=== PATIENT | female | born 1945 | race Caucasian/White ===

== ENCOUNTER 2018-06-27 01:07 | Outpatient (CLI) | payer MEDICARE, OTHER, SELFPAY ==
--- NOTE | 2018-06-27 13:42 | DI.RAD_ITS ---
SYMPTOMS/DIAGNOSIS: LT LOW BACK PAIN, M54.5, OTHER CHRONIC PAIN, G89.29, PSORIASIS, LT HIP PAIN, M25.552 LUMBAR SPINE: The vertebral bodies are well maintained in height. There is minimal disc space narrowing at L 3 - 4. There are small endplate osteophytes. No spondylolysis, spondylolisthesis or scoliosis is seen. The aorta shows calcification and is normal in diameter. IMPRESSION: Mild degenerative changes, greatest at L 3 - 4. PELVIS AND LEFT HIP: The hip joint spaces are well maintained. There is minimal acetabular spurring. Mild spurring is seen at the SI joints. IMPRESSION: Mild degenerative changes.
== END 2018-06-27 01:27 ==
PROVIDERS: PCP Family Medicine; Visit Provider Family Medicine
DX: M54.5 Low back pain (principal); M47.816 Spondylosis without myelopathy or radiculopathy, lumbar region; G89.29 Other chronic pain; L40.9 Psoriasis, unspecified; M25.552 Pain in left hip; M16.12 Unilateral primary osteoarthritis, left hip
CPT/HCPCS: 72110; 73502

== ENCOUNTER 2019-01-16 01:08 | Outpatient (CLI) | payer MEDICARE, OTHER, SELFPAY | END 2019-01-16 01:28 | PROVIDERS: PCP Family Medicine; Visit Provider Family Medicine | DX: E03.9 Hypothyroidism, unspecified (principal); I10 Essential (primary) hypertension | CPT/HCPCS: 36415; 80053; 80061; 83721; 83036; 84443 ==

== ENCOUNTER 2019-01-17 08:20 | Outpatient (CLI) | payer MEDICARE, OTHER, SELFPAY ==
[2019-01-17 11:01] LABS: ALT 18 U/L (12-78); AST 15 U/L (15-37); Alkaline Phosphatase 89 U/L (46-116); Anion Gap 9.9 mmol/L (3-11); BUN 20 mg/dL (7-18); Bilirubin, Total 0.4 mg/dL (0.2-1.0); CO2 28.1 mmol/L (21.0-32.0); CREATININE 0.77 mg/dL (0.55-1.02); Calcium 9.3 mg/dL (8.5-10.1); Calculated LDL 217; Chloride 105 mmol/L (98-107); Cholesterol 286 mg/dL (50-200); Glucose 104 mg/dL (70-100); HDL Cholesterol 51 mg/dL (40-60); Potassium 4.5 mmol/L (3.5-5.1); Sodium 143 mmol/L (136-145); TSH (W/Ref FT4) 2.91 uIU/mL (0.358-3.74); Total Protein 7.2 g/dL (6.4-8.2); Triglyceride 94 mg/dL (30-150)
== END 2019-01-17 08:40 ==
PROVIDERS: PCP Family Medicine; Visit Provider Family Medicine
DX: I10 Essential (primary) hypertension (principal); E78.5 Hyperlipidemia, unspecified; E03.9 Hypothyroidism, unspecified; R73.09 Other abnormal glucose
CPT/HCPCS: 36415; 80053; 80061; 83721; 83036; 84443

== ENCOUNTER 2019-08-22 11:09 | Outpatient (CLI) | payer MEDICARE, OTHER, SELFPAY ==
--- NOTE | 2019-08-22 11:21 | DI.RAD_ITS ---
EXAM: XR WRIST RT COMPL NAVICULAR INDICATION: eval R wrist for OA. COMPARISON: No exams were available for comparison TECHNIQUE: 2D digital imaging was performed. FINDINGS: There is mild narrowing and subchondral sclerosis at the articulation of the scaphoid with quadrangul ar bones. Articular surfaces are otherwise well maintained. The bones are intact and normally mobile paramedical examiner alized. The soft tissues are unremarkable. IMPRESSION: Mild arthritic changes of the right wrist.
== END 2019-08-22 11:29 ==
PROVIDERS: PCP Family Medicine; Referring Provider Family Medicine; Visit Provider Student in an Organized Health Care Education/Training Program
DX: M25.531 Pain in right wrist (principal); M19.031 Primary osteoarthritis, right wrist; M67.431 Ganglion, right wrist; I10 Essential (primary) hypertension
CPT/HCPCS: 99203; 99214; 73110

== ENCOUNTER 2019-10-08 06:18 | Day surgery (SDC) | payer MEDICARE, OTHER, SELFPAY ==
[2019-10-08 06:15] VITALS: BP 154/80; PULSE 80; RESP 18; TEMP 36.5; O2SAT 96
[2019-10-08] MEDS: Lactated Ringers 1,000 ML 80 ML IV (06:50)
--- NOTE | 2019-10-08 07:11 | W.PREOPHP ---
Date of service: 10/08/19 Time of Service: 07:12 Assessment and Plan Assessment and plan (1) Ganglion cyst of volar aspect of right wrist: Status: Acute Assessment and plan: Nyla is a 74-year-old with a volar wrist ganglion. Has been present for some time and bothers her. I am concerned that some of her pain is coming from the underlying arthritis. Nevertheless, it is prominent in the interferes with her ability to garden and to use the hand fully. Therefore, I offered excision of the cyst. I reviewed risk to include bleeding, infection, pain, stiffness, recurrence, damage to nerves and vessels, damage to the artery peer despite these risks, she elects to proceed. History of Present Illness History of Present Illness Chief Complaint: Right wrist mass and pain Narrative: Nyla is a 74-year-old who has had a prominent right volar wrist cyst. This is fluctuated over time but continues to cause some discomfort. She also has some underlying arthritis. The cyst prominence has been bothersome to her and she desires it to be removed. She denies numbness or tingling. She denies any skin changes or discolorations. Review of Systems All systems reviewed & are unremarkable except as noted in HPI and below PFSH Medical History Abdominal pain (Chronic 06/02/14) Arthritis (Chronic) PSORIAFORM Chronic left shoulder pain (Chronic 01/02/17) Deviated nasal septum (Chronic) turbinate surgery Disorder of lung (Chronic 07/30/03) 08/03 CXR: RML CALCIFICATION; S/P bx Dyshidrosis [pompholyx] (Chronic) Dysphagia (Chronic 06/02/14) s/p barium swallow Essential hypertension (Chronic 05/24/13) Gastroesophageal reflux disease with esophagitis (Chronic) 97 GIRISH TEST POS; 07 EGD: GERD, NEG H. PYLORI GERD (gastroesophageal reflux disease) Hyperlipidemia (Chronic) LIPITOR RX Hypothyroidism Hypothyroidism (Chronic) CHRONIC THYROIDITIS, S/P BX '97 Impaired fasting glucose (Chronic 07/04/11) Irritable colon (Chronic) RECURRENT ABD PAIN; NEG GB Joint pain (Chronic 04/29/12) HAND Knee pain (Chronic) PES ANSERINE BURSITIS; S/P TKR Medial epicondylitis of right elbow (Chronic 04/18/17) Medial epicondylitis of right elbow (Resolved 04/18/17) Neck pain (Chronic) DECREASED L BICEPS JERK; C5-6 NARROWING Neck pain (Inactive) Obstructive sleep apnea syndrome (Chronic) Sleep study showed moderate obstructive sleep apnea w/ some desaturation; no CPAP due to claustrophobia ASHLEIGH (obstructive sleep apnea) Osteopenia (Chronic) DEXA 03: -1.3/-0.3/-0.1; DEXA 05: -1.8/-0.9/-1.1 Psoriasis (Chronic 01/18/18) Pulmonary embolism (Chronic 12/07/12) Thought to be secondary to recent total knee replacement done [place] [facility] [place]. RUQ abdominal pain (Chronic 06/19/17) Seborrheic keratosis (Chronic 04/18/17) Stress due to illness of family member (Chronic 05/24/16) pulmonary hypertension Tubular adenoma (Chronic 11/28/17) Vitamin D deficiency (Chronic 07/08/11) Surgical History Colonoscopy - MAC (11/28/17) History of appendectomy (Resolved) History of hand surgery (Resolved) Hysterectomy, Laproscopic TOTAL; AGE 33. KNEE REPAIR (~2011) TORN MINISCUS Replacement of total knee joint RIGHT Family History Mother , 83 COPD (chronic obstructive pulmonary disease) Father , 65 Lung cancer Brain cancer Brother Psoriasis Maternal Grandfather No problems noted. Paternal Grandfather MS (multiple sclerosis) Maternal Grandmother Diabetes Paternal Grandmother Diabetes Son Essential hypertension Anxiety Hyperlipidemia Daughter Thyroid cancer Brother No problems noted. Social History Smoking/Tobacco Use Status: Never Alcohol Intake: current Alcohol Intake frequency: holidays/special occasions only Alcohol type: wine Drug use: Never Substance use type: does not use Caregiver/Support person: No Household members: spouse Housing: house Communication Needs: None Do you need help understanding health information?: Never Pets and animals: Yes Pets and animals: cat(s) Sexually active: No Do you think of yourself as: straight/heterosexual Current gender identity: female What is your relationship status?: How often do you talk on the phone with friends or family?: three or more times per week How often do you get together with friends or relatives?: three or more times per week How often do you attend nondenominational or zoroastrian services?: decline to answer Do you belong to any clubs or organized social groups?: yes Panel score (0-1 are the most socially isolated patients): 3 What type of physical activity do you participate in: walking and other Details: floor exercises Duration: < 15 minutes/day Frequency: 3-4 times per week Claudia/Sabianism: Methodist Special claudia needs: No Seatbelt use: always Drive intox or ride w/intox driver manager: No Do you feel safe at home: Yes Meds Home Medications and Allergies Home Medications Medication Instructions Recorded Confirmed Type cholecalciferol (vitamin D3) 1,000 unit PO DAILY 11/15/12 10/08/19 History betamethasone dipropionate 2 - 5 gm TOPICAL BID PRN #45 gm 10/30/17 09/02/19 History fluticasone propionate 2 spry NS BID PRN #1 bottle 01/05/18 09/02/19 History mometasone 0.1 % topical cream 1 applic TP DAILY #50 gm 10/15/18 10/08/19 Rx levothyroxine 50 mcg tablet 50 mcg PO DAILY #90 tab-cap 01/07/19 10/08/19 Rx losartan 100 mg tablet 100 mg PO DAILY #90 tab-cap 01/07/19 10/08/19 Rx pantoprazole 40 mg tablet,delayed 40 mg PO DAILY PRN #90 tab-cap 01/07/19 10/08/19 Rx release bupropion HCl 100 mg tablet,12 hr 100 mg PO BID #180 tab-cap 03/01/19 10/08/19 Rx sustained-release lorazepam 1 mg tablet 1 mg PO BID PRN #20 tab MDD 4 09/26/19 10/08/19 Rx Allergies Allergy/AdvReac Type Severity Reaction Status Date / Time neomycin Allergy Unknown Unverified 10/08/19 06:34 piperazine Allergy Unknown Unverified 10/08/19 06:34 Opioids - Morphine Analogues AdvReac Severe Psychosis Unverified 10/08/19 06:34 Nuepeto-Exd-Afm Reductase AdvReac Mild MUSCLE PAIN Unverified 10/08/19 06:34 Inhibitor Exam Const General: cooperative Nutritional Appearance: average body habitus Orientation: alert, awake and oriented x3 Resp Effort & Inspection: normal respiratory effort Auscultation: clear to auscultation bilaterally Cardio Rate: regular rate Rhythm: regular rhythm Extrem Other: Evaluation of the right wrist shows a 2 and half centimeter long volar wrist cyst. It is just ulnar to the radial artery. He does not change position with thumb flexion or wrist flexion. There is mild pain to palpation. Sensation intact light touch over the median, radial, ulnar nerve. Joseph test shows no dominance and hand blood flow. Palpable radial pulse. Results Last Vital Signs Temp 36.5 C 10/08/19 06:15 Pulse 80 10/08/19 06:15 Resp 18 10/08/19 06:15 BP 154/80 H 10/08/19 06:15 Pulse Ox 96 10/08/19 06:15
[2019-10-08] MEDS: Sodium Bicarbonate 50 MEQ/50 ML VIAL (07:38)
--- NOTE | 2019-10-08 08:16 | PDOC.DSDIS_ITS ---
Discharge Plan Disposition Patient Disposition: HOME Condition: Good Discharge Details Reason For Visit: Right volar wrist ganglion Attending Provider: Nicholas Vázquez Primary Care Provider: Suzanne Bunn Home Meds and New Rx's Prescriptions: New acetaminophen 500 mg tablet 1,000 mg PO Q8H PRN (Reason: pain) Qty: 60 RF: 3 ibuprofen 600 mg tablet 600 mg PO TID PRNQty: 30 RF: 3 Continued lorazepam 1 mg tablet 1 mg PO BID MDD 4 PRN (Reason: agitation) Qty: 20 RF: 0 cholecalciferol (vitamin D3) 1,000 UNIT capsule 1,000 unit PO DAILY RF: 0 betamethasone dipropionate 15 GM ointment 2 - 5 gm Topical BID PRNQty: 45 RF: 12 fluticasone propionate 16 GM spray,suspension 2 spry NS BID PRNQty: 1 RF: 12 mometasone 0.1 % cream 1 applic TP DAILY Qty: 50 RF: 4 levothyroxine 50 mcg tablet 50 mcg PO DAILY Qty: 90 RF: 12 losartan 100 mg tablet 100 mg PO DAILY Qty: 90 RF: 12 pantoprazole 40 mg tablet,delayed release (DR/EC) 40 mg PO DAILY PRN (Reason: GERD) Qty: 90 RF: 4 bupropion HCl [Wellbutrin SR] 100 mg tablet sustained-release 12 hr 100 mg PO BID Qty: 180 RF: 4 Discharge Instructions Additional Instructions: Activity: You may use your fingers for light activity. You should limit any excessive motion or forceful gripping for the first few weeks. You should wear the brace for support with any repetitive or heavy activities. Dressings: You should keep the initial surgical dressing in place for at least 2-3 days. You may remove your dressings and get the wound wet after 3 days. You should keep the dressings and the wound clean at all times. All of your sutures are buried in the skin. He can keep the wound covered with a light piece of gauze or Band-Aid until your follow-up. Medications: - You should take Tylenol (up to 1000 mg every 8 hours as needed ) and Ibuprofen (600 mg every 8 hours as needed) around the clock as prescribed or per blanket cutting machine operator's recommendations. Follow-up: 7-10 days for wound check and suture removal. Referrals: Nicholas Vázquez MD [ [facility] STAFF PHYSICIAN] - Equipment/Supplies: Brace Activity:: Elevate Remove Dressings/Wound Care:: 48 hours Shower/Bathe:: 48 hours Diet:: As Tolerated Discharge Orders Discharge Orders: Discharge Order (Routine); Ordered 10/08/19 Ordered By: Nicholas Vázquez DS: Diagnosis Discharge Diagnosis (1) Ganglion cyst of volar aspect of right wrist: Status: Acute
[2019-10-08 08:45] VITALS: BP 146/74; PULSE 67; RESP 18; TEMP 36.4; O2SAT 97
--- NOTE | 2019-10-08 22:42 | W.PM.OP ---
Date of service: 10/08/19 Time of Service: 08:42 Operative Note Operative Note DATE OF PROCEDURE: 10/08/19 PRE-OP DIAGNOSIS: Right volar Wrist Ganglion Cyst POST-OP DIAGNOSIS: other (Left Volar Wrist Ruptured Cyst) PROCEDURE: Excision of volar wrist mass - Right wrist SURGEON: Nicholas Vázquez ANESTHESIA: MAC ESTIMATED BLOOD LOSS: 0 PATHOLOGY: none sent TOURNIQUET TIME: 16 COMPLICATIONS: None Patient was transported to: PACU Patient's condition: stable Indications: Nyla is a 74yo female who I have seen for a volar wrist ganglion cyst. It has continued to be bothersome despite some conservative options. Its size and interference with activities continues to cause problems. Therefore, I offered excision of the volar wrist cyst. I discussed the risks to include bleeding, infection, pain, stiffness, damage to nerve and vessels, recurrence. Despite these risks, she elects to proceed. Findings: There is no notable cyst. There was a significant amount of fibrofatty and inflammatory tissue which could represent previous cyst rupture in the area of the mass felt by the patient. This tissue was resected and traced down all the way to the radioscaphoid joint. Procedure Description: Nyla was greeted in the preoperative holding area. Identity was confirmed and the correct site was identified and marked. Consent was reviewed the patient and signed. History and physical was updated. The patient to take not to the operating room placed in supine position. All bony prominences were well-padded. A nonsterile tourniquet was placed high up onto the right arm. The arms and prepped with ChloraPrep and draped in a standard fashion. The surgical site was marked on the skin and injected with 1% lidocaine with epinephrine buffered with sodium bicarbonate. The limb was exsanguinated and the tourniquet was inflated to 250 mmHg where it stayed for 16 minutes. The skin was incised sharply. Deeper dissection was carried out with tenotomy scissors and careful attention to vascular branches in this area. There is no noticeable cyst. In the level of the cyst and where the patient felt the mass there was a significant of fibrofatty tissue which had some inflammatory changes to it. This was dissected away from the radial artery and the deeper structures and this tissue was resected. Once again, I did not find any cystic structure. This was followed down all the way to the carpus. The wound was then thoroughly irrigated. The tourniquet was deflated. There is no major arterial bleeding in any other persistent ooze was cauterized with the bipolar electrocautery. The wound was dry. The deep layer was reapproximated with a 3-0 Vicryl. The skin was closed with a running 4-0 Monocryl followed by skin glue, gauze, and Panfilo wrap. The wrist was placed into a removable wrist brace. At the end the case all counts were correct. The patient was awakened from anesthesia and taken to the PACU in stable condition. There were no noted complications.
== END 2019-10-08 09:01 | disposition home or self-care (01) ==
PROVIDERS: PCP Family Medicine; Visit Provider Student in an Organized Health Care Education/Training Program
PROC: (CPT 25075; principal; 2019-10-08 07:30)
DX: R22.32 Localized swelling, mass and lump, left upper limb (principal)
CPT/HCPCS: 25075; NC; J1885; J2001; J2405; L3908

== ENCOUNTER 2020-01-28 11:37 | Outpatient (REF) | payer MEDICARE, OTHER, SELFPAY ==
[2020-01-28 14:46] LABS: ALT 20 U/L (14-59); AST 18 U/L (15-37); Albumin 4.2 g/dL (3.4-5.0); Alkaline Phosphatase 79 U/L (46-116); Anion Gap 9.8 mmol/L (3-11); BUN 22 mg/dL (7-18); Bilirubin, Total 0.5 mg/dL (0.2-1.0); CO2 27.2 mmol/L (21.0-32.0); Calcium 9.2 mg/dL (8.5-10.1); Chloride 104 mmol/L (98-107); Glucose 100 mg/dL (74-106); Potassium 4.2 mmol/L (3.5-5.1); Sodium 141 mmol/L (136-145); TSH (W/Ref FT4) 1.18 uIU/mL (0.36-3.74); Total Protein 7.2 g/dL (6.4-8.2)
[2020-01-28 14:50] LABS: Hemoglobin A1C 5.8 % (3.8-5.6)
[2020-01-30 04:29] LABS: Vitamin D 25 Total 52.4 ng/ml (30-100)
== END 2020-01-28 11:57 ==
LOC: LBN 11:37
PROVIDERS: PCP Family Medicine; Visit Provider Family Medicine
DX: E03.9 Hypothyroidism, unspecified (principal); I10 Essential (primary) hypertension; E11.9 Type 2 diabetes mellitus without complications; M85.80 Other specified disorders of bone density and structure, unspecified site
CPT/HCPCS: 80053; 82306; 83036; 84443

== ENCOUNTER 2020-01-29 02:19 | Outpatient (CLI) | payer MEDICARE, OTHER, SELFPAY ==
--- NOTE | 2020-01-29 07:00 | DI.MAMMO_ITS ---
EXAM: MG MAMMO SCREENING CLINICAL HISTORY: screening, Z12.39 TECHNIQUE: Bilateral full field digital CC and MLO mammographic images were obtained with 3D tomosyn thesis and utilizing computer aided detection (CAD). COMPARISON: Available for comparison. FINDINGS: Masses/Architectural Distortion: None seen. Microcalcifications: No suspicious pleomorphic-type are seen. Skin Thickening/Nipple Retraction: None. IMPRESSION: 1. No significant interval change with no specific features of malignancy noted. 2. Unless there is more urgent need, screening mammography is recommended, as per [employer] guidelines. BI-RADS Category 1 - Negative Breast Density - Category B - Scattered areas of fibroglandular density A negative radiographic report should not delay biopsy if a dominant or clinically suspicious mass is present. Up to ten percent of cancers are not identified on mammography. A negative report may reinforce clinical impression. Adenosis and dense breasts may obscure an underlying neoplasm. False positive reports average 6 to 10%. Patient will receive a letter notifying them of these results.
== END 2020-01-29 02:39 ==
PROVIDERS: PCP Family Medicine; Visit Provider Family Medicine
DX: Z12.31 Encounter for screening mammogram for malignant neoplasm of breast (principal)
CPT/HCPCS: 77063; 77067

== ENCOUNTER 2020-03-18 03:01 | Outpatient (CLI) | payer MEDICARE, OTHER, SELFPAY ==
[2020-03-18 08:52] LABS: Absolute Basophil Count 0.03 10^3/uL (0.0-0.2); Absolute Eosinophil Count 0.07 10^3/uL (0.0-0.7); Absolute Lymphocyte Count 1.41 10^3/uL (1.2-3.4); Absolute Monocyte Count 0.38 10^3/uL (0.1-0.8); Absolute Neutrophil Count 2.48 10^3/uL (1.2-6.7); Basophils % 0.7; Eosinophils % 1.6; HCT 39.2 % (36.0-46.0); HGB 13.2 g/dL (11.2-15.7); Lymphocytes % 32.3; MCH 29.7 pg (27.0-33.0); MCHC 33.7 % (32.0-36.0); MCV 88.1 fL (80-95); MPV 13.5 fL (8.0-11.0); Monocytes % 8.7; Neutrophils % 56.7; Nucleated RBC 0 %; Platelet Count 158 10^3/uL (130-400); RBC 4.45 10^6/uL (3.93-5.22); RDW 12.9 % (11.7-14.6); RDW-SD 41.7 fL; WBC 4.37 10^3/uL (4.4-10.8)
[2020-03-18 09:37] LABS: C-Reactive Protein < 0.05 mg/dL (0.0-0.3)
[2020-03-18 10:47] LABS: ESR 12 mm/hr (0-30)
[2020-03-19 09:55] LABS: Lyme Ab w Rflx to Lyme Confirm Negative (Negative)
[2020-03-20 00:14] LABS: Anaplasma phagocytophilum Negative (Negative); B. miyamotoi PCR Negative (Negative); Babesia divergens/MO-1 Negative (Negative); Babesia duncani Negative (Negative); Babesia microti Negative (Negative); Ehrlichia chaffeensis Negative (Negative); Ehrlichia ewingii/canis Negative (Negative); Ehrlichia muris eauclairensis Negative (Negative)
== END 2020-03-18 03:21 ==
PROVIDERS: PCP Family Medicine; Visit Provider Family Medicine
DX: M25.50 Pain in unspecified joint (principal)
CPT/HCPCS: 36415; 85652; 87798; 84443; 85025; 86140; 86618

== ENCOUNTER 2021-05-21 02:08 | Outpatient (CLI) | payer MEDICARE, OTHER, SELFPAY ==
[2021-05-21 09:36] LABS: ALT 22 U/L (14-59); AST 15 U/L (15-37); Albumin 3.9 g/dL (3.4-5.0); Alkaline Phosphatase 91 U/L (46-116); Anion Gap 7.4 mmol/L (3-11); BUN 21 mg/dL (7-18); Bilirubin, Total 0.4 mg/dL (0.2-1.0); CO2 32.6 mmol/L (21.0-32.0); CREATININE 0.8 mg/dL (0.55-1.02); Calcium 9.3 mg/dL (8.5-10.1); Calculated LDL 210 mg/dL (<100); Chloride 102 mmol/L (98-107); Cholesterol 284 mg/dL (<200); Glucose 98 mg/dL (74-106); HDL Cholesterol 46 mg/dL (40-60); Potassium 4.4 mmol/L (3.5-5.1); Sodium 142 mmol/L (136-145); TSH (W/Ref FT4) 4.55 uIU/mL (0.36-3.74); Total Protein 7.4 g/dL (6.4-8.2); Triglyceride 144 mg/dL (<150); Vitamin B12 308 pg/mL (193-986)
[2021-05-21 09:54] LABS: FREE T4 0.94 ng/dL (0.76-1.46)
== END 2021-05-21 02:09 | disposition home or self-care (01) ==
LOC: LBO 02:08
PROVIDERS: PCP Family Medicine; Visit Provider Family Medicine
DX: I10 Essential (primary) hypertension (principal); E78.5 Hyperlipidemia, unspecified; E03.9 Hypothyroidism, unspecified; R73.01 Impaired fasting glucose; E55.9 Vitamin D deficiency, unspecified; F32.9 Major depressive disorder, single episode, unspecified; M85.80 Other specified disorders of bone density and structure, unspecified site
CPT/HCPCS: 36415; 80053; 80061; 82607; 84439; 84443

== ENCOUNTER 2022-01-05 04:00 | Outpatient (CLI) | payer MEDICARE, OTHER, SELFPAY ==
[2022-01-05 14:25] LABS: TSH (W/Ref FT4) 1.28 uIU/mL (0.36-3.74)
[2022-01-06 10:02] LABS: Lyme Ab w Rflx to Lyme Confirm Negative (Negative)
[2022-01-07 12:47] LABS: Anaplasma phagocytophilum Negative (Negative); B. miyamotoi PCR Negative (Negative); Babesia divergens/MO-1 Negative (Negative); Babesia duncani Negative (Negative); Babesia microti Negative (Negative); Ehrlichia chaffeensis Negative (Negative); Ehrlichia ewingii/canis Negative (Negative); Ehrlichia muris eauclairensis Negative (Negative)
== END 2022-01-05 04:01 | disposition home or self-care (01) ==
LOC: LOS 04:00
PROVIDERS: PCP Family Medicine; Visit Provider Family Medicine
DX: S40.862A Insect bite (nonvenomous) of left upper arm, initial encounter (principal); W57.XXXA Bitten or stung by nonvenomous insect and other nonvenomous arthropods, initial encounter; I10 Essential (primary) hypertension
CPT/HCPCS: 36415; 87798; 84443; 86618

== ENCOUNTER 2022-08-17 03:08 | Outpatient (CLI) | payer MEDICARE, OTHER, SELFPAY ==
[2022-08-17 09:28] LABS: ALT 19 U/L (14-59); AST 21 U/L (15-37); Albumin 4.2 g/dL (3.4-5.0); Alkaline Phosphatase 83 U/L (46-116); Anion Gap -1.1 mmol/L (3-11); BUN 23 mg/dL (7-18); Bilirubin, Total 0.6 mg/dL (0.2-1.0); CO2 32.1 mmol/L (21.0-32.0); Calcium 9.6 mg/dL (8.5-10.1); Chloride 103 mmol/L (98-107); Estimated GFR 58.02 (mL/min/1.73m2); Glucose 104 mg/dL (74-106); Potassium 3.7 mmol/L (3.5-5.1); Sodium 134 mmol/L (136-145); TSH (W/Ref FT4) 2.27 uIU/mL (0.36-3.74); Total Protein 7.8 g/dL (6.4-8.2)
[2022-08-18 14:29] LABS: Hemoglobin A1C 5.8 % (<5.7)
== END 2022-08-17 03:09 | disposition home or self-care (01) ==
LOC: LBO 03:08
PROVIDERS: PCP Family Medicine; Visit Provider Family Medicine
DX: E03.9 Hypothyroidism, unspecified (principal); I10 Essential (primary) hypertension; R73.01 Impaired fasting glucose; R13.10 Dysphagia, unspecified
CPT/HCPCS: 36415; 80053; 83036; 84443

== ENCOUNTER 2023-02-01 01:52 | Outpatient (CLI) | payer MEDICARE, SELFPAY ==
--- NOTE | 2023-02-01 07:00 | DI.RAD_ITS ---
Exam(s) XR KNEE LT 3V AP,LAT,NANCY EXAM: XR KNEE LT 3V AP,LAT,NANCY CLINICAL HISTORY: l knee pain, M25.562. TECHNIQUE: 2D digital imaging was performed. Three views. COMPARISON: CR LEFT KNEE 3 VIEW COMPLETE from 04/17/2012 FINDINGS: BONES: No acute fracture is present. No bony destructive lesion is seen. JOINTS: There is severe narrowing of the medial femoral tibial joint space, periarticular spurring an d sclerosis. There is varus angulation. There is mild spurring at the tibial spines and femoral int ercondylar notch as well as patellofemoral joint. A small joint effusion is seen. SOFT TISSUE: Normal. IMPRESSION: Severe degenerative change of the medial femoral tibial joint. DATA REPOSITORY: RADIATION DOSE DELIVERED:
== END 2023-02-01 02:12 ==
LOC: DI 01:52
PROVIDERS: PCP Family Medicine; Visit Provider Family Medicine
DX: M17.9 Osteoarthritis of knee, unspecified (principal)
CPT/HCPCS: 73562

== ENCOUNTER 2023-02-07 03:34 | Outpatient (CLI) | payer MEDICARE, SELFPAY ==
[2023-02-07 12:41] LABS: ALT 17 U/L (14-59); AST 14 U/L (15-37); Albumin 3.8 g/dL (3.4-5.0); Alkaline Phosphatase 88 U/L (46-116); Anion Gap 7.3 mmol/L (3-11); BUN 21 mg/dL (7-18); Bilirubin, Total 0.4 mg/dL (0.2-1.0); CO2 29.7 mmol/L (21.0-32.0); CREATININE 0.9 mg/dL (0.55-1.02); Calcium 9.2 mg/dL (8.5-10.1); Chloride 105 mmol/L (98-107); Estimated GFR 65.84 (mL/min/1.73m2); Glucose 106 mg/dL (74-106); Potassium 3.8 mmol/L (3.5-5.1); Sodium 142 mmol/L (136-145); TSH (W/Ref FT4) 1.94 uIU/mL (0.36-3.74); Total Protein 7.2 g/dL (6.4-8.2)
== END 2023-02-07 03:35 | disposition home or self-care (01) ==
LOC: LOS 03:34
PROVIDERS: PCP Family Medicine; Visit Provider Family Medicine
DX: I10 Essential (primary) hypertension (principal); R13.10 Dysphagia, unspecified
CPT/HCPCS: 36415; 80053; 84443

== ENCOUNTER 2023-02-13 03:47 | Outpatient (CLI) | payer MEDICARE, SELFPAY ==
--- NOTE | 2023-02-13 06:45 | DI.NM_ITS ---
Exam(s) NM BONE SCAN 3 PHASE EXAM: NM BONE SCAN 3 PHASE CLINICAL HISTORY: H/O RT KNEE REPLACEMENT,? LOOSENING, RT KNEE PAIN, M25.561. TECHNIQUE: Injected Dose: 25 mCi Tc-99m MDP COMPARISON: CR XR KNEE LT 3V AP,LAT,NANCY from 02/01/2023 CR XR KNEE RT 3V AP,LAT,NANCY from 02/13/2023 FINDINGS: Perfusion: Symmetric. Blood Pool: Symmetric. Delayed: Increased activity noted in the medial femoral tibial joint space of the left knee consisten t with a severe degenerative changes seen on recent plain. Right knee shows increased activity at th e patella. Whole body images are unremarkable. IMPRESSION: Increased activity at the right patella. No definite abnormality is visible on plain films. Increased activity in the medial femoral tibial joint consistent with severe degenerative changes. DATA REPOSITORY:
--- NOTE | 2023-02-13 06:45 | DI.RAD_ITS ---
Exam(s) XR KNEE RT 3V AP,LAT,NANCY EXAM: XR KNEE RT 3V AP,LAT,NANCY CLINICAL HISTORY: slipping of r knee replacement,RT KNEE PAIN,H/O REPLACEMENT OF TOTAL KNEE. TECHNIQUE: 2D digital imaging was performed. Three views. COMPARISON: CR RIGHT KNEE COMPLETE from 03/29/2017 FINDINGS: There has been no change in the alignment of the total knee prosthesis. There are no surrounding abn ormal lucencies. No visible joint effusion. IMPRESSION: No acute abnormality. DATA REPOSITORY: RADIATION DOSE DELIVERED:
== END 2023-02-13 04:07 ==
LOC: DI 03:47
PROVIDERS: PCP Family Medicine; Visit Provider Family Medicine
DX: Z47.1 Aftercare following joint replacement surgery; Z96.652 Presence of left artificial knee joint; M17.11 Unilateral primary osteoarthritis, right knee
CPT/HCPCS: 73562; 78315

== ENCOUNTER 2023-02-23 03:20 | Outpatient (CLI) | payer MEDICARE, SELFPAY ==
--- NOTE | 2023-02-23 08:00 | DI.RAD_ITS ---
Exam(s) XR LUMBAR SPINE COMPLETE EXAM: XR LUMBAR SPINE COMPLETE CLINICAL HISTORY: LOW BACK PAIN and leg pain,LUMBAR RADICULOPATHY,M54.16. TECHNIQUE: 2D digital imaging was performed. COMPARISON: CR LUMBAR SPINE COMPLETE from 04/17/2012 FINDINGS: Five views. No evidence of fracture or listhesis nor intra-articular these facts. There is mild disc space narro wing at L3-4 level. Mild facet arthropathy also evident at this level. Other disc spaces exhibit no rmal height. No scoliosis. Bone density normal. SI joints age-appropriate. Calcifications are noted in both sides of the upper abdomen which are probably calcified granulomas i n the liver and spleen. IMPRESSION: As above. DATA REPOSITORY: RADIATION DOSE DELIVERED:
== END 2023-02-23 03:40 ==
LOC: DI 03:20
PROVIDERS: PCP Family Medicine; Visit Provider Family Medicine
DX: M47.26 Other spondylosis with radiculopathy, lumbar region; M54.50 Low back pain, unspecified
CPT/HCPCS: 72110

== ENCOUNTER → 2023-03-27 07:56 | Outpatient (BNVA) | payer MEDICARE, SELFPAY | PROVIDERS: PCP Family Medicine; Referring Provider Family Medicine; Visit Provider Student in an Organized Health Care Education/Training Program | DX: M17.12 Unilateral primary osteoarthritis, left knee (principal); M70.52 Other bursitis of knee, left knee; M76.891 Other specified enthesopathies of right lower limb, excluding foot | CPT/HCPCS: 20610; 99203; J1040 ==

== ENCOUNTER 2023-06-06 12:39 | Outpatient (REF) | payer MEDICARE, SELFPAY | END 2023-06-06 12:40 | disposition home or self-care (01) | LOC: LBN 12:39 | PROVIDERS: PCP Family Medicine; Visit Provider Family Medicine | DX: N76.0 Acute vaginitis (principal) | CPT/HCPCS: 87480; 87510; 87660 ==

== ENCOUNTER → 2023-07-03 14:17 | Outpatient (BNVA) | payer MEDICARE, SELFPAY | PROVIDERS: PCP Family Medicine; Referring Provider Family Medicine; Visit Provider Student in an Organized Health Care Education/Training Program | DX: M17.12 Unilateral primary osteoarthritis, left knee (principal); M70.52 Other bursitis of knee, left knee; M76.891 Other specified enthesopathies of right lower limb, excluding foot; Z96.651 Presence of right artificial knee joint | CPT/HCPCS: 20610; J1040 ==

== ENCOUNTER 2023-09-18 04:49 | Outpatient (CLI) | payer MEDICARE, SELFPAY ==
[2023-09-18 15:02] LABS: HCT 40.4 % (36.0-46.0); HGB 13.7 g/dL (11.2-15.7); MCHC 33.9 % (32.0-36.0); MCV 88 fL (80-95); MPV 11.4 fL (8.0-11.0); Platelet Count 214 10^3/uL (130-400); RBC 4.57 10^6/uL (3.93-5.22); RDW 12.7 % (11.7-14.6); RDW-SD 41.2 fL; WBC 5.72 10^3/uL (4.4-10.8)
[2023-09-18 15:37] LABS: Anion Gap 7.4 mmol/L (3-11); BUN 21 mg/dL (7-18); CO2 32.6 mmol/L (21.0-32.0); CREATININE 0.9 mg/dL (0.55-1.02); Calcium 9.4 mg/dL (8.5-10.1); Chloride 102 mmol/L (98-107); Estimated GFR 65.44 (mL/min/1.73m2); Glucose 89 mg/dL (74-106); Potassium 3.7 mmol/L (3.5-5.1); Sodium 142 mmol/L (136-145)
== END 2023-09-18 04:50 | disposition home or self-care (01) ==
LOC: LBO 04:49
PROVIDERS: PCP Family Medicine; Visit Provider Student in an Organized Health Care Education/Training Program
DX: Z01.818 Encounter for other preprocedural examination (principal); M17.12 Unilateral primary osteoarthritis, left knee
CPT/HCPCS: 36415; 80048; 85027

== ENCOUNTER 2023-09-18 15:55 | Outpatient (CLI) | payer MEDICARE, SELFPAY ==
--- NOTE | 2023-09-18 13:23 | DI.RAD_ITS ---
Exam(s) XR STANDING ALIGNMENT EXAM: XR STANDING ALIGNMENT CLINICAL HISTORY: PRE OP TKR. TECHNIQUE: 2D digital imaging was performed. Four images were obtained. COMPARISON: CR XR KNEE LT 3V AP,LAT,NANCY from 02/01/2023 CR XR KNEE RT 3V AP,LAT,NANCY from 02/13/2023 FINDINGS: BONES: The hips are well maintained. The patient has a stable right total knee replacement. Marked degenerative changes are seen in the left knee with joint space narrowing and osteophytes. The findi ngs are most marked in the medial femoral tibial joint space. The ankles are well maintained.There i s no significant leg length discrepancy. SOFT TISSUE: Normal. IMPRESSION: Osteoarthritis of the left knee as described. DATA REPOSITORY: RADIATION DOSE DELIVERED:
== END 2023-09-18 15:56 | disposition home or self-care (01) ==
LOC: DIORS 15:55
PROVIDERS: PCP Family Medicine; Visit Provider Physician Assistant
DX: M17.12 Unilateral primary osteoarthritis, left knee (principal); Z01.818 Encounter for other preprocedural examination
CPT/HCPCS: 36415; 80048; 85027; 77073

== ENCOUNTER 2023-09-30 18:04 | Emergency (ER) | payer MEDICARE, SELFPAY ==
[2023-09-30 18:13] VITALS: BP 149/81; PULSE 80; RESP 16; TEMP 36.8; O2SAT 96
[2023-09-30 18:34] LABS: Bilirubin Negative (Negative); Blood Moderate (Negative); Clarity Clear (Clear); Glucose Negative (Negative); Ketones Negative (Negative); Leukocyte Esterase Negative (Negative); Nitrite Negative (Negative); Specific Gravity <= 1.005 (1.005-1.025); Urobilinogen 0.2 mg/dL (Up to 0.2); pH 5.5 (5-8)
[2023-09-30 18:40] LABS: Bacteria Negative HPF (Negative); C & S Indicated? No; Casts Negative LPF (Negative); Crystals Negative HPF (Negative); Epithelial Cells Few HPF (Negative); Mucus Negative (Negative); WBC 0-2 HPF (0-5)
--- NOTE | 2023-09-30 18:48 | W.ED.GENAD ---
Discharge Plan Discharge Details Chief Complaint: FlankPain Primary Care Provider: Suzanne Bunn ED Provider: Priyanka Marie Home Meds and New Rx's Prescriptions: No Action mometasone 0.1 % solution 1 applic topical DAILY PRN (Reason: skin irritation) Qty: 60 5RF lorazepam 0.5 mg tablet 0.5 mg PO DAILY PRN (Reason: anxiety) Qty: 5 0RF cholecalciferol (vitamin D3) 50 mcg (2,000 unit) capsule 50 mcg PO DAILY estradiol 0.01 % (0.1 mg/gram) cream 1 g vaginal .twice weekly Qty: 42.5 5RF betamethasone dipropionate 15 GM ointment 2 - 5 gm Topical BID PRNQty: 45 Rx Instructions: DISPENSE CREAM NOT OINTMENT. dispense 45gm tube. Apply to arms and legs mometasone 0.1 % cream 1 applic TP DAILY Qty: 50 4RF bupropion HCl 150 mg tablet sustained-release 12 hr 150 mg PO QAM Qty: 90 5RF diazepam 5 mg tablet 5 mg PO BID PRN (Reason: vertigo) Qty: 20 0RF levothyroxine 50 mcg tablet 50 mcg PO DAILY Qty: 90 3RF pantoprazole 40 mg tablet,delayed release (DR/EC) 40 mg PO DAILY PRN (Reason: GERD) Qty: 90 4RF hydrochlorothiazide 12.5 mg tablet 12.5 mg PO QAM Qty: 90 3RF losartan 100 mg tablet 100 mg PO DAILY Qty: 90 12RF HPI General Date/Time Provider Initiated Documentation: 09/30/23 18:25. HPI Narrative: This 78-year-old female patient presents with a chief complaint of left lower back pain that began about 2 weeks ago. There was no inciting injury and it just began on its own. She points to her flank area and just above her iliac crest on the left-hand side. Her primary care doc about 10 days ago and they agreed on ibuprofen and heat. She states she takes 400 mg of ibuprofen in the morning, later Tylenol, another 400 mg of ibuprofen, and later another Tylenol. The latter is all on a daily basis. She reports that the pain is sharp and burning. It worsens when she moves or changes position. She has no abdominal pain. There is no numbness or weakness in her perineal area or bilateral lower extremities. She has no bowel or bladder dysfunction. She has no fever or chills. There is no pain radiating down her legs in a radicular pattern. Patient has no history of back surgery or diabetes Related Data Home Medications Medication Instructions Recorded Confirmed betamethasone dipropionate 0.05 % 2 - 5 gm topical BID PRN #45 grams 10/30/17 09/30/23 topical ointment mometasone 0.1 % topical cream 1 applic topical DAILY #50 grams 10/15/18 09/30/23 cholecalciferol (vitamin D3) 50 50 mcg PO DAILY 11/29/21 09/30/23 mcg (2,000 unit) capsule bupropion HCl 150 mg tablet,12 hr 150 mg PO QAM #90 tabs 10/03/22 09/30/23 sustained-release diazepam 5 mg tablet 5 mg PO BID PRN vertigo #20 tabs 10/25/22 09/30/23 mometasone 0.1 % topical solution 1 applic topical DAILY PRN skin 12/29/22 09/30/23 irritation #60 mL levothyroxine 50 mcg tablet 50 mcg PO DAILY #90 tab-caps 04/17/23 09/30/23 hydrochlorothiazide 12.5 mg tablet 12.5 mg PO QAM #90 tabs 05/10/23 09/30/23 pantoprazole 40 mg tablet,delayed 40 mg PO DAILY PRN GERD #90 05/10/23 09/30/23 release tab-caps estradiol 0.01% (0.1 mg/gram) 1 g vaginal .twice weekly #42.5 06/06/23 09/30/23 vaginal cream grams losartan 100 mg tablet 100 mg PO DAILY #90 tab-caps 06/28/23 09/30/23 lorazepam 0.5 mg tablet 0.5 mg PO DAILY PRN anxiety #5 tabs 09/14/23 09/30/23 Previous Rx's Medication Instructions Recorded mometasone 0.1 % topical cream 1 applic topical DAILY #50 grams 10/15/18 bupropion HCl 150 mg tablet,12 hr 150 mg PO QAM #90 tabs 10/03/22 sustained-release diazepam 5 mg tablet 5 mg PO BID PRN vertigo #20 tabs 10/25/22 mometasone 0.1 % topical solution 1 applic topical DAILY PRN skin 12/29/22 irritation #60 mL levothyroxine 50 mcg tablet 50 mcg PO DAILY #90 tab-caps 04/17/23 hydrochlorothiazide 12.5 mg tablet 12.5 mg PO QAM #90 tabs 05/10/23 pantoprazole 40 mg tablet,delayed 40 mg PO DAILY PRN GERD #90 05/10/23 release tab-caps estradiol 0.01% (0.1 mg/gram) 1 g vaginal .twice weekly #42.5 06/06/23 vaginal cream grams losartan 100 mg tablet 100 mg PO DAILY #90 tab-caps 06/28/23 lorazepam 0.5 mg tablet 0.5 mg PO DAILY PRN anxiety #5 tabs 09/14/23 Allergies Allergy/AdvReac Type Severity Reaction Status Date / Time neomycin Allergy Unknown Other (See Unverified 09/30/23 18:20 Comment) piperazine Allergy Unknown Hives Unverified 09/30/23 18:20 Opioids - Morphine Analogues AdvReac Severe Psychosis Unverified 09/30/23 18:20 [id number] Reductase AdvReac Mild MUSCLE PAIN Unverified 09/30/23 18:20 Inhibitor [[id number]-[id number]-Xfw Reductase Inhibitor] General Stated Complaint: FlankPain BERTHA: 3 Review of Systems Narrative: See HPI Exam Const General: no acute distress, well developed, well groomed and not in acute distress Nutritional Appearance: well nourished Orientation: alert and oriented x3 HENMT Head: normocephalic and atraumatic Ears: external ears normal Mouth: moist mucous membranes Eyes Conjunctivae: conjunctivae normal Neck Neck: full ROM and supple Chest Chest: normal inspection of the chest Resp Effort & Inspection: normal respiratory effort Auscultation: clear to auscultation bilaterally Cardio Rate: regular rate Rhythm: regular rhythm Heart Sounds: no murmurs and no rubs GI Inspection: normal to inspection and other ( Aorta not palpable) Palpation: soft, nontender and other (non distended) Auscultation: normal bowel sounds Back/Spine/Pelvis Back: no CVA tenderness Thoracic/Lumbar Spine: thoracic and lumbar spine normal to inspection, No thoracic spinal tenderness and No lumbar spinal tenderness Pelvis: no pain with anterior-posterior compression, no buttock tenderness, no unilateral elevation of iliac crest and other ( no pain on palpation of the iliac crest or SI joints) Coccyx: other ( no pain on palpation of the iliac crest or SI joints) Skin General skin exam: no rashes or lesions noted and other (pink, warm, dry) Neuro General: patient alert, patient awake and patient oriented x3 Speech: speech normal Motor: strength 5/5 throughout (BLE) and other (DENSON) Sensory Exam: no sensory deficits noted and other ( no perineal or lower extremity sensory defects) DTR's: Rt Patellar: 2+, Lt Patellar: 2+, Rt Ankle: 2+ and Lt Ankle: 2+ Extrem General: normal to inspection, full ROM, pedal edema present and other (no calf TTP) Psych Mental Status: mental status grossly normal Speech and Movement: speech and movement normal Affect: normal affect Course Vital Signs Vital signs: Vital Signs Temperature 36.8 C 09/30/23 18:13 Pulse 80 09/30/23 18:13 Respiratory Rate 16 09/30/23 18:13 Blood Pressure 149/81 H 09/30/23 18:13 Pulse Oximetry 96 09/30/23 18:13 Temperature 36.8 C 09/30/23 18:13 Pulse 80 09/30/23 18:13 Respiratory Rate 16 09/30/23 18:13 Respiratory Effort Normal, Non-Labored 09/30/23 18:34 Blood Pressure 149/81 H 09/30/23 18:13 Blood Pressure Position Supine 09/30/23 18:13 Pulse Oximetry 96 09/30/23 18:13 Oxygen Delivery Method Room Air 09/30/23 18:13 Oxygen Flow Rate 0 09/30/23 18:13 Pain Level 8 09/30/23 18:34 Lab/Test Results Lab/Test Results: Laboratory Tests Range/Units 09/30/23 18:20 Urine Color (Yellow) Yellow Urine Clarity (Clear) Clear Urine pH (5-8) 5.5 Ur Specific [place] (1.005-1.025) <= 1.005 Urine Protein (Neg-Trace) mg/dL Negative Urine Ketones (Negative) mg/dL Negative Urine Blood (Negative) Moderate H Urine Nitrite (Negative) Negative Urine Bilirubin (Negative) Negative Urine Urobilinogen (Up to 0.2) mg/dL 0.2 Ur Leukocyte Esterase (Negative) Negative Urine RBC (0-2) HPF 5-10 H Urine WBC (0-5) HPF 0-2 Ur Epithelial Cells (Negative) HPF Few Urine Crystals (Negative) HPF Negative Urine Bacteria (Negative) HPF Negative Urine Casts (Negative) LPF Negative Urine Mucus (Negative) Negative Ur Culture Indicated? No Urine Glucose (Negative) mg/dL Negative Medical Decision Making Patient had moderate blood in her urine which translated to 5-10 red blood cells. She had few epis and no white blood cells. Her story is certainly not consistent with renal calculi. Her CBC is normal except for a platelet count of 120. BUN and creatinine are 23 and 1.1 with a GFR of 51. Woman is getting IV fluids. We are Scanning her abdomen and pelvis as well as doing spinal recons. Her glucose was 119 and the remainder of her labs are unremarkable. 2100. Patient's lumbosacral spine results were discussed with her. She is drowsy from the Valium but overall feels improved. Her abdomen and pelvic CT formal read. 2105. AP CT are unremarkable. I will send the pt. home with a prescription for Valium and Celebrex. I Have asked her to call her primary care doctor on Monday for recheck. She may need to put off her knee surgery on Monday due to this back issue. Imaging Data Radiologic Study: Imaging: CT Scan ( CT LS spine: At L3-4 she has a small broad-based posterior disc bulge abutting and mildly deforming the thecal sac. There is no significant central canal narrowing. There is mild bilateral foraminal narrowing. Patient has moderate-sized broad-based posterior disc bulge resulting in moderate kody) Radiologic Study #2: My impression: CT AP unremarkable Quality:SDOH Health Related Social Needs: No Data to Display PFSH All Active Problems (Updated 06/06/23 @ 08:14 by Suzanne Bunn MD, DC) Vaginitis (Acute) Sacroiliac dysfunction (Acute) Tendinitis of right quadriceps tendon (Acute) Pes anserinus bursitis of left knee (Acute) Primary osteoarthritis of left knee (Acute) Lumbar radiculopathy (Acute) Shoulder pain (Acute) Vertigo (Acute) Hypertension (Chronic) Tick bite of axillary region (Acute) Cough (Acute) Wrist pain (Acute) Chronic thumb pain (Acute) Sensorineural hearing loss of both ears (Acute) Decreased hearing (Acute) Arthralgia (Acute) Right leg pain (Acute) Left hip pain (Acute) Grief (Acute) Vitamin D deficiency (Chronic 07/08/11) Tubular adenoma (Chronic 11/28/17) Seborrheic keratosis (Chronic 04/18/17) RUQ abdominal pain (Chronic 06/19/17) Psoriasis (Chronic 01/18/18) Osteopenia (Chronic) DEXA 03: -1.3/-0.3/-0.1; DEXA 05: -1.8/-0.9/-1.1 Obstructive sleep apnea syndrome (Chronic) Sleep study showed moderate obstructive sleep apnea w/ some desaturation; no CPAP due to claustrophobia Neck pain (Chronic) DECREASED L BICEPS JERK; C5-6 NARROWING Medial epicondylitis of right elbow (Chronic 04/18/17) Knee pain (Chronic) PES ANSERINE BURSITIS; S/P TKR Joint pain (Chronic 04/29/12) HAND Irritable colon (Chronic) RECURRENT ABD PAIN; NEG GB Impaired fasting glucose (Chronic 07/04/11) Hypothyroidism (Chronic) CHRONIC THYROIDITIS, S/P BX '97 Hyperlipidemia (Chronic) LIPITOR RX Gastroesophageal reflux disease with esophagitis (Chronic) 97 GIRISH TEST POS; 07 EGD: GERD, NEG H. PYLORI Essential hypertension (Chronic 05/24/13) Dysphagia (Chronic 06/02/14) s/p barium swallow Dyshidrosis [pompholyx] (Chronic) Disorder of lung (Chronic 07/30/03) 08/03 CXR: RML CALCIFICATION; S/P bx Deviated nasal septum (Chronic) turbinate surgery Chronic left shoulder pain (Chronic 01/02/17) Arthritis (Chronic) PSORIAFORM Abdominal pain (Chronic 06/02/14) Pulmonary embolism (Chronic 12/07/12) Thought to be secondary to recent total knee replacement done at [facility] on 11/27/2012. Medical History (Updated 06/06/23 @ 08:14 by Suzanne Bunn MD, [place]) Skin change URI (upper respiratory infection) Ganglion cyst of volar aspect of right wrist Medial epicondylitis of right elbow (04/18/17) Neck pain Stress due to illness of family member (05/24/16) pulmonary hypertension Depressive disorder GERD (gastroesophageal reflux disease) Hypothyroidism ASHLEIGH (obstructive sleep apnea) Surgical History History of appendectomy History of hand surgery Replacement of total knee joint RIGHT KNEE REPAIR (~2011) TORN MINISCUS Hysterectomy, Laproscopic TOTAL; AGE 33. Colonoscopy - MAC (11/28/17) Family History Mother , 83 COPD (chronic obstructive pulmonary disease) Father , 65 Lung cancer Brain cancer Brother Psoriasis Maternal Grandfather No problems noted. Paternal Grandfather MS (multiple sclerosis) Maternal Grandmother Diabetes Paternal Grandmother Diabetes Son Essential hypertension Anxiety Hyperlipidemia Daughter Thyroid cancer Brother No problems noted. Social History (Updated 06/02/22 @ 07:46 by Lori Fuller) Smoking/Tobacco Use Status: Never Second Hand Exposure: Yes Smoking risk assessment performed?: Yes Alcohol Intake: current Alcohol Intake frequency: holidays/special occasions only Alcohol type: wine Drug use: Never Substance use type: does not use Counseling given: No Counseling provided: none Caregiver/Support person: No Household members: none Housing: house Communication Needs: None Do you need help understanding health information?: Never Pets and animals: Yes Pets and animals: cat(s) Sexually active: No Do you think of yourself as: straight/heterosexual Current gender identity: female What is your relationship status?: How often do you talk on the phone with friends or family?: three or more times per week How often do you get together with friends or relatives?: three or more times per week How often do you attend restorationism or oriental orthodox services?: decline to answer Do you belong to any clubs or organized social groups?: yes Panel score (0-1 are the most socially isolated patients): 2 What type of physical activity do you participate in: aerobic Duration: < 15 minutes/day Frequency: 3-4 times per week Claudia/Pentecostalism: Yarsani Special claudia needs: No Seatbelt use: always Helmet use: No Drive intox or ride w/intox cdl company driver: No Do you feel safe at home: Yes
--- NOTE | 2023-09-30 18:51 | DI.CT_ITS ---
Exam(s) CT LUMBAR SPINE RECONS CT ABDOMEN PELVIS W EXAM: CT ABDOMEN PELVIS W CLINICAL HISTORY: lower back and L flank pain, HTN, eval aorta. TECHNIQUE: Imaging Protocol: Axial computed tomography images with coronal and sagittal reformatted images were created and reviewed CONTRAST MATERIAL: Intravenous: Omnipaque 350 Contrast volume:100 ml Oral: no COMPARISON: US ABDOMEN ULTRASOUND (P) from 10/17/[address] LUMBAR SPINE RECONS from 09/30/2023 FINDINGS: ABDOMEN and PELVIS: Lung Bases: No acute findings. Mild atelectasis. Liver: Normal density. Liver cysts again noted. No suspicious mass. Gallbladder and biliary tract: No radiodense calculus or dilation. Pancreas: Normal density. No abnormal calcifications or inflammatory process. No evidence of mass. Spleen: Normal. Kidneys: Normal size, contour and axis. No radiodense stones. No obstructive uropathy. No suspicious masses seen. Adrenal glands: No masses seen. Vasculature: Abdominal aorta non-dilated. Moderate atherosclerotic changes. No evidence of dissecti on. Soft tissues: Unremarkable. Bladder: Nearly empty. No gross wall thickening. No calculi.No focal mass. Bowel: Severe diverticulosis, greatest at the sigmoid.. No evidence of diverticulitis. No obstructi on. No bowel wall thickening. Appendix not seen.. Peritoneal cavity: No ascites. No focal collection or mesenteric inflammatory response. Bones: Unremarkable for age. No evidence of fracture. Disc spaces are maintained. No evidence of s peter stenosis. Mild degenerative changes. Reproductive organs: Question partial hysterectomy. Ovaries not seen. Lymph nodes: Unremarkable. IMPRESSION:: No acute abnormality in the abdomen or pelvis. Atherosclerotic changes of the abdomina l aorta without evidence of aneurysm or dissection. Mild degenerative changes in the lumbar spine. No evidence of disc herniation or fracture. RADIATION DOSE DELIVERED: Total DLP DATA REPOSITORY: All CT scans at this facility are submitted to the National Radiology Data Registry (NRDR) Dose Index Registry (DIR) with the [employer] (ACR). RADIATION OPTIMIZATION: All CT scans at this facility use at least one of these dose optimization te chniques: automated exposure control; mA and/or kV adjustment per patient size (includes targeted exa ms where dose is matched to clinical indication); or iterative reconstruction.
[2023-09-30] MEDS: Normal Saline 1,000 ML 1000 ML IV (18:59)
[2023-09-30] MEDS: diazePAM 10 MG/2 ML SYR 2.5 MG IVP (19:00)
[2023-09-30] MEDS: Ketorolac 15 MG/ML VIAL IVP (19:02)
[2023-09-30 19:10] LABS: HCT 35.7 % (36.0-46.0); HGB 12.1 g/dL (11.2-15.7); MCH 29.3 pg (27.0-33.0); MCHC 33.9 % (32.0-36.0); MCV 86 fL (80-95); MPV 12.9 fL (8.0-11.0); Platelet Count 120 10^3/uL (130-400); RBC 4.13 10^6/uL (3.93-5.22); RDW 12.7 % (11.7-14.6); RDW-SD 40.3 fL; WBC 5.04 10^3/uL (4.4-10.8)
[2023-09-30 19:24] LABS: ALT 18 U/L (14-59); AST 14 U/L (15-37); Albumin 3.6 g/dL (3.4-5.0); Alkaline Phosphatase 99 U/L (46-116); Anion Gap 9.1 mmol/L (3-11); BUN 23 mg/dL (7-18); Bilirubin, Total 0.3 mg/dL (0.2-1.0); CO2 28.9 mmol/L (21.0-32.0); CREATININE 1.1 mg/dL (0.55-1.02); Calcium 8.9 mg/dL (8.5-10.1); Chloride 103 mmol/L (98-107); Estimated GFR 51.43 (mL/min/1.73m2); Glucose 119 mg/dL (74-106); Potassium 3.5 mmol/L (3.5-5.1); Sodium 141 mmol/L (136-145)
[2023-09-30] MEDS: Omnipaque 350 MG/ML 100 ML BTL IJ (19:37)
[2023-09-30] MEDS: Normal Saline - Diluent 50 ML VIAL IJ (19:38)
[2023-09-30 19:58] VITALS: BP 146/61; PULSE 71; RESP 18; O2SAT 96
--- NOTE | 2023-09-30 20:30 | DI.VRAD_ITS ---
PROCEDURE INFORMATION: Exam: CT Lumbar Spine Without Contrast Exam date and time: 09/30/2023 7:40 PM Age: 78 years old Clinical indication: Lumbago with sciatica; Left; Patient HX: L pain iliac crest and flank, worse with moving TECHNIQUE: Imaging protocol: Computed tomography of the lumbar spine without contrast. COMPARISON: CR XR LUMBAR SPINE COMPLETE 02/23/2023 12:40 PM FINDINGS: Bones/joints: No acute lumbar fracture or malalignment is seen. Endplate irregularity. Disc height relatively preserved. Small anterior osteophytes. No focal disc herniation. No significant central canal narrowing or neural foraminal narrowing. T11-T12: Disc height relatively preserved. Endplate irregularity. No focal disc herniation. No significant central canal narrowing or neural foraminal narrowing. T12-L1: Disc height relatively preserved. Endplate irregularity. No focal disc herniation. No significant central canal narrowing or neural foraminal narrowing. L1-L2: Disc height preserved. No focal disc herniation. No significant central canal narrowing or neural foraminal narrowing. L2-L3: Mild loss of disc height. Mild anterior osteophytic ridging. No focal disc herniation. No significant central canal narrowing or neural foraminal narrowing. L3-L4: Mild loss of disc height. Mild anterior osteophytic ridging. Small broad-based posterior disc bulge abutting and mildly deforming the thecal sac. Mild thickening of the ligamentum flavum. Mild right-sided facet arthrosis. No significant central canal narrowing. Mild bilateral foraminal narrowing. L4-L5: Disc height preserved. Moderate-sized broad-based posterior disc bulge with ligamentum flavum thickening resulting in moderate central canal narrowing. Mild bilateral facet arthrosis. Mild bilateral foraminal narrowing. L5-S1: Disc height preserved. No focal disc herniation. No significant central canal narrowing or neural foraminal narrowing. Soft tissues: No gross superficial soft tissue fluid collection or mass is seen through the visualized lumbar region. IMPRESSION: No acute lumbar fracture or malalignment. Mild lumbar degenerative changes, as detailed level by level above. Dictated and Authenticated by: Jessee Fraga MD. Ordering:MERT Mathew MD
--- NOTE | 2023-09-30 20:37 | DI.VRAD_ITS ---
PROCEDURE INFORMATION: Exam: CT Abdomen And Pelvis With Contrast Exam date and time: 09/30/2023 7:40 PM Age: 78 years old Clinical indication: Abdominal pain; Left; Patient HX: Lower back and L flank pain, HTN, eval aorta TECHNIQUE: Imaging protocol: Computed tomography of the abdomen and pelvis with contrast. Contrast material: OMNIPAQUE 350; Contrast volume: 100 ml; Contrast route: INTRAVENOUS (IV); COMPARISON: CR XR hip LT complete AP pelvis 06/27/2018 1:23 PM FINDINGS: Lungs: Minimal dependent atelectasis. Liver: Small indeterminate hypoattenuating hepatic lesions, incompletely characterized but most likely small cysts and/or hemangiomas. Gallbladder and bile ducts: Gallbladder partially collapsed. No calcified gallstones seen. No biliary dilatation. Pancreas: Normal appearing pancreas. Spleen: Calcified splenic granulomas. Adrenal glands: Normal appearing adrenal glands. Kidneys and ureters: Normal appearing kidneys. No hydronephrosis. Stomach and bowel: No oral contrast. Stomach partially decompressed. No small bowel dilatation to suggest obstruction. Extensive colonic diverticulosis, most concentrated through the sigmoid region. No evidence of diverticulitis or colitis. Appendix: Appendix not identified, obscured if present. Correlation with surgical history recommended. If there is clinical concern for acute appendicitis and the patient still has an appendix, additional evaluation would be recommended. Intraperitoneal space: No gross ascites or free air. Vasculature: Normal caliber abdominal aorta. No aneurysmal dilatation or dissection. Mild atherosclerotic calcification. Apparent severe narrowing of the right renal artery origin, not optimally evaluated by today's exam. Lymph nodes: Scattered small mesenteric lymph nodes, nonspecific. Urinary bladder: Urinary bladder partially decompressed but circumferentially thick-walled with hazy indistinctness of the bladder margins. Reproductive: Prior hysterectomy. Ovaries not identified, obscured if present. Correlation with surgical history recommended. Bones/joints: No acute fracture seen among the bones of the abdomen or pelvis. Soft tissues: Mild prominence of the perirectal veins suggesting possible hemorrhoids. No significant ventral or inguinal hernia. IMPRESSION: 1. No abdominal aortic aneurysm or dissection. 2. Normal-appearing kidneys no hydronephrosis or evidence of obstructive uropathy. 3. Urinary bladder partially decompressed but circumferentially thick-walled with hazy indistinctness of the bladder margins. Acute cystitis could have this appearance although an artifactual appearance created by underdistention can also produce apparent bladder wall thickening. Clinical correlation is recommended. Dictated and Authenticated by: Jessee Fraga MD. Ordering:MERT Mathew MD
[2023-09-30 21:02] VITALS: BP 169/69; PULSE 77; RESP 18; O2SAT 98
== END 2023-09-30 21:29 | disposition home or self-care (01) ==
PROVIDERS: Emergency Provider Emergency Medicine; PCP Family Medicine
DX: M54.50 Low back pain, unspecified (principal); I10 Essential (primary) hypertension; E78.5 Hyperlipidemia, unspecified
CPT/HCPCS: 80053; 85027; 96361; 96374; 96375; 99284; 74177; 81003; 81015; J1885; J3360; J3490

== ENCOUNTER 2023-10-04 07:13 | Observation (INO) | payer MEDICARE, SELFPAY ==
[2023-10-04] VITALS (25 sets, daily range): BP systolic 121–193; BP diastolic 46–90; PULSE 60–80; RESP 11–18; TEMP 35.8–36.6; O2SAT 86–99; BMI 24.8
[2023-10-04] MEDS: Gabapentin 300 MG CAP PO (07:28)
[2023-10-04] MEDS: Celecoxib 200 MG CAP 400 MG PO (07:28)
[2023-10-04] MEDS: Acetaminophen 500 MG TAB 1000 MG PO (07:28)
[2023-10-04] MEDS: Lactated Ringers 1,000 ML 80 ML IV ×2 (07:39→14:17)
--- NOTE | 2023-10-04 08:05 | ANES.PREOP_ITS ---
General Info Date of Service Date Performed: 10/04/23 Height: 5 ft 2 in Weight: 61.6 kg Body Mass Index (BMI): 24.8 Surgical Procedure: Operation Date: 10/04/23 09:55 Proposed Procedure Side Surgeon p Knee Total Arthroplasty, Cementless CR Left Nicholas Vázquez MD Meds Allergies and Home Medications Allergies Allergy/AdvReac Type Severity Reaction Status Date / Time neomycin Allergy Unknown Other (See Verified 10/04/23 07:20 Comment) piperazine Allergy Unknown Hives Verified 10/04/23 07:20 Opioids - Morphine Analogues AdvReac Severe Psychosis Verified 10/04/23 07:20 Oyepcdg-[id number]-EpI Reductase AdvReac Mild MUSCLE PAIN Verified 10/04/23 07:20 Inhibitor [Nudzyli-Qxr-Dcy Reductase Inhibitor] Home Medication Medication Instructions Recorded betamethasone dipropionate 0.05 % 2 - 5 gm topical BID PRN #45 grams 10/30/17 topical ointment mometasone 0.1 % topical cream 1 applic topical DAILY #50 grams 10/15/18 cholecalciferol (vitamin D3) 50 50 mcg PO DAILY 11/29/21 mcg (2,000 unit) capsule bupropion HCl 150 mg tablet,12 hr 150 mg PO QAM #90 tabs 10/03/22 sustained-release mometasone 0.1 % topical solution 1 applic topical DAILY PRN skin 12/29/22 irritation #60 mL levothyroxine 50 mcg tablet 50 mcg PO DAILY #90 tab-caps 04/17/23 hydrochlorothiazide 12.5 mg tablet 12.5 mg PO QAM #90 tabs 05/10/23 pantoprazole 40 mg tablet,delayed 40 mg PO DAILY PRN GERD #90 05/10/23 release tab-caps estradiol 0.01% (0.1 mg/gram) 1 g vaginal .twice weekly #42.5 06/06/23 vaginal cream grams losartan 100 mg tablet 100 mg PO DAILY #90 tab-caps 06/28/23 lorazepam 0.5 mg tablet 0.5 mg PO DAILY PRN anxiety #5 tabs 09/14/23 acetaminophen 500 mg tablet 1,000 mg (2 x 500 mg) PO TID #90 10/04/23 tabs aspirin 81 mg tablet,delayed 81 mg PO BID #60 tabs 10/04/23 release celecoxib 200 mg capsule 200 mg PO BID #60 caps 10/04/23 dexamethasone 4 mg tablet 4 mg PO DAILY #2 tabs 10/04/23 gabapentin 300 mg capsule 300 mg PO QHS #14 caps 10/04/23 tramadol 50 mg tablet 50 mg PO Q4H PRN #20 tabs 10/04/23 Current Visit Medications: Current Medications Generic Name Dose Route Start Last Admin Trade Name Freq PRN Reason Stop Dose Admin Acetaminophen 1,000 mg 10/04/23 06:00 10/04/23 07:28 Acetaminophen 500 Mg Tab PO 11/03/23 05:59 1,000 mg PREOP RAFIA Administration Acetaminophen 1,000 mg 10/04/23 07:13 Acetaminophen 500 Mg Tab PO 11/03/23 07:12 TID PRN PRN Analgesia Celecoxib 400 mg 10/04/23 06:00 10/04/23 07:28 Celecoxib 200 Mg Cap PO 11/03/23 05:59 400 mg PREOP RAFIA Administration Docusate Sodium 100 mg 10/04/23 07:13 Docusate Sodium 100 Mg Cap PO 11/03/23 07:12 BID PRN PRN Constipation Gabapentin 300 mg 10/04/23 06:00 10/04/23 07:28 Gabapentin 300 Mg Cap PO 11/03/23 05:59 300 mg PREOP RAFIA Administration Tranexamic Acid 1,000 mg/ 60 mls @ 360 mls/hr 10/04/23 06:00 Sodium Chloride IVPB 11/03/23 05:59 PREOP RAFIA Ringer's Solution 1,000 mls @ 80 mls/hr 10/04/23 06:00 10/04/23 07:39 IV 11/02/23 23:59 80 mls/hr INFUSION RAFIA Administration Cefazolin Sodium/Dextrose 2 gm in 50 mls @ 100 mls/hr 10/04/23 06:00 Ancef Duplex IVPB 10/04/23 16:00 PREOP RAFIA IV Miscellaneous Supplies 1 each 10/04/23 06:00 Iv Access IV 11/02/23 23:59 DIRECTED RAFIA Ondansetron HCl 4 mg 10/04/23 07:13 Ondansetron 4 Mg/2 Ml Vial IVP 11/03/23 07:12 Q6H PRN PRN Nausea Polyethylene Glycol 17 gm 10/04/23 07:13 Polyethylene Glycol 3350 17 Gm Packet PO 11/03/23 07:12 BID PRN PRN Constipation Sodium Chloride 0 ml 10/04/23 06:00 Normal Saline Flush 10 Ml Syr IV 11/02/23 23:59 PRN PRN Sodium Chloride 0 ml 10/04/23 06:00 Normal Saline 10 Ml Vial IJ 11/02/23 23:59 DIRECTED PRN Sterile Water 0 ml 10/04/23 06:00 Water,Injection,Sterile 10 Ml Vial IJ 11/02/23 23:59 DIRECTED PRN Tramadol HCl 50 mg 10/04/23 07:13 Tramadol 50 Mg Tab PO 11/03/23 07:12 Q4H PRN PRN Pain PFSH Active Problems Active Problems: Problem Status Onset Code Lower back pain M54.50 Vaginitis N76.0 Sacroiliac dysfunction M53.3 Tendinitis of right quadriceps tendon M76.891 Pes anserinus bursitis of left knee M70.52 Primary osteoarthritis of left knee M17.12 Lumbar radiculopathy M54.16 Shoulder pain M25.519 Vertigo R42 Hypertension I10 Tick bite of axillary region S40.869A, W57.XXXA Cough R05.9 Wrist pain M25.539 Chronic thumb pain M79.646, G89.29 Sensorineural hearing loss of both ears H90.3 Decreased hearing H91.90 Arthralgia M25.50 Right leg pain M79.604 Fatigue 09/11/12 R53.83 Left hip pain Grief F43.21 Vitamin D deficiency 07/08/11 E55.9 Tubular adenoma 11/28/17 D36.9 Seborrheic keratosis 04/18/17 L82.1 RUQ abdominal pain 06/19/17 R10.11 Psoriasis 01/18/18 L40.9 Osteopenia M85.80 Obstructive sleep apnea syndrome G47.33 Neck pain M54.2 Medial epicondylitis of right elbow 04/18/17 M77.01 Knee pain M25.569 Joint pain 04/29/12 M25.50 Irritable colon K58.9 Impaired fasting glucose 07/04/11 R73.01 Hypothyroidism E03.9 Hyperlipidemia E78.5 Gastroesophageal reflux disease with esophagitis K21.0 Essential hypertension 05/24/13 I10 Dysphagia 06/02/14 R13.10 Dyshidrosis [pompholyx] L30.1 Disorder of lung 07/30/03 J98.4 Deviated nasal septum J34.2 Chronic left shoulder pain 01/02/17 M25.512, G89.29 Arthritis M19.90 Abdominal pain 06/02/14 R10.9 Pulmonary embolism 12/07/12 I26.99 Medical History Medical History Skin change URI (upper respiratory infection) Ganglion cyst of volar aspect of right wrist Medial epicondylitis of right elbow (04/18/17) Neck pain Stress due to illness of family member (05/24/16) pulmonary hypertension Depressive disorder GERD (gastroesophageal reflux disease) Hypothyroidism ASHLEIGH (obstructive sleep apnea) Surgical History Surgical History History of appendectomy History of hand surgery Replacement of total knee joint RIGHT KNEE REPAIR (~2011) TORN MINISCUS Hysterectomy, Laproscopic TOTAL; AGE 33. Colonoscopy - MAC (11/28/17) Tobacco Smoking/Tobacco Use Status: Never Passive smoking exposure: Yes Second hand exposure: Yes Alcohol Alcohol Intake: current Alcohol intake frequency: holidays/special occasions only Alcohol type: wine Substance Use Substance use: Never Substance use type: does not use Counseling provided: none Vital Signs and Lab Results Vital Signs Most Recent Vital Signs in EMR: Most Recent Vital Signs Temp Pulse Resp BP Pulse Ox 36.6 C 80 16 186/60 H 95 10/04/23 07:13 10/04/23 07:13 10/04/23 07:13 10/04/23 07:40 10/04/23 07:13 Lab Results Blood Type / Crossmatch: No Data to Display Complete Blood Count: White Blood Count 5.04 10^3/uL (4.4-10.8) 09/30/23 19:03 Red Blood Count 4.13 10^6/uL (3.93-5.22) 09/30/23 19:03 Hemoglobin 12.1 g/dL (11.2-15.7) 09/30/23 19:03 Hematocrit 35.7 % (36.0-46.0) L 09/30/23 19:03 Platelet Count 120 10^3/uL (130-400) L 09/30/23 19:03 Complete Metabolic Panel: 2 Sodium 141 mmol/L (136-145) 09/30/23 19:03 Potassium 3.5 mmol/L (3.5-5.1) 09/30/23 19:03 Chloride 103 mmol/L (98-107) 09/30/23 19:03 Carbon Dioxide 28.9 mmol/L (21.0-32.0) 09/30/23 19:03 BUN 23 mg/dL (7-18) H 09/30/23 19:03 Creatinine 1.1 mg/dL (0.55-1.02) H 09/30/23 19:03 Est GFR (CKD-EPI 2020) 51.43 (mL/min/1.73m2) 09/30/23 19:03 Calcium 8.9 mg/dL (8.5-10.1) 09/30/23 19:03 Albumin 3.6 g/dL (3.4-5.0) 09/30/23 19:03 Glucose 119 mg/dL (74-106) H 09/30/23 19:03 Liver Function Panel: Alanine Aminotransferase (ALT/SGPT) 18 U/L (14-59) 09/30/23 19: 03 Aspartate Amino Transf (AST/SGOT) 14 U/L (15-37) L 09/30/23 19: 03 Coagulation Panel: No Data to Display Cardiac Panel: No Data to Display Arterial Blood Gas: No Data to Display Venous Blood Gas: No Data to Display Pancreas Panel: No Data to Display Thyroid Panel: No Data to Display Infectious Disease: No Data to Display Blood Cultures: No Data to Display Toxicology Panel: No Data to Display Imaging and Studies Imaging and Studies Study information below may be from another EMR and interpreted by another provider. Please see original notes in EMR for more complete details. Other Study Summary:: lumbar spine and c spine imaging reviewed and results in chart Anesthesia Assessment and Plan Anesthesia History Personal History: Delayed Emergence Family History: No Family History of Anesthesia Complications Exercise Tolerance Exercise Tolerance: Metabolic Equivalents>4 Pertinent Negatives Pertinent Negatives: No Symptoms of GERD, No Major Cardiovascular Symptoms or Complaints, No Major Pulmonary Symptoms or Complaints and No History of CVA/TIA Cardiac & Pulmonary Exam Cardiac Exam: Normal S1/S2 Heart Sounds Pulmonary Exam: Clear Bilateral Breath Sounds Implantable Cardiac Device Does patient have a Pacemaker or an ICD?: No Airway Exam Known Difficult Airway: No Mallampati Class: 4 Mouth Opening: Narrow (< 3cm) Thyromental Distance: Less than 3 cm Neck Range of Motion: Full ROM Neck Circumference: Normal Teeth Condition: Normal Dentition ASA Classification ASA Score: ASA 2 Emergency Case?: No NPO Status NPO Status: NPO Clears >2 hours, Solids >8 hours Anesthesia Plan Resuscitation Status: Full Code Anesthesia Technique: Spinal Anesthesia Airway Planned: Natural Airway Pain Management: Surgeon and patient request nerve block Monitors Used: Standard Monitors
--- NOTE | 2023-10-04 08:07 | W.ANESNERVE ---
Nerve Block Single Injection Procedure Date and Time Date Performed: 10/04/23 Procedure Start: 07:43 Location Where Procedure Performed Procedure Location: Day Surgery Unit Reason Performed: Postoperative Analgesia Requesting Provider: Nicholas Vázquez Timeout Performed Timeout Performed: Yes Monitoring Used ECG, Blood Pressure, SpO2 and ETCO2 Sterility Sterility: Hand Hygiene, Surgical Cap, Surgical Mask, Sterile Gloves and Chlorhexidine Sedation Given During Procedure Sedation Given (Indicate Dose Given): No Sedation given Patient Mental Status Patient Mental Status: Awake Nerve Block 1st Nerve Block: Laterality: Left Block Type: Adductor Canal Ultrasound Image Saved?: Yes Needle / Catheter Used: 100mm SonoPlex II Local Anesthetic Bolus (Indicate Dose Given): Lidocaine used for local infiltration of skin, Injected in 3-5ml increments after negative blood aspiration and Bupivacaine 0.25% Dose:: 15mL Additives (Indicate Dose Given): None Ultrasound: Sterile probe cover and gel used Nerve Stimulator: Not Used Paresthesia: None Procedure Tolerated: No Complications and Patient tolerated well Procedure Outcome: Successful Performed By: Chantal Ramirez Supervised By: Miladis Segovia
[2023-10-04] MEDS: ceFAZolin 2 GM/50 ML BAG IVPB (08:26)
--- NOTE | 2023-10-04 09:46 | ROE_ITS ---
Date of service: 10/04/23 Time of Service: 08:45 Operative Note Operative Note DATE OF PROCEDURE: 10/04/23 PRE-OP DIAGNOSIS: Left Knee Osteoarthritis POST-OP DIAGNOSIS: same PROCEDURE: Left Total Knee Replacement SURGEON: Nicholas Vázquez RESTAURANT HOST/HOSTESS: Anthony Johnson ANESTHESIA TYPE: Spinal Refer to Anesthesia Record ESTIMATED BLOOD LOSS: 100 PATHOLOGY: none sent TOURNIQUET TIME: 0 COMPLICATIONS: None Patient was transported to: PACU Patient's condition: stable Implants: 1. Depuy Attune Cementless Cruciate Retaining Femoral Component, Size 4 2. Depuy Attune Cementless Fixed Bearing Tibial Component, Size 3 3. Depuy Attune 4x7 CR/FB Poly 4. Depuy Attune Patellar Component, Size 32 Indications: I have seen Nyla in clinic for symptoms of knee arthritis, confirmed with radiographic findings. She has exhausted nonoperative methods and was having significant limitations in daily function and desired better function and less pain. I discussed the technical details of a knee replacement. I explained the risks of the procedure to include, but not limited to, bleeding, infection, pain, stiffness, fracture, damage to nerves and vessels, damage to muscles and tendons, loosening, need for repeat procedure, blood clot and cardiopulmonary demise. Despite these risks, Nyla elected to proceed. Findings: There was significant signs of arthritis throughout the knee, focused most on the medial side of the knee. Procedure Description: Nyla was greeted in the preoperative holding area where the correct side was identified and marked. The consent was reviewed with the patient and signed. The history and physical was updated. All questions were answered. Preoperative medications were administered: Acetaminophen 1000mg, Celebrex 400mg, and Gabapentin 300mg. An adductor canal block was then administered by the anesthesia team in the PACU. Nyla was taken back to the operating room. A spinal anesthestic was then administered. The patient was placed into the supine position on the operating room table. A nonsterile tourniquet was placed high onto the leg but only used for cementing. Posts were placed for positioning during the procedure. All bony prominences were well padded. Prophylactic antibiotics in the form of Cefazolin were administered. 1g of Tranxemic Acid was given intravenously within 30 minutes of incision. The left leg was then prepped with Chloraprep and draped in a standard fashion with impervious stockinette. A second prep with Chloraprep was performed prior to application of Iodine impregnated skin protection. A timeout to confirm correct identity, side and site, procedure, allergies, anesthesia, and medical concerns was performed. With the knee in some flexion, a midline incision was made overlying the knee. Full thickness skin flaps were raised once the extensor mechanism was encountered. These were raised medially and laterally. Any bleeding was controlled with electrocautery. Once the extensor mechanism was fully exposed, a medial parapatellar arthrotomy was performed in a flexed position. All bleeding from the arthrotomy and the geniculate arteries was coagulated. A medial subperiosteal peel was performed with electrocautery to the midcoronal plane. Due to the significant varus deformity the entire medial tibial plateau was exposed. The fat pad was removed while keeping the patellar tendon protected. The anterior distal femur synovium was removed for later visualization. The ACL and PCL were resected and the anterior horn of the lateral meniscus was transected. The knee was then flexed with the patella everted. Large osteophytes from the tibia were removed. Large osteophytes from the femur were removed. Using a step drill, and based on preoperative templating, the femoral canal was entered. This was done with a step drill without any difficulty. The intramedullary distal femoral cut guide was inserted, set to a 5 degree valgus cut and 9mm cut thickness. The distal femoral cut guide was then held in position and pinned. With the soft tissues protected, the distal cut was performed. This was passed over a few times to ensure a planar cut. I then turned attention to the tibia. The extramedullary guide was placed onto the leg. The distal aspect was slid medial to adjust for position of center of ankle and stay in line with shaft of the tibia. Approximately 3-5 degrees of posterior slope was kept in the proximal cutting guide. The center of the guide was aligned with the PCL. The stylus was used to assess cut thickness. The medial side, most involved side, was set for a 4mm cut. This was then held in position and pinned into place with 2 additional pins and a cross pin for stability. The medial and lateral collateral ligaments were protected and the cut was performed. With this completed, it was assessed and noted to be of appropriate dimensions. The guide was removed. A spacer block was inserted and the knee was brought into extension. The 6mm spacer block provided full extension, without hyperextension and with stability of both the medial and lateral collateral ligaments was assessed. The pins from the femur and the tibia were then removed. The distal femur was then sized. The anterior stylus was placed onto the lateral ridge of the anterior femur. This indicated a size 4 femur. The external rotation of the guide was adjusted to 3 degrees to match the epicondylar axis, perpendicular to Inman?s line. The 4-in-1 cutting guide was the placed. The posterior medial femur cut was evaluated and appeared of good thickness. The spacer block was inserted underneath the cutting guide and stability was confirmed in 90 degrees of flexion. An annemarie wing was used to confirm appropriate position of the anterior cut to avoid notching. This cutting guide was ensured to be flush on the cut surface and then pinned into place with headed pins. While protecting the soft tissues, quad tendon, and collateral ligaments, the anterior and posterior cuts were performed with a saw. The central two pins were removed and the posterior and anterior chamfers were cut next. The notch-cutting guide was placed. This was pinned to lateralize the femoral component as much as possible while keeping it flush on the cut surface. This was then pinned into position. A reciprocating saw was used to make the notch cut. A rasp smoothed the cut surfaces. The medial and lateral menisci were removed. A trial femoral component was then inserted, impacted down to the cut surfaces, and the lug holes were drilled. A provisional trial tibial component was placed and the knee was brought through range of motion. The polyethylene was trialed until there was good flexion and extension with excellent stability to the medial and lateral collaterals. The patella was tracking without thumbs. A size 7mm polyethylene component provided the best range of motion and stability with less than 2mm gapping with medial and lateral stress and full extension without significant hyperextension. The tibial cut surface was fully exposed. The tibia was then sized as a 3. The tibia had been previously marked during trialing to correspond to the center of the tibial component to help with rotation. The trial was aligned to this anthony, approximately rotated to the medial 1/3rd of the tibial tubercle. The trial was pinned into place. The tibia was prepared with a reamer and a keel punch and lug holes. The knee was then brought into extension and the patella was measured as 24mm. Using the patellar clamp and cut guide, this was resected to a flat surface with at least 13mm of thickness remaining. The size 32 patella fit the best. This was oriented and then clamped into position. The lugs were drilled. The trial components were removed. The final components were opened on the back table. The periosteal and capsular tissues, especially posteriorly, around the knee were then systematically injected with a periarticular cocktail consisting of 246mg of Ropivacaine, 0.5mg of Epinephrine, 0.08mg of Clonidine, and 30mg of Ketorolac, diluted to 100cc. On the back table, with the implants opened, the cement was mixed. One batch of high viscosity cement was prepared with vacuum assistance. After the cement was ready a small amount was placed on the cut surface of the patella and the patellar button was clamped into position and held. While the cement was hardening, the cementless knee components were placed. Starting with the tibial component, the tibia was subluxed anteriorly and the lug holes of the component were lined up. The tibia was then impacted with an impactor and mallet until the tibial component was in contact with the tibia. The final polyethylene component was inserted. Then, the femoral component was inserted. The lug holes were aligned and the component was impacted into position. The knee was irrigated with Surgiphor Betadine solution. This was allowed to sit in the knee for 3 minutes and then it was irrigated out with saline. After the cement had finally cured, approximately 15min, the clamp was removed from the patella and the knee was taken through range of motion. The patella was tracking with a no-thumbs technique. The capsule was then reapproximated with a No. 1 Vicryl at multiple locations. The capsule was finally closed with a No. 2 Stratafix, barbed suture. The second dosing of 1g TXA was started. Deep tissues were then reapproximated with 0 Vicryl and 2-0 Vicryl. The skin was closed with a running 3-0 Monocryl in a subcuticular fashion. This was reinforced with skin glue. A Mepilex silver dressing was applied along with a [id number]-udisy CARLITO wrap. A CryoCuff was applied. Nyla was transferred to the hospital bed without difficulty an suffering no apparent complication. Nyla has a good prognosis. Physical therapy will start today and without restrictions, weight-bearing as tolerated. Aspirin 81mg BID will be used for DVT prophylaxis.
[2023-10-04] MEDS: fentaNYL 100 MCG/2 ML VIAL IVP (10:23)
[2023-10-04] MEDS: Droperidol 5 MG/2 ML VIAL 0.625 MG IVP ×2 (11:56→12:26)
[2023-10-04] MEDS: Normal Saline Flush 10 ML SYR IV ×2 (11:57→12:27)
--- NOTE | 2023-10-04 13:20 | W.ANESPOSTOP ---
Postoperative Evaluation Date, Time and Location Date Performed: 10/04/23 Time Performed: 13:20 Patient Location: Day Surgery Unit Vital Signs Most Recent Imported Vital Signs: Most Recent Vital Signs Temp Pulse Resp BP Pulse Ox 36 C L 66 16 160/55 H 99 10/04/23 12:20 10/04/23 12:20 10/04/23 12:20 10/04/23 12:20 10/04/23 12:20 Pain Score Most Recent Pain Score: Most Recent Pain Score Pain Level 4 10/04/23 12:20 Assessment Mental Status: Awake (Alert & Oriented to Patient Baseline) Airway and Respiratory Function: Patent airway with normal (patient baseline) respiratory exam Cardiovascular Function: Hemodynamically Stable Hydration Status: Adequately Hydrated Nausea & Vomiting: No Nausea or Vomiting Pain: Pt. Denies Any Pain Peripheral Nerve Block: Regional nerve block not resolved at time of post operative discharge
--- NOTE | 2023-10-04 13:23 | PT.INIE ---
PT Notes Visit Reasons: L TKR Physical Therapy Day Surgery Initial Evaluation Date: 10/04/2023 Referring Doctor: REY Gross PT Orders: PT CONSULT: S/P Ortho Surgery Precautions: WBAT on the L LE with AD. Patient Profile/Admitting Diagnosis: Nyla is a 78-year-old female with primary osteoarthritis of the left knee and status post left total knee arthroplasty on postoperative day 0. PMHX: Medical History (Updated 06/06/23 @ 08:14 by Suzanne Bunn MD, [place]) Skin change URI (upper respiratory infection) Ganglion cyst of volar aspect of right wrist Medial epicondylitis of right elbow (04/18/17) Neck pain Stress due to illness of family member (05/24/16) pulmonary hypertension Depressive disorder GERD (gastroesophageal reflux disease) Hypothyroidism ASHLEIGH (obstructive sleep apnea) Surgical History History of appendectomy History of hand surgery Replacement of total knee joint RIGHTKNEE REPAIR (~2011) TORN MINISCUS Hysterectomy, Laproscopic TOTAL; AGE 33.Colonoscopy - MAC (11/28/17) Social History/Home Situation: Will have daughter Tommy and son available to help patient as she recovers home. Independent with all aspects of ADLs prior to surgery although has had worsening difficulty with mobility ADL performance due to progressive arthritis.. Still drives. Equipment Owned/DME: [facility] Subjective: Reported worsening dizziness and wooziness with sitting upright, standing up and walking. Complained of having a hard time focusing with her eyes. Denied chst pain. decided along with Nurse Earl to defer further ambulation activity until after patient has rested some more. Objective: General Observation: Somewhat drowsy, could not focus and stay safe during the start of walking. CARLITO wraps to L LE. Cryocuff to L knee. Daughter Tommy present in room throughput. Mental Status: A and O x Pain: 3-4/10 on the L knee with exercise and walking ROM: Right Lower Extremity: Hip flexion WFL. Hip abduction WFL. Knee flexion WFL. Ankle dorsiflexion WFL. Ankle plantarflexion WFL. Left Lower Extremity: Hip flexion WFL. Hip abduction WFL. Knee [id number] degrees to 100 degrees actively. Knee extension -10 degrees. Ankle dorsiflexion WFL. Ankle plantarflexion WFL. Strength: Right Lower Extremity: Hip flexors 5/5. Hip abductors 5/5. Knee flexors 5/5. Knee extensors 5/5. Ankle dorsiflexors 5/5. Ankle plantarflexors 5/5. Left Lower Extremity:Hip flexors 5/5. Hip abductors 5/5. Knee flexors 5/5. Knee extensors 5/5. Ankle dorsiflexors 5/5. Ankle plantarflexors 5/5. Sensation: Intact as to pain and light pressure in B LE Bed Mobility/Transfers: Minimal cueing provided for use of B hands as needed for support, movement sequence, AD management, and posture to reduce fall risk and minimize pain report Sit to stand contact-guard assist with FWW Stand to sit contact-guard assist with FWW Gait: Facilitated safe and correct performance of short distance ambulation covering about 30 feet using front wheeled walker with contact-guard assist and wheelchair follow of nurse Nicolle before patient complained of worsening wooziness and inability to focus. Decided with nurse Valverde to defer further ambulation activity due to worsening symptoms. Stairs: Balance: Static Sitting: Normal Dynamic Sitting: Good Static Standing: Fair Dynamic Standing: Fair Special Tests: Mobility Limitations Standardized Measure [facility] AM-PAC 6 clicks Basic Mobility Inpatient Short Form: Raw Score: 18 CMS Score: 47% deficit Informed Consent/Education: Patient instructed in purpose of PT consult. Packet containing TKA exercise protocol has been given to patient. Education and training on initial set of exercises that can be done at home have been completed with patient. Trained patient with correct performance of exercises below to maximize motor control, joint flexibility, soft tissue extensibility of the L knee musculature: Access Code: [email or web address] URL: [email or web address] Date: 10/04/2023 Prepared by: Vernell Mina Exercises - Supine Quad Set - 1 x daily - 7 x weekly - 1 sets - 10 reps - 5 hold - Supine Heel Slide - 1 x daily - 7 x weekly - 1 sets - 10 reps - 5 hold - Supine Ankle Pumps - 1 x daily - 7 x weekly - 1 sets - 10 reps - 5 hold - Small Range Straight Leg Raise - 1 x daily - 7 x weekly - 1 sets - 10 reps - 5 hold - Seated September - 1 x daily - 7 x weekly - 1 sets - 10 reps - 5 hold Assessment: Deferred further mobility assessment after worsening symptoms of of lightheadedness and nausea with BP at 187/96 mmHg. Patient came back to [facility] from PACU post surgery with BP at 153/55 mmHg. Patient will be seen a second time once she re-stabilizes and her symptoms kana. Patient presents with clinical signs and symptoms consistent with current/admitting diagnoses that have resulted to mobility limitations, gait instability, generalized weakness, and impairment of motor control as demonstrated by the following impairment level findings: 1. Decreased strength to left knee major muscle groups 2. Impaired standing balance 3. Limitation of joint range of motion in left knee Impairments are contributing to the following functional limitations: 1. Inability to safely ambulate without assistive device 2. Increase completion time for mobility ADL performance 3. Increased fall risk Patient is assessed as a 66706 moderate complexity based on the following: History: 78-year-old female with impairment level findings, functional limitations, and past medical history as indicated above Examination: Demonstrable impairment in strength, balance, and mobility level with underlying impairments and functional limitations as documented above Presentation: Evolving Decision Makin moderate complexity Goals: N/A. PT evaluation and 1-2 treatment sessions only for functional mobility training using recommended AD and for HEP instruction. Plan of Care/Treatment Plan: N/A. PT evaluation and 1-2 treatment session only for functional mobility training using recommended AD and for HEP instruction. DISCHARGE RECOMMENDATIONS: Home when medically cleared by orthopedic surgeon. Recommend outpatient PT services in order to optimize functional mobility outcomes and facilitate return to independent community ambulation without an assistive device. TREATMENT CODE/TIME: 36261 x 18 minutes for 1 unit Thank you for the opportunity to participate in the care of this patient. Please sign an return this page within 30 days if you agree with the above POC. Thank you! Physician Signature Date [facility] Thank you for the opportunity to participate in the care of this patient. Vernell Mina PT, DPT, CLT [facility], [place]
[2023-10-04] MEDS: ceFAZolin 1 GM/50 ML BAG IVPB (16:58)
[2023-10-04] MEDS: Enoxaparin 40 MG/0.4 ML SYR SC (20:00)
[2023-10-04] MEDS: Celecoxib 200 MG CAP PO (20:00)
[2023-10-05] MEDS: ceFAZolin 1 GM/50 ML BAG IVPB ×2 (01:18→08:22)
[2023-10-05] MEDS: traMADol 50 MG TAB PO ×2 (02:18→09:47)
[2023-10-05] MEDS: Acetaminophen 500 MG TAB 1000 MG PO (02:18)
[2023-10-05 04:23] VITALS: BP 144/77; PULSE 70; RESP 16; TEMP 36.2; O2SAT 99
[2023-10-05] MEDS: Levothyroxine 50 MCG TAB PO (06:16)
--- NOTE | 2023-10-05 07:52 | PDOC.DSDIS_ITS ---
Date of service: 10/05/23 Time of Service: 07:50 Discharge Plan Disposition Patient Disposition: Home Condition: Good Discharge Details Reason For Visit: L TKR Admit Date/Time: 10/04/23 15:38 Admit Provider: Nicholas Vázquez Attending Provider: Nicholas Vázquez Primary Care Provider: Suzanne Bunn [facility] Course Hospital Course: Nyla was initially transferred to the day surgery unit following her knee replacement surgery. The surgery staff was completed without difficulty. However, she had persistent nausea, sedation, and some resting hypoxemia. Therefore, she was admitted to the medical/surgical floor for further observation. She was watched overnight and showed signs of improvement throughout the night and was able to mobilize within the room to use a bathroom. She was voiding spontaneously. Vitals were stable. Physical therapy worked with the patient and was cleared for discharge home. No acute medical issues. Pain was controlled on oral regimen. Home Meds and New Rx's Prescriptions: New acetaminophen 500 mg tablet 1,000 mg PO TID Qty: 90 3RF aspirin 81 mg tablet,delayed release (DR/EC) 81 mg PO BID Qty: 60 0RF celecoxib 200 mg capsule 200 mg PO BID Qty: 60 0RF dexamethasone 4 mg tablet 4 mg PO DAILY Qty: 2 0RF gabapentin 300 mg capsule 300 mg PO QHS Qty: 14 0RF tramadol 50 mg tablet 50 mg PO Q4H PRNQty: 20 0RF Continued mometasone 0.1 % solution 1 applic topical DAILY PRN (Reason: skin irritation) Qty: 60 5RF lorazepam 0.5 mg tablet 0.5 mg PO DAILY PRN (Reason: anxiety) Qty: 5 0RF cholecalciferol (vitamin D3) 50 mcg (2,000 unit) capsule 50 mcg PO DAILY estradiol 0.01 % (0.1 mg/gram) cream 1 g vaginal .twice weekly Qty: 42.5 5RF betamethasone dipropionate 15 GM ointment 2 - 5 gm Topical BID PRNQty: 45 Rx Instructions: DISPENSE CREAM NOT OINTMENT. dispense 45gm tube. Apply to arms and legs mometasone 0.1 % cream 1 applic TP DAILY Qty: 50 4RF bupropion HCl 150 mg tablet sustained-release 12 hr 150 mg PO QAM Qty: 90 5RF levothyroxine 50 mcg tablet 50 mcg PO DAILY Qty: 90 3RF pantoprazole 40 mg tablet,delayed release (DR/EC) 40 mg PO DAILY PRN (Reason: GERD) Qty: 90 4RF hydrochlorothiazide 12.5 mg tablet 12.5 mg PO QAM Qty: 90 3RF losartan 100 mg tablet 100 mg PO DAILY Qty: 90 12RF Discharge Instructions Additional Instructions: Total Knee Discharge Instructions Activity: The most important activity is to walk and to work on gentle motion (both flexion and extension). You should try to take short walks a few times a day. It is important that when resting you work on keeping the knee straight. Avoid putting a pillow behind the knee as this will encourage flexion. Work on range of motion exercises as provided by Physical Therapy. - Start outpatient physical therapy within 2 weeks. - You should wear the YOBANI hose on both legs for 2 weeks. You may remove these at night. You may also use any compression sock in place of the YOBANI hose. - Utilize [employer] to review exercises, see videos on exercises and obtain basic information pertaining to your surgery and your recovery. Dressing: Remove the Panfilo wrap by 2 days after your surgery and put on the YOBANI stocking given to you from the hospital. Keep the surgical dressing (underneath the PANFILO wrap) in place for at least one week. After the first week it may be removed and replaced with light gauze and tape or nothing. The wound and dressing may get wet after 3 days but avoid soaking the dressing or otherwise it will need to be changed. Many people prefer covering the dressing with cling wrap (saran wrap) to minimize it from getting soaked. If it gets wet, just pat dry. If it starts to peel off then it will need to be changed. Medications: - You should take Tylenol and anti-inflammatory Celebrex as your primary pain control medications. If the Celebrex is too expensive or not covered, please call the office for another alternative (Advil/Ibuprofen or Naproxen/Aleve) - You have been prescribed a stronger pain medication Tramadol for breakthrough pain, take as needed as prescribed. - You have also been prescribed a stomach acid reduction agent Pantoprozole to help reduce stomach acid and reflux. - You have been prescribed Gabapentin to take at night for restlessness and nerve pain. - You will be taking Aspirin 81mg twice a day for DVT prevention unless instructed otherwise. - You have also been prescribed Decadron to take to control post-operative nausea and pain. You will start this tomorrow. - If you have constipation you should take Colace or Miralax (both [id number]). It takes most people 3-4 days to have a bowel movement. Follow-up: 2 weeks If you have any acute concerns or questions, please do not hesitate to contact the office at [phone]. You may contact Dr. Vázquez with any questions after hours through the hospital at [phone] or on his cell phone at [phone]. Stand Alone Forms: Anesthesia Discharge Inst., Rebecca.Nerve Block Instructions, Kelechi Barajas ([facility]) Referrals: Marquita Edmonds MPT [[facility]] - 10/18/23 10:00 am Nicholas Vázquez MD [ [facility] STAFF PHYSICIAN] - 10/19/23 11:00 am Activity:: Activity as Tolerated Equipment/Supplies:: Walker Diet:: As Tolerated Discharge Orders Discharge Orders: Discharge Order (Routine); Ordered 10/05/23 Ordered By: Nicholas Vázquez DS: Diagnosis Discharge Diagnosis (1) Primary osteoarthritis of left knee: Status: Acute Exam Const Other: Resting comfortably in the chair. No acute distress. Alert and x 3. Appears much better today than she did yesterday evening. Evaluation of the left lower extremity shows a clean dry and intact dressing. She is able straight leg raise without a lag. She has intact ankle dorsif lexion, plantarflexion, great toe extension and flexion. Sensation intact to light touch over the deep and superficial peroneal nerve and tibial nerve.
[2023-10-05 08:15] VITALS: O2SAT 95
[2023-10-05] MEDS: Cholecalciferol (Vitamin D3) 1,000 UNIT TAB 2000 UNITS PO (08:21)
[2023-10-05] MEDS: hydroCHLOROthiazide 12.5 MG TAB PO (08:21)
[2023-10-05] MEDS: Losartan 50 MG TAB 100 MG PO (08:21)
[2023-10-05] MEDS: Tranexamic Acid 650 MG TAB 1300 MG PO (08:21)
[2023-10-05] MEDS: buPROPion-CR 150 MG TABCR PO (08:22)
[2023-10-05] MEDS: Celecoxib 200 MG CAP PO (08:22)
[2023-10-05] MEDS: Dexamethasone 4 MG TAB PO (08:22)
[2023-10-05] MEDS: Pantoprazole 40 MG TABCR PO (09:47)
--- NOTE | 2023-10-05 10:02 | PTTR_ITS ---
PT Notes Visit Reasons: L TKR Physical Therapy Day Surgery Initial Evaluation Date: 10/05/2023 Precautions: WBAT on the L LE with AD. Patient Profile/Admitting Diagnosis: Nyla is a 78-year-old female with primary osteoarthritis of the left knee and status post left total knee arthroplasty on postoperative day 1. Subjective: Symptoms of wooziness/lightheadedness resolved. Patient back to baseline alertness level. Reported 1-2/10 pain in the L knee with weight-bearing. Objective: General Observation: CARLITO wraps to L LE. Cryocuff to L knee. Resting in bed. Mental Status: A and O x 4 Pain: As above ROM: Right Lower Extremity: Hip flexion WFL. Hip abduction WFL. Knee flexion WFL. Ankle dorsiflexion WFL. Ankle plantarflexion WFL. Left Lower Extremity: Hip flexion WFL. Hip abduction WFL. Knee flexion 10 degrees to 100 degrees actively. Knee extension -10 degrees. Ankle dorsiflexion WFL. Ankle plantarflexion WFL. Strength: Right Lower Extremity: Hip flexors 5/5. Hip abductors 5/5. Knee flexors 5/5. Knee extensors 5/5. Ankle dorsiflexors 5/5. Ankle plantarflexors 5/5. Left Lower Extremity:Hip flexors 5/5. Hip abductors 5/5. Knee flexors 5/5. Knee extensors 5/5. Ankle dorsiflexors 5/5. Ankle plantarflexors 5/5. Sensation: Intact as to pain and light pressure in B LE Bed Mobility/Transfers: Minimal cueing provided for use of B hands as needed for support, movement sequence, AD management, and posture to reduce fall risk and minimize pain report Sit to stand stand by assist with FWW Stand to sit stand by assist with FWW Gait: Facilitated safe and correct performance of short distance ambulation covering about 150 feet using front-wheeled walker with stand by assist without any symptoms. Step through reciprocal heel-toe gait pattern. Stairs: Requested REDYE HAND Rickey to continue session on stairs and with level surface ambulation THERA EX: Trained patient with correct performance of exercises below to maximize motor control, joint flexibility, soft tissue extensibility of the L knee musculature: Access Code: [email or web address] URL: [email or web address] Date: 10/05/2023 Prepared by: Vernell Mina Exercises - Supine Quad Set - 1 x daily - 7 x weekly - 1 sets - 10 reps - 5 hold - Supine Heel Slide - 1 x daily - 7 x weekly - 1 sets - 10 reps - 5 hold - Supine Ankle Pumps - 1 x daily - 7 x weekly - 1 sets - 10 reps - 5 hold - Small Range Straight Leg Raise - 1 x daily - 7 x weekly - 1 sets - 10 reps - 5 hold - Seated March - 1 x daily - 7 x weekly - 1 sets - 10 reps - 5 hold Assessment: (See notes of SOHA Lang for conitnuation of session with patient). Patient requires use of front wheeled walker for mobility ADL performance to maximize independence and reduce fall risk. Patient presents with clinical signs and symptoms consistent with current/admitting diagnoses that have resulted to mobility limitations, gait instability, generalized weakness, and impairment of motor control as demonstrated by the following impairment level findings: 1. Decreased strength to left knee major muscle groups 2. Impaired standing balance 3. Limitation of joint range of motion in left knee Impairments are contributing to the following functional limitations: 1. Inability to safely ambulate without assistive device 2. Increase completion time for mobility ADL performance 3. Increased fall risk Patient is assessed as a 37424 moderate complexity based on the following: History: 78-year-old female with impairment level findings, functional limitations, and past medical history as indicated above Examination: Demonstrable impairment in strength, balance, and mobility level with underlying impairments and functional limitations as documented above Presentation: Evolving Decision Makin moderate complexity Goals: N/A. PT evaluation and 1-2 treatment sessions only for functional mobility training using recommended AD and for HEP instruction. Plan of Care/Treatment Plan: N/A. PT evaluation and 1-2 treatment session only for functional mobility training using recommended AD and for HEP instruction. DISCHARGE RECOMMENDATIONS: Home when medically cleared by orthopedic surgeon. Recommend outpatient PT services in order to optimize functional mobility outcomes and facilitate return to independent community ambulation without an assistive device. TREATMENT CODE/TIME: 82466 x 13 minutes for 1 unit (10:02-10:15).
--- NOTE | 2023-10-05 10:27 | PT.INTREAT ---
PT Notes Visit Reasons: L TKR Date: 10/05/2023 PRECAUTIONS: WBAT on the L LE with AD. SUBJECTIVE: Pt reports she is looking forward to going home today, This therapist took over supervising PT after doing exercises and Transfers training. OBJECTIVE: ? PAIN: very manageable, has been taking keds for pain on time. Therapeutic Activities 14877x: Direct one-on-one instruction in dynamic activities to improve functional performance. ?? Gait Training [id number] 20mins: Direct one-on-one instruction and skilled instruction in: Employing an assistive device Modified weight-bearing status Movement sequencing Turning and movement with proper form Provided verbal cues for equipment management and techniqu Provided instruction in gait pattern Patient education regarding pacing and breathing techniques to maximize activity tolerance? GAIT? Assistive Device: FWW? Weight bearing: WBAT Assist: ?SBA ? Distance:??150' ? Deviation: ? Antalgic gait? STAIRS:? 1 Handrail on the left step to gait pattern 2steps up/2 steps down with pt taking a seatedrset break after stair negotiation training? ASSESSMENT:?PT able to go back in bed, independent with return transfer, pt setup for cryocuff and intermittent pneumatic compression machine to help prevent DVT. PLAN: Home when medically cleared by orthopedic surgeon. Recommend outpatient PT services in order to optimize functional mobility outcomes and facilitate return to independent community ambulation without an assistive device. TREATMENT CODE/TIME: [id number] 20mins ( 10:15-10:35 am)
[2023-10-05 11:03] VITALS: BP 132/83; PULSE 73; RESP 16; TEMP 36.3; O2SAT 94
--- NOTE | 2023-10-05 11:48 | CHAPLAIN ---
Nyla was resting in bed when I visited. She had knee surgery yesterday and expects to be discharged today. She had surgery on her other knee 11 years ago, so she said she knows what to expect but some things have changed.
== END 2023-10-05 13:17 | disposition home or self-care (01) ==
LOC: SUR 07:15 → MS 10-05 07:31 → SUR 10-06 09:08 → MS 10-06 09:10 → SUR 10-06 09:12 → MS 10-06 09:12
PROVIDERS: Admitting Provider Student in an Organized Health Care Education/Training Program; PCP Family Medicine; Visit Provider Student in an Organized Health Care Education/Training Program
PROC: (CPT 27447; principal; 2023-10-04 08:15)
DX: M17.12 Unilateral primary osteoarthritis, left knee (principal); M53.3 Sacrococcygeal disorders, not elsewhere classified; M54.50 Low back pain, unspecified; I10 Essential (primary) hypertension; E55.9 Vitamin D deficiency, unspecified; L40.9 Psoriasis, unspecified; M85.80 Other specified disorders of bone density and structure, unspecified site; E78.5 Hyperlipidemia, unspecified; E03.9 Hypothyroidism, unspecified; K21.9 Gastro-esophageal reflux disease without esophagitis; Z86.711 Personal history of pulmonary embolism; Z79.82 Long term (current) use of aspirin
CPT/HCPCS: 27447; C1776; 76942; 97162; 97530; J1650; G0378; J0665; J0690; J1100; J1790; J2001; J2250; J2371; J2401; J2405; J2704; J3010; J8540

== ENCOUNTER → 2023-10-13 10:56 | Outpatient (CLI) | payer MEDICARE, SELFPAY ==
--- NOTE | 2023-10-13 10:45 | DI.US_ITS ---
Exam(s) US LOWER EXTREMITY VENOUS LT EXAM: US LOWER EXTREMITY VENOUS LT CLINICAL HISTORY: LEFT CALF PAIN S/P L TKA, M79.662. TECHNIQUE: Lower extremity venous ultrasound performed using grayscale, color-flow, and spectral Do ppler analysis. COMPARISON: US POCUS EXAM from 10/04/2023 FINDINGS: The common femoral, femoral and popliteal veins demonstrate normal compressibility, augmentation, and color Doppler.There is partial compressibility of the mid posterior tibial vein over 2-3 centimeter length. Findings could represent partially occlusive acute thrombus versus chronic finding. No saph enous vein thrombosis or other superficial venous thrombosis is seen. No hematoma or Martines's cyst is seen. IMPRESSION: Question partially occlusive thrombus in the mid posterior tibial vein DATA REPOSITORY:
== END ==
PROVIDERS: PCP Family Medicine; Visit Provider Physician Assistant
DX: Z47.1 Aftercare following joint replacement surgery (principal); Z96.653 Presence of artificial knee joint, bilateral; M79.662 Pain in left lower leg
CPT/HCPCS: 93971

== ENCOUNTER 2023-10-19 11:56 | Outpatient (CLI) | payer MEDICARE, SELFPAY ==
--- NOTE | 2023-10-19 10:45 | DI.RAD_ITS ---
Exam(s) XR KNEE LT 1V XR STANDING ALIGNMENT EXAM: XR STANDING ALIGNMENT CLINICAL HISTORY: 1ST POST OP S/P L TKA. TECHNIQUE: 2D digital imaging was performed. Standing AP views were performed from the pelvis throu gh the ankles. COMPARISON: CR XR STANDING ALIGNMENT from 09/18/2023 CR XR KNEE LT 1V from 10/19/2023 FINDINGS: BONES: No acute fracture is present. No bony destructive lesion is seen. Leg length discrepancy: Mild lower lobe all leg length discrepancy with the right femoral head projec ting superior to the left, similar to prior. JOINTS: Knees: Bilateral total knee prostheses are unremarkable. The ankle joints are unremarkable. The hip joints are unremarkable. SOFT TISSUE: Normal. IMPRESSION: Bilateral knee prostheses.. Mild leg length discrepancy. DATA REPOSITORY: RADIATION DOSE DELIVERED:
== END 2023-10-19 11:57 | disposition home or self-care (01) ==
LOC: DIORS 11:57
PROVIDERS: PCP Family Medicine; Visit Provider Student in an Organized Health Care Education/Training Program
DX: Z96.652 Presence of left artificial knee joint (principal); Z47.1 Aftercare following joint replacement surgery
CPT/HCPCS: 73560; 77073

== ENCOUNTER → 2023-11-16 10:58 | Outpatient (BNVA) | payer MEDICARE, SELFPAY | PROVIDERS: PCP Family Medicine; Visit Provider Student in an Organized Health Care Education/Training Program | DX: Z47.1 Aftercare following joint replacement surgery (principal); Z96.652 Presence of left artificial knee joint ==

== ENCOUNTER 2023-11-29 10:45 | Day surgery (SDC) | payer MEDICARE, SELFPAY ==
--- NOTE | 2023-11-29 07:16 | W.PREOPHP ---
Assessment and Plan Assessment and plan (1) Arthrofibrosis of total knee arthroplasty: Status: Acute Assessment and plan: Nyla is a 78-year-old active female who unfortunately continues have some stiffness about her left knee after knee replacement. Given the lack of progress over the past few weeks and restriction in range of motion, particular flexion, I offered manipulation under anesthesia. I discussed the risk of the procedure to include bleeding within the joint, continued stiffness, fracture, pain. Despite these risk, she elects to proceed. History of Present Illness Narrative: Nyla is a 78-year-old female who presents today for her left knee. She is status post left knee replacement approximate 2 months ago. She has struggled with her range of motion. She has been able to make some progress initially but really feels that she has plateaued. I saw her previously with maximum flexion of about 100 to 105 degrees. She feels none of that has changed and therefore would like to move forward with a manipulation under anesthesia. I did review this with her previously in the office. She denies any new changes to her symptom profile. No new chest pain or shortness of breath. Review of Systems All systems reviewed & are unremarkable except as noted in HPI and below PFSH All Active Problems Arthrofibrosis of total knee arthroplasty (Acute) History of total left knee replacement (Acute 10/04/23) Vaginitis (Acute) Sacroiliac dysfunction (Acute) Tendinitis of right quadriceps tendon (Acute) Pes anserinus bursitis of left knee (Acute) Lumbar radiculopathy (Acute) Shoulder pain (Acute) Vertigo (Acute) Hypertension (Chronic) Tick bite of axillary region (Acute) Cough (Acute) Wrist pain (Acute) Chronic thumb pain (Acute) Sensorineural hearing loss of both ears (Acute) Decreased hearing (Acute) Arthralgia (Acute) Right leg pain (Acute) Left hip pain (Acute) Grief (Acute) Vitamin D deficiency (Chronic 07/08/11) Tubular adenoma (Chronic 11/28/17) Seborrheic keratosis (Chronic 04/18/17) RUQ abdominal pain (Chronic 06/19/17) Psoriasis (Chronic 01/18/18) Osteopenia (Chronic) DEXA 03: -1.3/-0.3/-0.1; DEXA 05: -1.8/-0.9/-1.1 Obstructive sleep apnea syndrome (Chronic) Sleep study showed moderate obstructive sleep apnea w/ some desaturation; no CPAP due to claustrophobia Neck pain (Chronic) DECREASED L BICEPS JERK; C5-6 NARROWING Medial epicondylitis of right elbow (Chronic 04/18/17) Knee pain (Chronic) PES ANSERINE BURSITIS; S/P TKR Joint pain (Chronic 04/29/12) HAND Irritable colon (Chronic) RECURRENT ABD PAIN; NEG GB Impaired fasting glucose (Chronic 07/04/11) Hypothyroidism (Chronic) CHRONIC THYROIDITIS, S/P BX '97 Hyperlipidemia (Chronic) LIPITOR RX Gastroesophageal reflux disease with esophagitis (Chronic) 97 GIRISH TEST POS; 07 EGD: GERD, NEG H. 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 Medical History Skin change URI (upper respiratory infection) Ganglion cyst of volar aspect of right wrist Medial epicondylitis of right elbow (04/18/17) Neck pain Stress due to illness of family member (05/24/16) pulmonary hypertension Depressive disorder GERD (gastroesophageal reflux disease) Hypothyroidism ASHLEIGH (obstructive sleep apnea) Surgical History History of appendectomy History of hand surgery Replacement of total knee joint RIGHT KNEE REPAIR (~2011) TORN MINISCUS Hysterectomy, Laproscopic TOTAL; AGE 33. Colonoscopy - MAC (11/28/17) Family History Mother , 83 COPD (chronic obstructive pulmonary disease) Father , 65 Lung cancer Brain cancer Brother Psoriasis Maternal Grandfather No problems noted. Paternal Grandfather MS (multiple sclerosis) Maternal Grandmother Diabetes Paternal Grandmother Diabetes Son Essential hypertension Anxiety Hyperlipidemia Daughter Thyroid cancer Brother No problems noted. Social History Smoking/Tobacco Use Status: Never Second Hand Exposure: Yes Smoking risk assessment performed?: Yes Alcohol Intake: current Alcohol Intake frequency: holidays/special occasions only Alcohol type: wine Drug use: Never Substance use type: does not use Counseling given: No Counseling provided: none Caregiver/Support person: No Household members: none Housing: house Communication Needs: None Do you need help understanding health information?: Never Pets and animals: Yes Pets and animals: cat(s) Sexually active: No Do you think of yourself as: straight/heterosexual Current gender identity: female What is your relationship status?: How often do you talk on the phone with friends or family?: three or more times per week How often do you get together with friends or relatives?: three or more times per week How often do you attend hindu or nondenominational services?: decline to answer Do you belong to any clubs or organized social groups?: yes Panel score (0-1 are the most socially isolated patients): 2 What type of physical activity do you participate in: aerobic Duration: < 15 minutes/day Frequency: 3-4 times per week Claudia/Yazidism: Yarsani Special claudia needs: No Seatbelt use: always Helmet use: No Drive 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05 % 2 - 5 gm topical BID PRN #45 grams 10/30/17 11/29/23 History topical ointment mometasone 0.1 % topical cream 1 applic topical DAILY #50 grams 10/15/18 11/29/23 Rx cholecalciferol (vitamin D3) 50 50 mcg PO DAILY 11/29/21 11/29/23 History mcg (2,000 unit) capsule mometasone 0.1 % topical solution 1 applic topical DAILY PRN skin 12/29/22 11/28/23 Rx irritation #60 mL levothyroxine 50 mcg tablet 50 mcg PO DAILY #90 tab-caps 04/17/23 11/29/23 Rx hydrochlorothiazide 12.5 mg tablet 12.5 mg PO QAM #90 tabs 05/10/23 11/29/23 Rx pantoprazole 40 mg tablet,delayed 40 mg PO DAILY PRN GERD #90 05/10/23 11/29/23 Rx release tab-caps estradiol 0.01% (0.1 mg/gram) 1 g vaginal .twice weekly #42.5 06/06/23 11/28/23 Rx vaginal cream grams losartan 100 mg tablet 100 mg PO DAILY #90 tab-caps 06/28/23 11/29/23 Rx lorazepam 0.5 mg tablet 0.5 mg PO DAILY PRN anxiety #5 tabs 09/14/23 11/28/23 Rx acetaminophen 500 mg tablet 1,000 mg (2 x 500 mg) PO TID #90 10/04/23 11/29/23 Rx tabs aspirin 81 mg tablet,delayed 81 mg PO BID #60 tabs 10/04/23 11/29/23 Rx release celecoxib 200 mg capsule (Celebrex) 200 mg PO BID #60 caps 11/22/23 11/29/23 Rx bupropion HCl 150 mg tablet,12 hr 150 mg PO QAM #90 tabs 11/23/23 11/29/23 Rx sustained-release Exam Resp Effort & Inspection: normal respiratory effort Auscultation: clear to auscultation bilaterally Cardio Rate: regular rate Rhythm: regular rhythm
[2023-11-29 10:59] VITALS: BP 168/89; PULSE 89; RESP 16; TEMP 36.6; O2SAT 95
[2023-11-29 11:15] VITALS: BP 170/68
[2023-11-29] MEDS: Celecoxib 200 MG CAP 400 MG PO (11:23)
[2023-11-29] MEDS: Lactated Ringers 1,000 ML 80 ML IV (11:27)
--- NOTE | 2023-11-29 11:30 | W.ANESPRE ---
General Info Date of Service Date Performed: 11/29/23 Height: 5 ft 2 in Weight: 60.3 kg Body Mass Index (BMI): 24.3 Surgical Procedure: Operation Date: 11/29/23 13:25 Proposed Procedure Side Surgeon p Knee Manipulation of Knee Left Nicholas Vázquez MD Meds Allergies and Home Medications Allergies Allergy/AdvReac Type Severity Reaction Status Date / Time neomycin Allergy Unknown Other (See Verified 11/29/23 10:58 Comment) piperazine Allergy Unknown Hives Verified 11/29/23 10:58 Opioids - Morphine Analogues AdvReac Severe Psychosis Verified 11/29/23 10:58 Jnprlyr-IUY-GeE Reductase AdvReac Mild MUSCLE PAIN Verified 11/29/23 10:58 Inhibitor [Mjpoadg-Uad-Kgw Reductase Inhibitor] Home Medication Medication Instructions Recorded betamethasone dipropionate 0.05 % 2 - 5 gm topical BID PRN #45 grams 10/30/17 topical ointment mometasone 0.1 % topical cream 1 applic topical DAILY #50 grams 10/15/18 cholecalciferol (vitamin D3) 50 50 mcg PO DAILY 11/29/21 mcg (2,000 unit) capsule mometasone 0.1 % topical solution 1 applic topical DAILY PRN skin 12/29/22 irritation #60 mL levothyroxine 50 mcg tablet 50 mcg PO DAILY #90 tab-caps 04/17/23 hydrochlorothiazide 12.5 mg tablet 12.5 mg PO QAM #90 tabs 05/10/23 pantoprazole 40 mg tablet,delayed 40 mg PO DAILY PRN GERD #90 05/10/23 release tab-caps estradiol 0.01% (0.1 mg/gram) 1 g vaginal .twice weekly #42.5 06/06/23 vaginal cream grams losartan 100 mg tablet 100 mg PO DAILY #90 tab-caps 06/28/23 lorazepam 0.5 mg tablet 0.5 mg PO DAILY PRN anxiety #5 tabs 09/14/23 acetaminophen 500 mg tablet 1,000 mg (2 x 500 mg) PO TID #90 10/04/23 tabs aspirin 81 mg tablet,delayed 81 mg PO BID #60 tabs 10/04/23 release celecoxib 200 mg capsule (Celebrex) 200 mg PO BID #60 caps 11/22/23 bupropion HCl 150 mg tablet,12 hr 150 mg PO QAM #90 tabs 11/23/23 sustained-release Current Visit Medications: Current Medications Generic Name Dose Route Start Last Admin Trade Name Freq PRN Reason Stop Dose Admin Celecoxib 400 mg 11/29/23 06:00 11/29/23 11:23 Celecoxib 200 Mg Cap PO 11/29/23 23:59 400 mg PREOP RAFIA Administration Ringer's Solution 1,000 mls @ 80 mls/hr 11/29/23 06:00 11/29/23 11:27 IV 11/29/23 23:59 80 mls/hr INFUSION RAFIA Administration IV Miscellaneous Supplies 1 each 11/29/23 06:00 Iv Access IV 11/29/23 23:59 DIRECTED RAFIA Sodium Chloride 0 ml 11/29/23 06:00 Normal Saline Flush 10 Ml Syr IV 11/29/23 23:59 PRN PRN Sodium Chloride 0 ml 11/29/23 06:00 Normal Saline 10 Ml Vial IJ 11/29/23 23:59 DIRECTED PRN Sterile Water 0 ml 11/29/23 06:00 Water,Injection,Sterile 10 Ml Vial IJ 11/29/23 23:59 DIRECTED PRN PFSH Active Problems Active Problems: Problem Status Onset Code Arthrofibrosis of total knee arthroplasty T84.82XA History of total left knee replacement 10/04/23 Z96.652 Vaginitis N76.0 Sacroiliac dysfunction M53.3 Tendinitis of right quadriceps tendon M76.891 Pes anserinus bursitis of left knee M70.52 Lumbar radiculopathy M54.16 Shoulder pain M25.519 Vertigo R42 Hypertension I10 Tick bite of axillary region S40.869A, W57.XXXA Cough R05.9 Wrist pain M25.539 Chronic thumb pain M79.646, G89.29 Sensorineural hearing loss of both ears H90.3 Decreased hearing H91.90 Arthralgia M25.50 Right leg pain M79.604 Fatigue 09/11/12 R53.83 Left hip pain Grief F43.21 Vitamin D deficiency 07/08/11 E55.9 Tubular adenoma 11/28/17 D36.9 Seborrheic keratosis 04/18/17 L82.1 RUQ abdominal pain 06/19/17 R10.11 Psoriasis 01/18/18 L40.9 Osteopenia M85.80 Obstructive sleep apnea syndrome G47.33 Neck pain M54.2 Medial epicondylitis of right elbow 04/18/17 M77.01 Knee pain M25.569 Joint pain 04/29/12 M25.50 Irritable colon K58.9 Impaired fasting glucose 07/04/11 R73.01 Hypothyroidism E03.9 Hyperlipidemia E78.5 Gastroesophageal reflux disease with esophagitis K21.0 Essential hypertension 05/24/13 I10 Dysphagia 06/02/14 R13.10 Dyshidrosis [pompholyx] L30.1 Disorder of lung 07/30/03 J98.4 Deviated nasal septum J34.2 Chronic left shoulder pain 01/02/17 M25.512, G89.29 Arthritis M19.90 Abdominal pain 06/02/14 R10.9 Pulmonary embolism 12/07/12 I26.99 Medical History Medical History Skin change URI (upper respiratory infection) Ganglion cyst of volar aspect of right wrist Medial epicondylitis of right elbow (04/18/17) Neck pain Stress due to illness of family member (05/24/16) pulmonary hypertension Depressive disorder GERD (gastroesophageal reflux disease) Hypothyroidism ASHLEIGH (obstructive sleep apnea) Surgical History Surgical History History of appendectomy History of hand surgery Replacement of total knee joint RIGHT KNEE REPAIR (~2011) TORN MINISCUS Hysterectomy, Laproscopic TOTAL; AGE 33. Colonoscopy - MAC (11/28/17) Tobacco Smoking/Tobacco Use Status: Never Passive smoking exposure: Yes Second hand exposure: Yes Alcohol Alcohol Intake: current Alcohol intake frequency: holidays/special occasions only Alcohol type: wine Substance Use Substance use: Never Substance use type: does not use Counseling provided: none Vital Signs and Lab Results Vital Signs Most Recent Vital Signs in EMR: Most Recent Vital Signs Temp Pulse Resp BP Pulse Ox 36.6 C 89 16 168/89 H 95 11/29/23 10:59 11/29/23 10:59 11/29/23 10:59 11/29/23 10:59 11/29/23 10:59 Lab Results Blood Type / Crossmatch: No Data to Display Complete Blood Count: No Data to Display Complete Metabolic Panel: No Data to Display Liver Function Panel: No Data to Display Coagulation Panel: No Data to Display Cardiac Panel: No Data to Display Arterial Blood Gas: No Data to Display Venous Blood Gas: No Data to Display Pancreas Panel: No Data to Display Thyroid Panel: No Data to Display Infectious Disease: No Data to Display Blood Cultures: No Data to Display Toxicology Panel: No Data to Display Imaging and Studies Imaging and Studies Study information below may be from another EMR and interpreted by another provider. Please see original notes in EMR for more complete details. Other Study Summary:: lumbar spine and c spine imaging reviewed and results in chart Anesthesia Assessment and Plan Anesthesia History Personal History: PONV and Delayed Emergence Family History: No Family History of Anesthesia Complications Exercise Tolerance Exercise Tolerance: Metabolic Equivalents>4 Pertinent Negatives Pertinent Negatives: No Symptoms of GERD, No Major Cardiovascular Symptoms or Complaints and No History of CVA/TIA Cardiac & Pulmonary Exam Cardiac Exam: Normal S1/S2 Heart Sounds Pulmonary Exam: Clear Bilateral Breath Sounds Implantable Cardiac Device Does patient have a Pacemaker or an ICD?: No Airway Exam Known Difficult Airway: No Mallampati Class: 4 Mouth Opening: Narrow (< 3cm) Thyromental Distance: Less than 3 cm Neck Range of Motion: Full ROM Neck Circumference: Normal Teeth Condition: Normal Dentition ASA Classification ASA Score: ASA 3 Emergency Case?: No NPO Status NPO Status: NPO Clears >2 hours, Solids >8 hours Anesthesia Plan Resuscitation Status: Full Code Anesthesia Technique: General Anesthesia Airway Planned: Natural Airway Monitors Used: Standard Monitors
[2023-11-29 11:34] VITALS: BMI 24.3
[2023-11-29] MEDS: Bupivacaine 0.25% Pres-Free 30 ML VIAL (11:56)
--- NOTE | 2023-11-29 12:03 | PDOC.DSDIS_ITS ---
Date of service: 11/29/23 Time of Service: 12:04 Discharge Plan Disposition Patient Disposition: Home Condition: Good Discharge Details Reason For Visit: Left Knee Arthrofibrosis Attending Provider: Nicholas Vázquez Primary Care Provider: Suzanne Bunn Home Meds and New Rx's Prescriptions: New tramadol 50 mg tablet 50 mg PO TID PRN (Reason: Pain) Qty: 10 0RF Continued mometasone 0.1 % solution 1 applic topical DAILY PRN (Reason: skin irritation) Qty: 60 5RF lorazepam 0.5 mg tablet 0.5 mg PO DAILY PRN (Reason: anxiety) Qty: 5 0RF cholecalciferol (vitamin D3) 50 mcg (2,000 unit) capsule 50 mcg PO DAILY estradiol 0.01 % (0.1 mg/gram) cream 1 g vaginal .twice weekly Qty: 42.5 5RF betamethasone dipropionate 15 GM ointment 2 - 5 gm Topical BID PRNQty: 45 Rx Instructions: DISPENSE CREAM NOT OINTMENT. dispense 45gm tube. Apply to arms and legs mometasone 0.1 % cream 1 applic TP DAILY Qty: 50 4RF levothyroxine 50 mcg tablet 50 mcg PO DAILY Qty: 90 3RF pantoprazole 40 mg tablet,delayed release (DR/EC) 40 mg PO DAILY PRN (Reason: GERD) Qty: 90 4RF hydrochlorothiazide 12.5 mg tablet 12.5 mg PO QAM Qty: 90 3RF losartan 100 mg tablet 100 mg PO DAILY Qty: 90 12RF bupropion HCl 150 mg tablet sustained-release 12 hr 150 mg PO QAM Qty: 90 5RF celecoxib [Celebrex] 200 mg capsule 200 mg PO BID Qty: 60 1RF acetaminophen 500 mg tablet 1,000 mg PO TID Qty: 90 3RF aspirin 81 mg tablet,delayed release (DR/EC) 81 mg PO BID Qty: 60 0RF Discharge Instructions Additional Instructions: Knee Manipulation Discharge Instructions Activity: You should begin moving as soon as possible. You may work on flexion but also equally maintain extension. You may bear weight as tolerated, using crutches only for support/comfort. You should apply ice to help with swelling and elevate when possible (especially in the first few days). Dressings: Bandaid may be removed later today. Medications: - Rarely does this require any stronger pain medications, but Tramadol was called in. - Recommend to take up to 1000mg of Acetaminophen (Tylenol) every 8 hours as needed and 200mg of Celebrex twice daily. These larger strength tablets were called in but you also may use [id number]. Follow-up: PT starts tomorrow. F/U in clinic in 7-10 days Referrals: Nicholas Vázquez MD [ [facility] STAFF PHYSICIAN] - Remove Dressings/Wound Care:: 24 hours Shower/Bathe:: 24 hours Diet:: As Tolerated Discharge Orders Discharge Orders: Discharge Order (Routine); Ordered 11/29/23 Ordered By: Nicholas Vázquez DS: Diagnosis Discharge Diagnosis (1) Arthrofibrosis of total knee arthroplasty: Status: Acute
--- NOTE | 2023-11-29 12:07 | ROE_ITS ---
Date of service: 11/29/23 Time of Service: 11:55 Operative Note Operative Note DATE OF PROCEDURE: 11/29/23 PRE-OP DIAGNOSIS: Left Knee Arthrofibrosis s/p Replacement POST-OP DIAGNOSIS: same PROCEDURE: Left Knee Manipulation Under Anesthesia SURGEON: Nicholas Vázquez ANESTHESIA TYPE: General:No Airway Refer to Anesthesia Record ESTIMATED BLOOD LOSS: 0 PATHOLOGY: none sent TOURNIQUET TIME: 0 COMPLICATIONS: None Patient was transported to: PACU Patient's condition: stable Indications: Nyla is a 78 year old female who is s/p knee replacement. Despite diligent work with physical therapy there has been continued stiffness. To assist with mobility, I offered a manipulation under anesthesia. I discussed the risks of the procedure to include bleeding, pain, recurrent stiffness, fracture. Despite these risks, she elects to proceed. Findings: Preoperative flexion = 100 Postoperative flexion = 130 Preoperative extension = 2-3 Postoperative extension = 2-3 Procedure Description: The patient was greeted in the preoperative holding area. Identity was confirmed and the correct side was identified and marked. The consent was reviewed the patient and signed. History and physical was updated. Nyla was taken back to the operating room. The left side was identified as the correct side. A timeout was performed for safe surgery. A general anesthetic was administered. The knee was then prepped with ChloraPrep and an intra-articular injection of 10 cc of 0.5% bupivacaine was administered. Once a muscle relaxant was fully on board manipulation was performed. Pre- manipulation range of motion was noted. A gentle manipulation was performed first into flexion using a very small lever arm and adding gentle and progressive pressure to the tibia. There is audible and palpable crepitus with improvement in range of motion. This was cycled and repeated multiple times. The leg was then brought into extension and gentle anterior posterior pressure was applied with a supported hand behind the proximal tibia and knee. This was brought back into flexion was once again manipulated with gentle and progressive pressure. Final range of motion numbers were recorded. She had significant improvement with her flexion from around the 100 degrees to at least 130 degrees. Extension was close to full but still lacked a degree or 2, similar to her preoperative state. A Band-Aid was applied to the injection site. She was awakened from anesthesia and taken to the PACU in stable condition.
[2023-11-29 12:10] VITALS: BP 143/61; PULSE 83; RESP 22; TEMP 36.6; O2SAT 93
[2023-11-29 12:34] VITALS: BP 164/57; PULSE 76; RESP 16; TEMP 36.6; O2SAT 98
--- NOTE | 2023-11-29 12:41 | W.ANESPOSTOP ---
Postoperative Evaluation Date, Time and Location Date Performed: 11/29/23 Time Performed: 12:41 Patient Location: Day Surgery Unit Vital Signs Most Recent Imported Vital Signs: Most Recent Vital Signs Temp Pulse Resp BP Pulse Ox 36.6 C 76 16 164/57 H 98 11/29/23 12:34 11/29/23 12:34 11/29/23 12:34 11/29/23 12:34 11/29/23 12:34 Pain Score Most Recent Pain Score: Most Recent Pain Score Pain Level 0 11/29/23 12:34 Assessment Mental Status: Awake (Alert & Oriented to Patient Baseline) Airway and Respiratory Function: Patent airway with normal (patient baseline) respiratory exam Cardiovascular Function: Hemodynamically Stable Hydration Status: Adequately Hydrated Nausea & Vomiting: No Nausea or Vomiting Pain: Pt. Denies Any Pain Peripheral Nerve Block: Patient did not receive a nerve block
== END 2023-11-29 13:18 | disposition home or self-care (01) ==
PROVIDERS: PCP Family Medicine; Visit Provider Student in an Organized Health Care Education/Training Program
PROC: (CPT 27570; principal; 2023-11-29 13:15)
DX: T84.82XA Fibrosis due to internal orthopedic prosthetic devices, implants and grafts, initial encounter (principal); Z96.652 Presence of left artificial knee joint; I10 Essential (primary) hypertension; E55.9 Vitamin D deficiency, unspecified; R73.01 Impaired fasting glucose
CPT/HCPCS: 27570; J0330; J0665; J2001; J2405; J2704

== ENCOUNTER → 2023-12-14 14:09 | Outpatient (BNVA) | payer MEDICARE, SELFPAY | PROVIDERS: PCP Family Medicine; Referring Provider Family Medicine; Visit Provider Student in an Organized Health Care Education/Training Program | DX: Z47.1 Aftercare following joint replacement surgery (principal); Z96.652 Presence of left artificial knee joint; T84.82XD Fibrosis due to internal orthopedic prosthetic devices, implants and grafts, subsequent encounter ==

== ENCOUNTER → 2024-01-08 14:01 | Outpatient (BNVA) | payer MEDICARE, SELFPAY | PROVIDERS: PCP Family Medicine; Referring Provider Family Medicine; Visit Provider Student in an Organized Health Care Education/Training Program | DX: Z47.1 Aftercare following joint replacement surgery (principal); T84.82XA Fibrosis due to internal orthopedic prosthetic devices, implants and grafts, initial encounter; Z96.652 Presence of left artificial knee joint ==

== ENCOUNTER 2024-01-29 04:10 | Outpatient (CLI) | payer MEDICARE, SELFPAY ==
[2024-01-29 12:52] LABS: TSH (W/Ref FT4) 1.85 uIU/mL (0.36-3.74)
[2024-01-29 19:46] LABS: Hepatitis C Ab w Rflx HCV PCR Negative (Negative)
== END 2024-01-29 04:11 | disposition home or self-care (01) ==
LOC: LOS 04:10
PROVIDERS: PCP Family Medicine; Referring Provider Family Medicine; Visit Provider Family Medicine
DX: Z00.00 Encounter for general adult medical examination without abnormal findings (principal); E03.9 Hypothyroidism, unspecified
CPT/HCPCS: 36415; 86803; 84443

== ENCOUNTER → 2024-02-19 14:37 | Outpatient (BNVA) | payer MEDICARE, SELFPAY | PROVIDERS: PCP Family Medicine; Referring Provider Family Medicine; Visit Provider Student in an Organized Health Care Education/Training Program | DX: Z47.1 Aftercare following joint replacement surgery (principal); T84.82XA Fibrosis due to internal orthopedic prosthetic devices, implants and grafts, initial encounter; Z96.652 Presence of left artificial knee joint ==

== ENCOUNTER → 2024-04-04 13:02 | Outpatient (BNVA) | payer MEDICARE, SELFPAY | PROVIDERS: PCP Family Medicine; Visit Provider Student in an Organized Health Care Education/Training Program | DX: Z47.1 Aftercare following joint replacement surgery (principal); T84.82XA Fibrosis due to internal orthopedic prosthetic devices, implants and grafts, initial encounter; Z96.652 Presence of left artificial knee joint | CPT/HCPCS: 99213 ==

== ENCOUNTER 2024-05-30 11:40 | Outpatient (CLI) | payer MEDICARE, SELFPAY ==
--- NOTE | 2024-05-30 11:30 | DI.RAD_ITS ---
Exam(s) XR KNEE LT 3V AP,LAT,NANCY EXAM: XR KNEE LT 3V AP,LAT,NANCY CLINICAL HISTORY: fall s/p TKR. TECHNIQUE: 2D digital imaging was performed. Three views. COMPARISON: CR LEFT KNEE 3 VIEW COMPLETE from 04/17/2012 CR LEFT KNEE 3 VIEW COMPLETE from 01/19/2018 CR XR KNEE LT 3V AP,LAT,NANCY from 02/01/2023 CR XR STANDING ALIGNMENT from 09/18/2023 CR XR STANDING ALIGNMENT from 10/19/2023 CR XR KNEE LT 1V from 10/19/2023 FINDINGS: BONES: Small bony fragment seen at the lateral aspect of the patella. The findings could represent an acute fracture fragment versus chronic finding. No bony destructive lesion is seen. JOINTS: No change in the alignment the knee is normally aligned. No joint effusion is seen. SOFT TISSUE: Normal. IMPRESSION: Question small fracture fragment the lateral border of the patella versus chronic calcification. Cli nical correlation recommended. DATA REPOSITORY: RADIATION DOSE DELIVERED:
== END 2024-05-30 11:41 | disposition home or self-care (01) ==
LOC: DIORS 11:40
PROVIDERS: PCP Family Medicine; Referring Provider Family Medicine; Visit Provider Student in an Organized Health Care Education/Training Program
DX: Z96.652 Presence of left artificial knee joint (principal); Z47.1 Aftercare following joint replacement surgery; T84.82XD Fibrosis due to internal orthopedic prosthetic devices, implants and grafts, subsequent encounter
CPT/HCPCS: 73562; 99213

== ENCOUNTER → 2024-08-01 11:14 | Outpatient (BNVA) | payer MEDICARE, SELFPAY | PROVIDERS: PCP Family Medicine; Referring Provider Family Medicine; Visit Provider Student in an Organized Health Care Education/Training Program | DX: Z47.1 Aftercare following joint replacement surgery (principal); Z96.652 Presence of left artificial knee joint | CPT/HCPCS: 99213 ==

== ENCOUNTER 2024-08-30 11:07 | Day surgery (SDC) | payer MEDICARE, SELFPAY ==
--- NOTE | 2024-08-30 10:30 | W.PM.DSUDISC ---
Date of service: 08/30/24 Discharge Plan Disposition Patient Disposition: Home Condition: Good Discharge Details Reason For Visit: L knee arthroscopy Attending Provider: Nicholas Vázquez Primary Care Provider: Suzanne Bunn Home Meds and New Rx's Prescriptions: New tramadol 50 mg tablet 50 mg PO Q8H PRNQty: 10 0RF acetaminophen 500 mg tablet 1,000 mg PO TID Qty: 90 0RF ibuprofen 600 mg tablet 600 mg PO TID PRN (Reason: pain) Qty: 90 0RF Continued mometasone 0.1 % solution 1 applic topical DAILY PRN (Reason: skin irritation) Qty: 60 5RF cholecalciferol (vitamin D3) 50 mcg (2,000 unit) capsule 50 mcg PO DAILY estradiol 0.01 % (0.1 mg/gram) cream 1 g vaginal .twice weekly Qty: 42.5 5RF bupropion HCl 150 mg tablet sustained-release 12 hr 150 mg PO QAM Qty: 90 5RF levothyroxine 50 mcg tablet 50 mcg PO DAILY Qty: 90 3RF hydrochlorothiazide 12.5 mg tablet 12.5 mg PO QAM Qty: 90 3RF pantoprazole 40 mg tablet,delayed release (DR/EC) 40 mg PO DAILY PRN (Reason: GERD) Qty: 90 4RF losartan 100 mg tablet 100 mg PO DAILY Qty: 90 12RF Discharge Instructions Stand Alone Forms: Kathie Knee Arthroscopy Equipment/Supplies: Partial Weight Bearing Crutches Activity:: Activity as Tolerated Remove Dressings/Wound Care:: 72 hours Shower/Bathe:: 72 hours Diet:: As Tolerated Discharge Orders Discharge Orders: Discharge Order (Routine); Ordered 08/30/24 Ordered By: Trey Johnson DS: Diagnosis Discharge Diagnosis (1) Arthrofibrosis of total knee arthroplasty: Status: Acute
[2024-08-30 11:45] VITALS: BP 156/65; PULSE 76; RESP 14; TEMP 36.6; O2SAT 98
[2024-08-30] MEDS: Celecoxib 200 MG CAP 400 MG PO (12:24)
[2024-08-30] MEDS: Acetaminophen 500 MG TAB 1000 MG PO (12:24)
[2024-08-30] MEDS: Lactated Ringers 1,000 ML 80 ML IV (12:50)
--- NOTE | 2024-08-30 13:10 | W.ANESPRE ---
General Info Date of Service Date Performed: 08/30/24 Height: 5 ft 1.5 in Weight: 58.8 kg Body Mass Index (BMI): 24.0 Surgical Procedure: Operation Date: 08/30/24 13:40 Proposed Procedure Side Surgeon p Knee Arthroscopy, Synovectomy Left Nicholas Vázquez MD Actual Procedure Side Surgeon p Knee Arthroscopy, Synovectomy Left Nicholas Vázquez MD Meds Allergies and Home Medications Allergies Allergy/AdvReac Type Severity Reaction Status Date / Time neomycin Allergy Unknown Other (See Verified 08/28/24 15:10 Comment) piperazine Allergy Unknown Hives Verified 08/28/24 15:10 Opioids - Morphine Analogues AdvReac Severe Psychosis Verified 08/28/24 15:10 Tbnyyph-VXN-PuY Reductase AdvReac Mild MUSCLE PAIN Verified 08/28/24 15:10 Inhibitor (Vhelgeh-Bgw-Myo Reductase Inhibitor) Home Medication ?Medication ?Instructions ?Recorded cholecalciferol (vitamin D3) 50 50 mcg PO DAILY 11/29/21 mcg (2,000 unit) capsule mometasone 0.1 % topical solution 1 applic topical DAILY PRN skin 12/29/22 irritation #60 mL estradiol 0.01% (0.1 mg/gram) 1 g vaginal .twice weekly #42.5 06/06/23 vaginal cream grams bupropion HCl 150 mg tablet,12 hr 150 mg PO QAM #90 tabs 11/23/23 sustained-release levothyroxine 50 mcg tablet 50 mcg PO DAILY #90 tab-caps 05/03/24 hydrochlorothiazide 12.5 mg tablet 12.5 mg PO QAM #90 tabs 06/02/24 pantoprazole 40 mg tablet,delayed 40 mg PO DAILY PRN GERD #90 06/05/24 release tab-caps losartan 100 mg tablet 100 mg PO DAILY #90 tab-caps 08/22/24 acetaminophen 500 mg tablet 1,000 mg (2 x 500 mg) PO TID #90 08/30/24 tabs ibuprofen 600 mg tablet 600 mg PO TID PRN pain #90 tabs 08/30/24 tramadol 50 mg tablet 50 mg PO Q8H PRN #10 tabs 08/30/24 Current Visit Medications: Current Medications Generic Name Dose Route Start Last Admin Trade Name Freq PRN Reason Stop Dose Admin Acetaminophen 1,000 mg 08/30/24 06:00 08/30/24 12:24 Acetaminophen 500 Mg Tab PO 08/30/24 23:59 1,000 mg PREOP RAFIA Administration Acetaminophen 650 mg 08/30/24 10:28 Acetaminophen 325 Mg Tab PO 09/29/24 10:27 Q4H PRN PRN Celecoxib 400 mg 08/30/24 06:00 08/30/24 12:24 Celecoxib 200 Mg Cap PO 08/30/24 23:59 400 mg PREOP RAFIA Administration Cefazolin Sodium/Dextrose 2 gm in 50 mls @ 100 mls/hr 08/30/24 06:00 Ancef Duplex IVPB 08/30/24 23:59 PREOP RAFIA Tranexamic Acid/Sodium Chloride 1,000 mg in 100 mls @ 600 mls/hr 08/30/24 06:00 IVPB 08/30/24 23:59 PREOP RAFIA Ringer's Solution 1,000 mls @ 80 mls/hr 08/30/24 13:00 08/30/24 12:50 IV 09/29/24 12:59 80 mls/hr INFUSION RAFIA Administration IV Miscellaneous Supplies 1 each 08/30/24 06:00 Iv Access IV 08/30/24 23:59 DIRECTED RAFIA Sodium Chloride 0 ml 08/30/24 06:00 Normal Saline Flush 10 Ml Syr IV 08/30/24 23:59 PRN PRN Sodium Chloride 0 ml 08/30/24 06:00 Normal Saline 10 Ml Vial IJ 08/30/24 23:59 DIRECTED PRN Sterile Water 0 ml 08/30/24 06:00 Water,Injection,Sterile 10 Ml Vial IJ 08/30/24 23:59 DIRECTED PRN Tramadol HCl 50 mg 08/30/24 10:28 Tramadol 50 Mg Tab PO 09/29/24 10:27 Q6H PRN PRN PFSH Active Problems Active Problems: Problem Status Onset Code Sebaceous cyst Acute L72.3 Arthrofibrosis of total knee arthroplasty Acute T84.82XA History of total left knee replacement Acute 10/04/23 Z96.652 Vaginitis Acute N76.0 Sacroiliac dysfunction Acute M53.3 Tendinitis of right quadriceps tendon Acute M76.891 Pes anserinus bursitis of left knee Acute M70.52 Lumbar radiculopathy Acute M54.16 Shoulder pain Acute M25.519 Vertigo Acute R42 Hypertension Chronic I10 Tick bite of axillary region Acute S40.869A, W57.XXXA Cough Acute R05.9 Wrist pain Acute M25.539 Chronic thumb pain Acute M79.646, G89.29 Sensorineural hearing loss of both ears Acute H90.3 Decreased hearing Acute H91.90 Arthralgia Acute M25.50 Right leg pain Acute M79.604 Fatigue Resolved 09/11/12 R53.83 Left hip pain Acute Grief Acute F43.21 Vitamin D deficiency Chronic 07/08/11 E55.9 Tubular adenoma Chronic 11/28/17 D36.9 Seborrheic keratosis Chronic 04/18/17 L82.1 RUQ abdominal pain Chronic 06/19/17 R10.11 Psoriasis Chronic 01/18/18 L40.9 Osteopenia Chronic M85.80 Obstructive sleep apnea syndrome Chronic G47.33 Neck pain Chronic M54.2 Medial epicondylitis of right elbow Chronic 04/18/17 M77.01 Knee pain Chronic M25.569 Joint pain Chronic 04/29/12 M25.50 Irritable colon Chronic K58.9 Impaired fasting glucose Chronic 07/04/11 R73.01 Hypothyroidism Chronic E03.9 Hyperlipidemia Chronic E78.5 Gastroesophageal reflux disease with esophagitis Chronic K21.0 Essential hypertension Chronic 05/24/13 I10 Dysphagia Chronic 06/02/14 R13.10 Dyshidrosis [pompholyx] Chronic L30.1 Disorder of lung Chronic 07/30/03 J98.4 Deviated nasal septum Chronic J34.2 Chronic left shoulder pain Chronic 01/02/17 M25.512, G89.29 Arthritis Chronic M19.90 Abdominal pain Chronic 06/02/14 R10.9 Pulmonary embolism Chronic 12/07/12 I26.99 Medical History Medical History Skin change URI (upper respiratory infection) Ganglion cyst of volar aspect of right wrist Medial epicondylitis of right elbow (04/18/17) Neck pain Stress due to illness of family member (05/24/16) pulmonary hypertension Depressive disorder GERD (gastroesophageal reflux disease) Hypothyroidism ASHLEIGH (obstructive sleep apnea) Medical History Comments:: Prefers to not have anesthesia; only spinal and watch Surgical History Surgical History History of appendectomy History of hand surgery Replacement of total knee joint RIGHT KNEE REPAIR (~2011) TORN MINISCUS Hysterectomy, Laproscopic TOTAL; AGE 33. Colonoscopy - MAC (11/28/17) Tobacco Smoking/Tobacco Use Status: Never Passive smoking exposure: No Second hand exposure: Yes Alcohol Alcohol Intake: current Alcohol intake frequency: holidays/special occasions only Alcohol type: wine Substance Use Substance use: Never Substance use type: does not use Counseling provided: none Vital Signs and Lab Results Vital Signs Most Recent Vital Signs in EMR: Most Recent Vital Signs Temp Pulse Resp BP Pulse Ox 36.6 C 76 14 156/65 H 98 08/30/24 11:45 08/30/24 11:45 08/30/24 11:45 08/30/24 11:45 08/30/24 11:45 Lab Results Blood Type / Crossmatch: No Data to Display Complete Blood Count: No Data to Display Complete Metabolic Panel: No Data to Display Liver Function Panel: No Data to Display Coagulation Panel: No Data to Display Cardiac Panel: No Data to Display Arterial Blood Gas: No Data to Display Venous Blood Gas: No Data to Display Pancreas Panel: No Data to Display Thyroid Panel: No Data to Display Infectious Disease: No Data to Display Blood Cultures: No Data to Display Toxicology Panel: No Data to Display Imaging and Studies Imaging and Studies Study information below may be from another EMR and interpreted by another provider. Please see original notes in EMR for more complete details. Other Study Summary:: lumbar spine and c spine imaging reviewed and results in chart Anesthesia Assessment and Plan Anesthesia History Personal History: PONV and Delayed Emergence Family History: No Family History of Anesthesia Complications Exercise Tolerance Exercise Tolerance: Metabolic Equivalents>4 Pertinent Negatives Pertinent Negatives: No Symptoms of GERD Cardiac & Pulmonary Exam Cardiac Exam: Normal S1/S2 Heart Sounds Pulmonary Exam: Clear Bilateral Breath Sounds Implantable Cardiac Device Does patient have a Pacemaker or an ICD?: No Airway Exam Known Difficult Airway: No Mallampati Class: 4 Mouth Opening: Narrow (< 3cm) Thyromental Distance: Less than 3 cm Neck Range of Motion: Full ROM Neck Circumference: Normal Teeth Condition: Normal Dentition ASA Classification ASA Score: ASA 2 Emergency Case?: No NPO Status NPO Status: NPO Clears >2 hours, Solids >8 hours Anesthesia Plan Resuscitation Status: Full Code Anesthesia Technique: Spinal Anesthesia Airway Planned: Natural Airway Monitors Used: Standard Monitors Preoperative Comments:: Hx of delayed wake-up
[2024-08-30 13:11] VITALS: BMI 24.0
[2024-08-30] MEDS: ceFAZolin 2 GM/50 ML BAG IVPB (14:01)
[2024-08-30] MEDS: TRANEXAMIC ACID/SOD. CHL. 1,000 MG/100 ML BAG 600 MG IVPB (14:11)
[2024-08-30] MEDS: Bupivacaine 0.25% Pres-Free 30 ML VIAL (14:16)
[2024-08-30] MEDS: EPINEPHrine 10 MG/10 ML ML (14:16)
--- NOTE | 2024-08-30 14:43 | W.PM.OP ---
Operative Note Operative Note PRE-OP DIAGNOSIS: Arthrofibrosis and Crepitus of Knee Replacement - LEFT POST-OP DIAGNOSIS: same PROCEDURE: Arthroscopic Synovectomy of 3 Compartments - LEFT Knee SURGEON: Nicholas Vázquez ANESTHESIA TYPE: Spinal Refer to Anesthesia Record ESTIMATED BLOOD LOSS: 5 PATHOLOGY: none sent COMPLICATIONS: None Patient was transported to: PACU Patient's condition: stable Indications: I have seen Nyla in clinic for symptoms of arthrofibrosis and crepitus of the knee following knee replacement surgery. Nonoperative measures were exhausted but disability due to lack of motion persisted. I discussed knee arthroscopy with synovectomy with maniuplation with the patient. I reviewed the risks of the procedure to include, but not limited to, bleeding, infection, pain, continued stiffness, recurrence, blood clot. Despite these risks, the patient elected to proceed. Findings: There is some dense scar tissue adhesions in the suprapatellar space as well as some inflammatory frayed tissue seen both in the medial and lateral gutters. Procedure Description: Nyla was greeted in the preoperative holding area where the correct side was identified and marked. The consent was reviewed with the patient and signed. The history and physical was updated. All questions were answered. She was taken back to the operating room. The patient was placed into the supine position on the operating room table. All bony prominences were well padded. Prophylactic antibiotics in the form of Cefazolin were administered. The LEFT leg was then prepped with Chloraprep and draped in a standard fashion with stockinette and extremity drape. A timeout to confirm correct identity, side and site, procedure, allergies, anesthesia, and medical concerns was performed. The leg was placed into a pneumatic leg coreas, SPIDER2. A standard lateral portal was made at the lateral border of the patella tendon in line with the inferior pole of the patella, soft spot. The skin and deep tissue was incised sharply and the blunt trochar was inserted atraumatically. At this point had visualization of the femoral component. A superolateral portal was then established with spinal needle localization just superior and lateral to the patella. A knife was taken down through the skin and soft tissue to enter the knee joint. Starting in the superior compartment above the femoral component and anterior to the femur I released all scarring between the anterior femoral synovium and the overlying extensor mechanism. This was taken through all of any noticeable scar tissue until the superior patellar pouch was fully released and mobile. This resection was carried out mostly with electrocautery as well as shaver. Once this was released fully from lateral to medial superiorly I then continue working down the lateral gutter. All scar tissue in the lateral gutter was released so there is normal space and movement between the capsular tissues and the edge of the femoral component and femur. There was some frayed and inflamed tissue in this region. This was taken down through the lateral gutter such that I was able to identify the polyethylene to its posterior corner. Once again, all scar tissue in this area was resected so the polyethylene was easily visible and there is no interposed tissue in the back or the polyethylene was identified. I think continue to work anteriorly. To continue the synovectomy from the lateral compartment to the anterior compartment into the medial compartment, I placed a medial portal under spinal needle localization. Once this was in place it became another working portal and I continued the synovectomy through the anterior compartment to the medial compartment. Once again, I freed up the medial gutter so I was able to visualize the polyethylene from the anterior posterior margins. There is no interposed tissue after full synovectomy was performed. Adhesions between the capsule and the femur were released. This was continued up the medial gutter until it met up with the releases performed previously in the superior compartment. There was some frayed and inflamed tissue seen in the far posterior aspect of the medial gutter. Any remnant scar tissue from around the patella was then removed with a shaver and electrocautery. The arthroscope was brought back into the suprapatellar pouch and the leg was in full extension. The knee was thoroughly irrigated with the arthroscopic fluid on high flow and pressure. Inflow was stopped and excess fluid was removed. The wounds were closed with 4-0 Nylon. 0.25% bupivacaine was injected around the portal sites and into the knee. The wounds were dressed with Xeroform, 4x4 gauze, ABD pad, Kerlix and an CARLITO wrap. A cryo-cuff was applied. The patient tolerated the procedure well and was returned to the Same Day Surgery area in a stable condition suffering no known complication.. Date of Procedure: 08/30/24
[2024-08-30 14:45] VITALS: BP 144/55; PULSE 79; RESP 15; TEMP 36.1; O2SAT 100
--- NOTE | 2024-08-30 14:57 | W.ANESPOSTOP ---
Postoperative Evaluation Date, Time and Location Date Performed: 08/30/24 Time Performed: 14:57 Patient Location: Day Surgery Unit Vital Signs Most Recent Imported Vital Signs: Most Recent Vital Signs Temp Pulse Resp BP Pulse Ox 36.6 C 76 14 156/65 H 98 08/30/24 11:45 08/30/24 11:45 08/30/24 11:45 08/30/24 11:45 08/30/24 11:45 Pain Score Most Recent Pain Score: Most Recent Pain Score Pain Level 0 08/30/24 11:45 Assessment Mental Status: Awake (Alert & Oriented to Patient Baseline) Airway and Respiratory Function: Patent airway with normal (patient baseline) respiratory exam Cardiovascular Function: Hemodynamically Stable Hydration Status: Adequately Hydrated Nausea & Vomiting: No Nausea or Vomiting Pain: Pt. Denies Any Pain Peripheral Nerve Block: Patient did not receive a nerve block
[2024-08-30 15:26] VITALS: BP 163/65; PULSE 66; RESP 16; TEMP 36.2; O2SAT 96
== END 2024-08-30 15:50 | disposition home or self-care (01) ==
LOC: SUR 11:08
PROVIDERS: PCP Family Medicine; Visit Provider Student in an Organized Health Care Education/Training Program
PROC: (CPT 29870; principal; 2024-08-30 13:30)
DX: T84.82XA Fibrosis due to internal orthopedic prosthetic devices, implants and grafts, initial encounter (principal); M23.8X2 Other internal derangements of left knee; Z96.652 Presence of left artificial knee joint
CPT/HCPCS: 29876; J0665; J0690; J1100; J2003; J2401; J2405; J2704

== ENCOUNTER → 2024-09-12 09:52 | Outpatient (BNVA) | payer MEDICARE, SELFPAY | PROVIDERS: PCP Family Medicine; Referring Provider Family Medicine | DX: Z47.89 Encounter for other orthopedic aftercare (principal); T84.82XA Fibrosis due to internal orthopedic prosthetic devices, implants and grafts, initial encounter; Z96.652 Presence of left artificial knee joint | CPT/HCPCS: 99024 ==

== ENCOUNTER 2024-10-14 08:55 | Outpatient (CLI) | payer MEDICARE, SELFPAY ==
--- NOTE | 2024-10-14 09:00 | DI.RAD_ITS ---
Exam(s) XR KNEE LT 2V AP,LAT EXAM: XR KNEE LT 2V AP,LAT INDICATION: yearly follow up. COMPARISON: CR XR KNEE LT 3V AP,LAT,NANCY from 05/30/2024 TECHNIQUE: 2D digital imaging was performed. Two views. FINDINGS: The alignment of the total knee prosthesis is stable. There are no abnormal surrounding bony lucenci es. DATA REPOSITORY: RADIATION DOSE DELIVERED:
== END 2024-10-14 08:56 | disposition home or self-care (01) ==
LOC: DIORS 08:55
PROVIDERS: PCP Family Medicine; Referring Provider Family Medicine; Visit Provider Physician Assistant
DX: Z47.1 Aftercare following joint replacement surgery (principal); T84.82XA Fibrosis due to internal orthopedic prosthetic devices, implants and grafts, initial encounter; Z96.652 Presence of left artificial knee joint
CPT/HCPCS: 99024; 73560

== ENCOUNTER 2025-01-23 00:50 | Outpatient (CLI) | payer MEDICARE, SELFPAY ==
--- NOTE | 2025-01-23 08:37 | DI.RAD_ITS ---
Exam(s) XR CHEST 2V PA LATERAL EXAM: XR CHEST 2V PA LATERAL CLINICAL HISTORY: congestion, fever, chills,R50.9 TECHNIQUE: 2D digital imaging was performed. Two views. COMPARISON: CR CHEST 2 VIEWS PA,LAT from 12/31/2009 CR,RF BARIUM SWALLOW from 09/29/2016 FINDINGS: HEART: Normal size. Aorta: Not dilated. PULMONARY VASCULATURE: Normal. MEDIASTINUM: Unremarkable. LUNGS: Calcified nodule again noted in the right mid lung field. The lungs are otherwise clear. PLEURAL SPACE: No pleural effusion or pneumothorax. BONE:Unremarkable for age. SOFT TISSUES: Unremarkable. IMPRESSION: No acute abnormality. DATA REPOSITORY: RADIATION DOSE DELIVERED:
== END 2025-01-23 01:10 ==
LOC: DI 00:50
PROVIDERS: PCP Family Medicine; Visit Provider Family Medicine
DX: R50.9 Fever, unspecified (principal); R91.8 Other nonspecific abnormal finding of lung field
CPT/HCPCS: 71046

== ENCOUNTER 2025-01-23 08:46 | Outpatient (CLI) | payer MEDICARE, SELFPAY ==
[2025-01-23 09:25] LABS: HCT 38.8 % (36.0-46.0); HGB 13.2 g/dL (11.2-15.7); MCH 29.3 pg (27.0-33.0); MCV 86 fL (80-95); MPV 12.5 fL (8.0-11.0); Platelet Count 120 10^3/uL (130-400); RBC 4.51 10^6/uL (3.93-5.22); RDW 12.8 % (11.7-14.6); RDW-SD 40.4 fL
[2025-01-23 10:07] LABS: ALT 65 U/L (14-59); AST 76 U/L (15-37); Albumin 3.7 g/dL (3.4-5.0); Alkaline Phosphatase 131 U/L (46-116); Anion Gap 7.6 mmol/L (3-11); BUN 29 mg/dL (7-18); Bilirubin, Total 0.8 mg/dL (0.2-1.0); CO2 29.4 mmol/L (21.0-32.0); CREATININE 1.1 mg/dL (0.55-1.02); Calculated LDL 169 mg/dL (<100); Chloride 96 mmol/L (98-107); Cholesterol 252 mg/dL (<200); Estimated GFR 51.11 (mL/min/1.73m2); Glucose 147 mg/dL (74-106); HDL Cholesterol 58 mg/dL (>or=50); Potassium 3.5 mmol/L (3.5-5.1); Sodium 133 mmol/L (136-145); TSH (W/Ref FT4) 2.51 uIU/mL (0.36-3.74); Total Protein 7.7 g/dL (6.4-8.2); Triglyceride 125 mg/dL (<150)
== END 2025-01-23 08:47 | disposition home or self-care (01) ==
LOC: LBO 08:47
PROVIDERS: PCP Family Medicine; Visit Provider Family Medicine
DX: E11.9 Type 2 diabetes mellitus without complications (principal); I10 Essential (primary) hypertension; E03.9 Hypothyroidism, unspecified
CPT/HCPCS: 36415; 80053; 80061; 85027; 87040; 81003; 81015; 83036; 84443; 87086

== ENCOUNTER 2025-01-23 13:37 | Inpatient (IN) | payer MEDICARE, SELFPAY ==
[2025-01-23] VITALS (18 sets, daily range): BP systolic 116–160; BP diastolic 32–59; PULSE 85–102; RESP 16–18; TEMP 37.1–39.3; O2SAT 89–98
--- NOTE | 2025-01-23 14:14 | W.ED.GENAD ---
Discharge Plan Disposition Patient Disposition: Admit to [facility] Condition: Stable Discharge Details Clinical Impression: Sepsis, Lymphopenia, Dehydration Primary Care Provider: Suzanne Bunn ED Provider: Nino Perez Home Meds and New Rx's Prescriptions: No Action mometasone 0.1 % solution 1 applic topical DAILY PRN (Reason: skin irritation) Qty: 60 5RF cholecalciferol (vitamin D3) 50 mcg (2,000 unit) capsule 50 mcg PO DAILY estradiol 0.01 % (0.1 mg/gram) cream 1 g vaginal .twice weekly Qty: 42.5 5RF levothyroxine 50 mcg tablet 50 mcg PO DAILY Qty: 90 3RF hydrochlorothiazide 12.5 mg tablet 12.5 mg PO QAM Qty: 90 3RF pantoprazole 40 mg tablet,delayed release (DR/EC) 40 mg PO DAILY PRN (Reason: GERD) Qty: 90 4RF losartan 100 mg tablet 100 mg PO DAILY Qty: 90 12RF betamethasone dipropionate 0.05 % cream 1 applic topical BID PRN (Reason: skin irritation) Qty: 45 5RF bupropion HCl 150 mg tablet sustained-release 12 hr 150 mg PO QAM Qty: 90 5RF acetaminophen 500 mg tablet 1,000 mg PO TID Qty: 90 0RF ibuprofen 600 mg tablet 600 mg PO TID PRN (Reason: pain) Qty: 90 0RF HPI General Date/Time Provider Initiated Documentation: 01/23/25 13:53. HPI Narrative: 79-year-old female with past medical history of hypertension, hypothyroidism, GERD, who presents today for feeling ill. Patient states that for the last 3 to 4 days she has had a fever with a Tmax of 103, she has had a cough, has not been drinking much, has noted significant darkening of her urine. She admits to nausea but denies any excessive vomiting. She admits to a very very mild headache, but denies any neck pain or stiffness. She did see her primary care provider today, who did perform basic blood work, chest x-ray which was read as negative for any evidence of pneumonia. Despite this she still feels notably dehydrated, and feels unwell. She denies any tick bites this year. She denies any other sick contacts. No other modifying factors. Related Data Home Medications ?Medication ?Instructions ?Recorded ?Confirmed cholecalciferol (vitamin D3) 50 50 mcg PO DAILY 11/29/21 01/23/25 mcg (2,000 unit) capsule mometasone 0.1 % topical solution 1 applic topical DAILY PRN skin 12/29/22 01/23/25 irritation #60 mL estradiol 0.01% (0.1 mg/gram) 1 g vaginal .twice weekly #42.5 06/06/23 01/23/25 vaginal cream grams levothyroxine 50 mcg tablet 50 mcg PO DAILY #90 tab-caps 05/03/24 01/23/25 hydrochlorothiazide 12.5 mg tablet 12.5 mg PO QAM #90 tabs 06/02/24 01/23/25 pantoprazole 40 mg tablet,delayed 40 mg PO DAILY PRN GERD #90 06/05/24 01/23/25 release tab-caps losartan 100 mg tablet 100 mg PO DAILY #90 tab-caps 08/22/24 01/23/25 acetaminophen 500 mg tablet 1,000 mg (2 x 500 mg) PO TID #90 08/30/24 01/23/25 tabs ibuprofen 600 mg tablet 600 mg PO TID PRN pain #90 tabs 08/30/24 01/23/25 betamethasone dipropionate 0.05 % 1 applic topical BID PRN skin 11/21/24 01/23/25 topical cream irritation #45 grams bupropion HCl 150 mg tablet,12 hr 150 mg PO QAM #90 tabs 01/14/25 01/23/25 sustained-release Previous Rx's ?Medication ?Instructions ?Recorded mometasone 0.1 % topical solution 1 applic topical DAILY PRN skin 12/29/22 irritation #60 mL estradiol 0.01% (0.1 mg/gram) 1 g vaginal .twice weekly #42.5 06/06/23 vaginal cream grams levothyroxine 50 mcg tablet 50 mcg PO DAILY #90 tab-caps 05/03/24 hydrochlorothiazide 12.5 mg tablet 12.5 mg PO QAM #90 tabs 06/02/24 pantoprazole 40 mg tablet,delayed 40 mg PO DAILY PRN GERD #90 06/05/24 release tab-caps losartan 100 mg tablet 100 mg PO DAILY #90 tab-caps 08/22/24 acetaminophen 500 mg tablet 1,000 mg (2 x 500 mg) PO TID #90 08/30/24 tabs ibuprofen 600 mg tablet 600 mg PO TID PRN pain #90 tabs 08/30/24 betamethasone dipropionate 0.05 % 1 applic topical BID PRN skin 11/21/24 topical cream irritation #45 grams bupropion HCl 150 mg tablet,12 hr 150 mg PO QAM #90 tabs 01/14/25 sustained-release Allergies Allergy/AdvReac Type Severity Reaction Status Date / Time neomycin Allergy Unknown Other (See Verified 10/28/24 13:59 Comment) piperazine Allergy Unknown Hives Verified 10/28/24 13:59 Opioids - Morphine Analogues AdvReac Severe Psychosis Verified 10/28/24 13:59 [id number] Reductase AdvReac Mild MUSCLE PAIN Verified 10/28/24 13:59 Inhibitor (Wpzfndm-Tng-Qlz Reductase Inhibitor) General Stated Complaint: Fever BERTHA: 3 Exam Narrative Exam Narrative: 1.Const: Well-nourished, Well-developed, appearing stated age 2.Eyes: PERRL, no conjunctival injection, and symmetrical lids. 3.ENT: Atraumatic external nose and ears. Dry MM. Neck: Symmetric, trachea midline, No thyromegaly. Patient demonstrates good movement of cervical neck. There is no nuchal rigidity, no nuchal tenderness. Patient is able to flex the neck without any difficulty or significant pain. Negative Kernig's and Brudzinski sign. 4.CVS: +S1/S2, Peripheral pulses 2+ and equal in all extremities. Brisk capillary refill in all extremities. 5.RESP: Unlabored respiratory effort. Scattered occasional crackle. No wheezes. No rhonchi. 6.GI: Soft, Nontender/Nondistended, No hepatosplenomegaly. No guarding or rebound. 7.MSK: Normocephalic/Atraumatic, Extremities w/o deformity or ttp No cyanosis or clubbing, Normal movement of all extremities 8.Skin: Warm, Dry. No rashes or lesions. 9.Neuro: brazer repair and salvage II-XII grossly intact. Sensation grossly intact, no focal neurologic deficits. 10.Psych: (AAO) x3. Appropriate mood and affect Course Vital Signs Vital signs: Vital Signs Temperature 39.3 C H 01/23/25 13:56 Pulse 102 H 01/23/25 13:56 Respiratory Rate 18 01/23/25 13:56 Blood Pressure 140/50 L 01/23/25 13:56 Pulse Oximetry 96 01/23/25 13:56 Temperature 39.3 C H 01/23/25 13:56 Pulse 102 H 01/23/25 13:56 Respiratory Rate 18 01/23/25 13:56 Blood Pressure 140/50 L 01/23/25 13:56 Pulse Oximetry 96 01/23/25 13:56 Oxygen Delivery Method Room Air 01/23/25 13:56 Oxygen Flow Rate 0 01/23/25 13:56 Lab/Test Results Lab/Test Results: 01/23/25 13:54 Blood Blood Culture - Pending 01/23/25 13:54 Blood Blood Culture - Pending Medical Decision Making 79-year-old female with past medical history of hypertension, hypothyroidism, GERD, who presents today for feeling ill. Patient states that for the last 3 to 4 days she has had a fever with a Tmax of 103, she has had a cough, has not been drinking much, has noted significant darkening of her urine. She admits to nausea but denies any excessive vomiting. She admits to a very very mild headache, but denies any neck pain or stiffness. She did see her primary care provider today, who did perform basic blood work, chest x-ray which was read as negative for any evidence of pneumonia. Despite this she still feels notably dehydrated, and feels unwell. She denies any tick bites this year. She denies any other sick contacts. No other modifying factors. Exam demonstrates a fatigued appearing female, no nuchal rigidity or neck stiffness. No abdominal pain or tenderness. Scattered crackles on lung sounds. No pitting edema in the lower extremities. Chest x-ray was read as negative by radiology. Labs inconsistent with meningitis. Differential does include subtle pneumonia not seen on chest x-ray, less likely PE with infarct causing mild borderline hypoxemia with an O2 saturation between 90 to 94%, viral etiology, tickborne illness like Lyme,Babesiosis and ehrlichiosis, or anaplasmosis. We will gently rehydrate, get blood cultures, monitor closely and reassess. 4:22 PM Laboratory workup shows no elevated white count, but the patient does have lymphopenia, mild transaminitis, procalcitonin mildly elevated to 0.23, lactate normal, urinalysis was ordered outpatient, but it was mislabeled, so they are requesting new UA. We are still pending those results. COVID flu and RSV are negative. I am concerned for tickborne illness, particularly anaplasmosis. CT imaging was performed to rule out pneumonia after the negative chest x-ray, and no acute findings are noted. No evidence of PE. Due to the patient's age, her elevated heart rate and fever, concern for bacterial etiology, she does meet sepsis criteria. Additionally I do feel that antibiotic coverage is indicated. We will give Zosyn and doxycycline for MRSA coverage, tickborne illness coverage, and generalized gram-negative coverage. Discussed the case with hospitalist Dr. Guajardo, he agrees with the assessment and plan. I have extensively reviewed the treatment plan with the patient. I have addressed all patient concerns at this time. I have also discussed the plan with the admitting physician and they agree with the current assessment and plan and have agreed to assume responsibility for the patient. All parties demonstrate verbal understanding and agreement with our assessment and plan at this time. The documentation in this chart was dictated using [employer] dictation software. Please excuse any dictation errors. FINDINGS: Pulmonary Arteries: No evidence of filling defect to suggest pulmonary emboli. Mediastinum and Verenice: No dominant adenopathy or fluid collection. Pulmonary parenchyma: No consolidation or pulmonary edema. No ground-glass infiltrates. Smoothly marginated fatty density lesion is noted in the right upper lobe, consistent with a benign hamartoma. Small calcification within. Pleura: No effusion or pneumothorax. Heart: The heart is not dilated. No coronary artery calcifications are seen. Aorta: Thoracic aorta non-dilated. No dissection. Upper abdomen: No acute findings. Liver cysts again noted. Bones: Unremarkable for age. Tubes, Catheters, and Lines: None Soft tissues: Unremarkable. IMPRESSION: No evidence of pulmonary embolism or other acute abnormality. 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 Present on x-rays back to 2008. Quality:SDOH Health Related Social Needs: Health related social needs details none Critical Care Time Critical Care Time Critical Care Time: Yes Total Critical Care Time: 45 Attestation: Upon my evaluation, this patient had a high probability of imminent or life-threatening deterioration, which required my direct attention, intervention, and personal management. I have personally provided 45 minutes of critical care time exclusive of time spent on separately billable procedures. Time includes review of laboratory data, radiology results, discussion with consultants, and monitoring for potential decompensation. Interventions were performed as documented. PFSH All Active Problems (Updated 01/23/25 @ 16:24 by Nino Perez DO) Dehydration (Acute) Lymphopenia (Acute) Sepsis (Acute) Fever (Acute) Fever and chills (Acute) Sleep apnea (Acute) Decreased hearing of both ears (Acute) Quadriceps muscle strain (Acute) Sebaceous cyst (Acute) Vaginitis (Acute) Sacroiliac dysfunction (Acute) Tendinitis of right quadriceps tendon (Acute) Pes anserinus bursitis of left knee (Acute) Lumbar radiculopathy (Acute) Shoulder pain (Acute) Vertigo (Acute) Hypertension (Chronic) Tick bite of axillary region (Acute) Cough (Acute) Wrist pain (Acute) Chronic thumb pain (Acute) Sensorineural hearing loss of both ears (Acute) Decreased hearing (Acute) Arthralgia (Acute) Right leg pain (Acute) Left hip pain (Acute) Grief (Acute) Vitamin D deficiency (Chronic 07/08/11) Tubular adenoma (Chronic 11/28/17) Seborrheic keratosis (Chronic 04/18/17) RUQ abdominal pain (Chronic 06/19/17) Psoriasis (Chronic 01/18/18) Osteopenia (Chronic) DEXA 03: -1.3/-0.3/-0.1; DEXA 05: -1.8/-0.9/-1.1 Obstructive sleep apnea syndrome (Chronic) Sleep study showed moderate obstructive sleep apnea w/ some desaturation; no CPAP due to claustrophobia Neck pain (Chronic) DECREASED L BICEPS JERK; C5-6 NARROWING Medial epicondylitis of right elbow (Chronic 04/18/17) Knee pain (Chronic) PES ANSERINE BURSITIS; S/P TKR Joint pain (Chronic 04/29/12) HAND Irritable colon (Chronic) RECURRENT ABD PAIN; NEG GB Impaired fasting glucose (Chronic 07/04/11) Hypothyroidism (Chronic) CHRONIC THYROIDITIS, S/P BX '97 Hyperlipidemia (Chronic) LIPITOR RX Gastroesophageal reflux disease with esophagitis (Chronic) 97 GIRISH TEST POS; 07 EGD: GERD, NEG H. 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 Medical History (Updated 01/23/25 @ 16:24 by Nino Perez DO) Skin change URI (upper respiratory infection) Ganglion cyst of volar aspect of right wrist Medial epicondylitis of right elbow (04/18/17) Neck pain Stress due to illness of family member (05/24/16) pulmonary hypertension Depressive disorder GERD (gastroesophageal reflux disease) Hypothyroidism ASHLEIGH (obstructive sleep apnea) Surgical History (Updated 10/14/24 @ 09:00 by REY Gross) Arthrofibrosis of total knee arthroplasty s/p Left knee manipulation under anesthesia 11/29/23 S/P Left knee arthroscopic synovectomy: 08/30/2024 History of total left knee replacement (10/04/23) History of appendectomy History of hand surgery Replacement of total knee joint RIGHT KNEE REPAIR (~2011) TORN MINISCUS Hysterectomy, Laproscopic TOTAL; AGE 33. Colonoscopy - MAC (11/28/17) Family History Mother , 83 COPD (chronic obstructive pulmonary disease) Father , 65 Lung cancer Brain cancer Brother Psoriasis Maternal Grandfather No problems noted. Paternal Grandfather MS (multiple sclerosis) Maternal Grandmother Diabetes Paternal Grandmother Diabetes Son Essential hypertension Anxiety Hyperlipidemia Daughter Thyroid cancer Brother No problems noted. Social History Smoking/Tobacco Use Status: Never Second Hand Exposure: Yes Smoking risk assessment performed?: Yes Alcohol Intake: current Alcohol Intake frequency: holidays/special occasions only Alcohol type: wine Drug use: Never Substance use type: does not use Counseling given: No Counseling provided: none Caregiver/Support person: No Household members: none Housing: house Communication Needs: None Do you need help understanding health information?: Never Pets and animals: Yes Pets and animals: cat(s) Sexually active: No Do you think of yourself as: straight/heterosexual Current gender identity: female What is your relationship status?: How often do you talk on the phone with friends or family?: three or more times per week How often do you get together with friends or relatives?: three or more times per week How often do you attend rastafari or oriental orthodox services?: decline to answer Do you belong to any clubs or organized social groups?: yes Panel score (0-1 are the most socially isolated patients): 2 What type of physical activity do you participate in: aerobic Duration: < 15 minutes/day Frequency: 3-4 times per week Claudia/Christianity: Episcopalian Special claudia needs: No Seatbelt use: always Helmet use: No Drive 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
--- NOTE | 2025-01-23 14:15 | DI.CT_ITS ---
Exam(s) CT CHEST PE CTA EXAM: CT CHEST PE CTA CLINICAL HISTORY: hypoxic, cough, -cxr, eval for pneumonia/PE. TECHNIQUE: Imaging Protocol: Axial CT angiography was performed with multi- slice acquisition and multi-planar reconstructions as well as axial, coronal and sagittal MIP reconstructions. Computer aided detection (CAD) was utilized. CONTRAST MATERIAL: Intravenous: Omnipaque 350 Contrast volume:100 ml COMPARISON: CR CHEST 2 VIEWS PA,LAT from 10/01/2008 CT CHEST WITH CONTRAST from 10/16/[address] ABDOMEN PELVIS W from 09/30/[address] LUMBAR SPINE RECONS from 09/30/2023 CR XR CHEST 2V PA LATERAL from 01/23/2025 FINDINGS: Pulmonary Arteries: No evidence of filling defect to suggest pulmonary emboli. Mediastinum and Verenice: No dominant adenopathy or fluid collection. Pulmonary parenchyma: No consolidation or pulmonary edema. No ground-glass infiltrates. Smoothly marginated fatty density lesion is noted in the right upper lobe, consistent with a benign hamartoma. Small calcification within. Pleura: No effusion or pneumothorax. Heart: The heart is not dilated. No coronary artery calcifications are seen. Aorta: Thoracic aorta non-dilated. No dissection. Upper abdomen: No acute findings. Liver cysts again noted. Bones: Unremarkable for age. Tubes, Catheters, and Lines: None Soft tissues: Unremarkable. IMPRESSION: No evidence of pulmonary embolism or other acute abnormality. 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 Present on x-rays back to 2008. RADIATION DOSE DELIVERED: 55.22mGy.cm Total DLP DATA REPOSITORY: All CT scans at this facility are submitted to the National Radiology Data Registry (NRDR) Dose Index Registry (DIR) with the [employer] (ACR). RADIATION OPTIMIZATION: All CT scans at this facility use at least one of these dose optimization techniques: automated exposure control; mA and/or kV adjustment per patient size (includes targeted exams where dose is matched to clinical indication); or iterative reconstruction.
[2025-01-23] MEDS: Ketorolac 15 MG/ML VIAL IVP (14:17)
[2025-01-23] MEDS: Normal Saline 1,000 ML 1000 ML IV (14:18)
[2025-01-23 14:22] LABS: Lactate 1.1 mmol/L (<or=2.0)
[2025-01-23 14:25] LABS: Abs Immature Grans 0.02 10^3/uL (0.0-0.06); Absolute Basophil Count 0.02 10^3/uL (0.0-0.2); Absolute Eosinophil Count 0.01 10^3/uL (0.0-0.7); Absolute Lymphocyte Count 0.61 10^3/uL (1.2-3.4); Absolute Monocyte Count 0.31 10^3/uL (0.1-0.8); Absolute Neutrophil Count 5.11 10^3/uL (1.2-6.7); Basophils % 0.3 %; Eosinophils % 0.2 %; HCT 39.2 % (36.0-46.0); Immature Grans % 0.3 %; MCH 28.6 pg (27.0-33.0); MCHC 33.2 % (32.0-36.0); MCV 86 fL (80-95); Monocytes % 5.1 %; Neutrophils % 84.1 %; Platelet Count 144 10^3/uL (130-400); RBC 4.54 10^6/uL (3.93-5.22); RDW 12.8 % (11.7-14.6); RDW-SD 40.6 fL; WBC 6.08 10^3/uL (4.4-10.8)
[2025-01-23] MEDS: Omnipaque 350 MG/ML 100 ML BTL IJ (14:52)
[2025-01-23] MEDS: Normal Saline - Diluent 50 ML VIAL IJ (14:53)
[2025-01-23 15:00] LABS: COVID-19 PCR Negative (Negative); Influenza A PCR Negative (Negative); Influenza B PCR Negative (Negative); RSV PCR Negative (Negative)
[2025-01-23 15:01] LABS: Source Nasopharynx
[2025-01-23 15:13] LABS: Procalcitonin 0.23 ng/mL
[2025-01-23 16:26] LABS: Bilirubin Negative (Negative); Blood Large (Negative); Clarity Clear (Clear); Glucose Negative (Negative); Ketones 40 mg/dL (Negative); Leukocyte Esterase Negative (Negative); Nitrite Positive (Negative)
[2025-01-23] MEDS: PIPERACILLIN/TAZO 4.5 GM in Normal Saline 100 ML IVPB (16:30)
[2025-01-23 16:36] LABS: Bacteria Many HPF (Negative); Casts Negative LPF (Negative); Crystals Negative HPF (Negative); Epithelial Cells Few HPF (Negative); Mucus Trace (Negative)
[2025-01-23 16:37] LABS: C & S Indicated? C&S Done As Ordered
--- NOTE | 2025-01-23 16:37 | W.PM.HP.N ---
Date of service: 01/23/25 Time of Service: 18:09 Assessment and Plan Assessment and plan (1) Sepsis: Status: Acute Assessment and plan: Sepsis criteria met with tachycardia at 98 and fever at 39.3 source of infection most likely due to tick bite to the left axillary region versus urinary with urine showing positive nitrate Blood and urine cultures pending IV Zosyn and doxycycline Labs in the morning monitor laboratory markers (2) Dehydration: Status: Acute Assessment and plan: Slow IV hydration overnight. BMP in a.m. (3) Lymphopenia: Status: Acute Assessment and plan: Most likely due to tickborne illness as below; panel pending Also has mild transaminitis in the setting of 4 (4) Tick bite of axillary region: Status: Acute Assessment and plan: continue to monitor site (5) Fever: Status: Acute Assessment and plan: As needed acetaminophen Discussed with Dr. Enriquez (6) Hypertension: Status: Chronic Assessment and plan: Continue home medicine regimen (7) GERD (gastroesophageal reflux disease): Assessment and plan: Continue home medicine regimen (8) Hypothyroidism: Assessment and plan: Continue home medicine regimen (9) Hyperlipidemia: Status: Chronic Assessment and plan: Not currently on any statin therapy DVT prophylaxis with low molecular weight heparin Discussed with Dr. Enriquez History of Present Illness History of Present Illness Chief Complaint: fevers,malaise Narrative: This 79 years old female patient with medical history of hypertension hypothyroidism GERD presented to the ED at [facility] with complaints of malaise for the past 3 days, cough, fevers max 103. she was seen by her PCP who referred her to the emergency department. Patient reported headache with fevers, chills, night sweats, dizziness; also reporting working her garden consistently and having being bitten by a tick he the previous year, however worsening left axillary pain without obvious insect bite. On exam, annular erythema fading in the periphery was observed at the left axilla region. Patient denied chest pain, nausea, vomiting, diarrhea, or dysuria.Work-up in the ED was positive for lymphopenia, mild hyponatremia, Cr 1.1 w baseline at 0.9, mild transminitis, elevated lipids. Imaging was negative for acute findings.UA was positive for nitrite and blood, The patient was febrile and tachycardic but normotensive. The patient was admitted to the medical surgical floor by the hospitalist team for further management. Full code status confirmed. Review of Systems All systems reviewed & are unremarkable except as noted in HPI and below PFSH All Active Problems (Updated 01/23/25 @ 18:39 by Sarah Rodgers APRN) Systemic inflammatory response syndrome (SIRS) (Acute) Dehydration (Acute) Lymphopenia (Acute) Sepsis (Acute) Fever (Acute) Fever and chills (Acute) Sleep apnea (Acute) Decreased hearing of both ears (Acute) Quadriceps muscle strain (Acute) Sebaceous cyst (Acute) Vaginitis (Acute) Sacroiliac dysfunction (Acute) Tendinitis of right quadriceps tendon (Acute) Pes anserinus bursitis of left knee (Acute) Lumbar radiculopathy (Acute) Shoulder pain (Acute) Vertigo (Acute) Hypertension (Chronic) Tick bite of axillary region (Acute) Cough (Acute) Wrist pain (Acute) Chronic thumb pain (Acute) Sensorineural hearing loss of both ears (Acute) Decreased hearing (Acute) Arthralgia (Acute) Right leg pain (Acute) Left hip pain (Acute) Grief (Acute) Vitamin D deficiency (Chronic 07/08/11) Tubular adenoma (Chronic 11/28/17) Seborrheic keratosis (Chronic 04/18/17) RUQ abdominal pain (Chronic 06/19/17) Psoriasis (Chronic 01/18/18) Osteopenia (Chronic) DEXA 03: -1.3/-0.3/-0.1; DEXA 05: -1.8/-0.9/-1.1 Obstructive sleep apnea syndrome (Chronic) Sleep study showed moderate obstructive sleep apnea w/ some desaturation; no CPAP due to claustrophobia Neck pain (Chronic) DECREASED L BICEPS JERK; C5-6 NARROWING Medial epicondylitis of right elbow (Chronic 04/18/17) Knee pain (Chronic) PES ANSERINE BURSITIS; S/P TKR Joint pain (Chronic 04/29/12) HAND Irritable colon (Chronic) RECURRENT ABD PAIN; NEG GB Impaired fasting glucose (Chronic 07/04/11) Hypothyroidism (Chronic) CHRONIC THYROIDITIS, S/P BX '97 Hyperlipidemia (Chronic) LIPITOR RX Gastroesophageal reflux disease with esophagitis (Chronic) 97 GIRISH TEST POS; 07 EGD: GERD, NEG H. 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 Medical History (Updated 01/23/25 @ 18:39 by Sarah Rodgers APRN) Skin change URI (upper respiratory infection) Ganglion cyst of volar aspect of right wrist Medial epicondylitis of right elbow (04/18/17) Neck pain Stress due to illness of family member (05/24/16) pulmonary hypertension Depressive disorder GERD (gastroesophageal reflux disease) Hypothyroidism ASHLEIGH (obstructive sleep apnea) Surgical History (Updated 10/14/24 @ 09:00 by REY Gross) Arthrofibrosis of total knee arthroplasty s/p Left knee manipulation under anesthesia 11/29/23 S/P Left knee arthroscopic synovectomy: 08/30/2024 History of total left knee replacement (10/04/23) History of appendectomy History of hand surgery Replacement of total knee joint RIGHT KNEE REPAIR (~2011) TORN MINISCUS Hysterectomy, Laproscopic TOTAL; AGE 33. Colonoscopy - MAC (11/28/17) Family History Mother , 83 COPD (chronic obstructive pulmonary disease) Father , 65 Lung cancer Brain cancer Brother Psoriasis Maternal Grandfather No problems noted. Paternal Grandfather MS (multiple sclerosis) Maternal Grandmother Diabetes Paternal Grandmother Diabetes Son Essential hypertension Anxiety Hyperlipidemia Daughter Thyroid cancer Brother No problems noted. Social History Smoking/Tobacco Use Status: Never Second Hand Exposure: Yes Smoking risk assessment performed?: Yes Alcohol Intake: current Alcohol Intake frequency: holidays/special occasions only Alcohol type: wine Drug use: Never Substance use type: does not use Counseling given: No Counseling provided: none Caregiver/Support person: No Household members: none Housing: house Communication Needs: None Do you need help understanding health information?: Never Pets and animals: Yes Pets and animals: cat(s) Sexually active: No Do you think of yourself as: straight/heterosexual Current gender identity: female What is your relationship status?: How often do you talk on the phone with friends or family?: three or more times per week How often do you get together with friends or relatives?: three or more times per week How often do you attend mandaeism or hinduism services?: decline to answer Do you belong to any clubs or organized social groups?: yes Panel score (0-1 are the most socially isolated patients): 2 What type of physical activity do you participate in: aerobic Duration: < 15 minutes/day Frequency: 3-4 times per week Claudia/Buddhist: Bahai Special claudia needs: No Seatbelt use: always Helmet use: No Drive intox or ride w/intox sprinkling truck driver: No Additional Social history: UTAP Meds Allergies and Home Medications Allergies Allergy/AdvReac Type Severity Reaction Status Date / Time neomycin Allergy Unknown Other (See Verified 01/23/25 17:00 Comment) piperazine Allergy Unknown Hives Verified 01/23/25 17:00 Opioids - Morphine Analogues AdvReac Severe Psychosis Verified 01/23/25 17:00 Uanswai-AAX-ChO Reductase AdvReac Mild MUSCLE PAIN Verified 01/23/25 17:00 Inhibitor (Qpuyrme-Hyy-Bab Reductase Inhibitor) Home Medications ?Medication ?Instructions ?Recorded ?Confirmed ?Type cholecalciferol (vitamin D3) 50 50 mcg PO DAILY 11/29/21 01/23/25 History mcg (2,000 unit) capsule mometasone 0.1 % topical solution 1 applic topical DAILY PRN skin 12/29/22 01/23/25 Rx irritation #60 mL levothyroxine 50 mcg tablet 50 mcg PO DAILY #90 tab-caps 05/03/24 01/23/25 Rx hydrochlorothiazide 12.5 mg tablet 12.5 mg PO QAM #90 tabs 06/02/24 01/23/25 Rx pantoprazole 40 mg tablet,delayed 40 mg PO DAILY PRN GERD #90 06/05/24 01/23/25 Rx release tab-caps losartan 100 mg tablet 100 mg PO DAILY #90 tab-caps 08/22/24 01/23/25 Rx betamethasone dipropionate 0.05 % 1 applic topical BID PRN skin 11/21/24 01/23/25 Rx topical cream irritation #45 grams bupropion HCl 150 mg tablet,12 hr 150 mg PO QAM #90 tabs 01/14/25 01/23/25 Rx sustained-release Exam Narrative Exam Narrative: No acute distress, left axilla with red erythema/swelling, A&O X4, non-focal, S1, S2 regular, clear lungs, moves all the 4 extremities, non-acute abd, no CVA tenderness, Results Labs 01/23/25 14:13 Labs: Laboratory Results - last 24 hr 01/23/25 01/23/25 01/23/25 14:06 14:13 14:14 WBC 6.08 RBC 4.54 Hgb 13.0 Hct 39.2 MCV 86 MCH 28.6 MCHC 33.2 RDW 12.8 Plt Count 144 MPV Immature Gran % 0.3 Neutrophils % 84.1 Lymphocytes % 10.0 Monocytes % 5.1 Eosinophils % 0.2 Basophils % 0.3 Nucleated RBC % 0.0 Absolute Neutrophils 5.11 Absolute Lymphocytes 0.61 L Absolute Monocytes 0.31 Absolute Eosinophils 0.01 Absolute Basophils 0.02 VBG Lactate 1.1 Procalcitonin 0.23 Urine Color Urine Clarity Urine pH Ur Specific [place] Urine Protein Urine Ketones Urine Blood Urine Nitrite Urine Bilirubin Urine Urobilinogen Ur Leukocyte Esterase Urine RBC Urine WBC Ur Epithelial Cells Urine Crystals Urine Bacteria Urine Casts Urine Mucus Ur Culture Indicated? Urine Glucose COVID-19 Source Nasopharynx SARS-CoV-2 (PCR) Negative Influenza Type A (PCR) Negative Influenza Type B (PCR) Negative RSV (PCR) Negative 01/23/25 16:17 WBC RBC Hgb Hct MCV MCH MCHC RDW Plt Count MPV Immature Gran % Neutrophils % Lymphocytes % Monocytes % Eosinophils % Basophils % Nucleated RBC % Absolute Neutrophils Absolute Lymphocytes Absolute Monocytes Absolute Eosinophils Absolute Basophils VBG Lactate Procalcitonin Urine Color Yellow Urine Clarity Clear Urine pH 6.0 Ur Specific [place] 1.010 Urine Protein 100 H Urine Ketones 40 H Urine Blood Large H Urine Nitrite Positive H Urine Bilirubin Negative Urine Urobilinogen 1.0 H Ur Leukocyte Esterase Negative Urine RBC 10-20 H Urine WBC 5-10 Ur Epithelial Cells Few Urine Crystals Negative Urine Bacteria Many Urine Casts Negative Urine Mucus Trace Ur Culture Indicated? C&S Done As Ordered Urine Glucose Negative COVID-19 Source SARS-CoV-2 (PCR) Influenza Type A (PCR) Influenza Type B (PCR) RSV (PCR) Last Vital Signs Temp 37.8 C H 01/23/25 16:35 Pulse 93 H 01/23/25 16:35 Resp 18 01/23/25 16:35 BP 116/52 L 01/23/25 16:35 Pulse Ox 95 01/23/25 16:35 Time Spent Time spent with Patient: >75 minutes Time was spent: preparing to see the patient(eg.review tests), obtaining and/or reviewing separately otained hiistory, ordering medications,tests, procedures, referring, communicating with other health managed care specialist, indepentently interpreting results, counseling the patient and care coordination
[2025-01-23] MEDS: DOXYCYCLINE 100 MG in Normal Saline 100 ML IVPB (17:07)
--- NOTE | 2025-01-23 18:05 | W.PC.ACHO ---
Registration Status: ADM IN Primary Language: Preferred Language: Macedonian ED Information & Data Chief Complaint Fever 01/23/25 15:19 Chief Complaint Fever 01/23/25 14:16 Triage Note pt has been having fevers at 01/23/25 13:56 home X5 days, responsive to Tylenol. PCP instructed pt to come to ER for iv fluids Medical / Surgical History (Last Reviewed 08/30/24 @ 12:02 by Ysabel Hartley) Skin change URI (upper respiratory infection) Ganglion cyst of volar aspect of right wrist Medial epicondylitis of right elbow (04/18/17) Neck pain Stress due to illness of family member (05/24/16) Depressive disorder GERD (gastroesophageal reflux disease) Hypothyroidism ASHLEIGH (obstructive sleep apnea) (Last Updated 10/14/24 @ 09:00 by REY Gross) Arthrofibrosis of total knee arthroplasty History of total left knee replacement (10/04/23) History of appendectomy History of hand surgery Replacement of total knee joint KNEE REPAIR (~2011) Hysterectomy, Laproscopic Colonoscopy - MAC (11/28/17) Most Recent Vital Signs Temperature 37.1 C 01/23/25 17:24 Temperature Source Oral 01/23/25 16:35 Pulse 95 H 01/23/25 17:24 Pulse Rhythm Irregular 01/23/25 17:24 Respiratory Rate 18 01/23/25 17:24 Respiratory Effort Normal 01/23/25 17:24 Respiratory Depth Normal 01/23/25 17:24 Respiratory Pattern Normal 01/23/25 17:24 Blood Pressure 123/59 L 01/23/25 17:24 Blood Pressure Mean 71 01/23/25 17:00 Blood Pressure Position Supine 01/23/25 16:35 Pulse Oximetry 98 01/23/25 17:24 Oxygen Delivery Method Room Air 01/23/25 17:24 Oxygen Flow Rate 0 01/23/25 17:24 Pain Level 0 01/23/25 15:19 Allergies neomycin Allergy (Unknown, Verified 01/23/25 17:00) Other (See Comment) unknown piperazine Allergy (Unknown, Verified 01/23/25 17:00) Hives Opioids - Morphine Analogues Adverse Reaction (Severe, Verified 01/23/25 17:00) Psychosis severe personality changes Xljfbkd-SIC-FxN Reductase Inhibitor (Usdojhn-Vgh-Jum Reductase Inhibitor) Adverse Reaction (Mild, Verified 01/23/25 17:00) MUSCLE PAIN Precautions Isolation PUI 01/23/25 15:19 IV IV Catheter Type [Left Saline Lock Antecubital] IV Catheter Gauge [Left 18 Antecubital] Diagnostics 01/23/25 01/23/25 01/23/25 Range/Units 16:17 16:17 16:17 WBC (4.4-10.8) 10^3/uL RBC (3.93-5.22) 10^6/uL Hgb (11.2-15.7) g/dL Hct (36.0-46.0) % MCV (80-95) fL MCH (27.0-33.0) pg MCHC (32.0-36.0) % RDW (11.7-14.6) % Plt Count (130-400) 10^3/uL MPV (8.0-11.0) fL Immature Gran % % Neutrophils % % Lymphocytes % % Monocytes % % Eosinophils % % Basophils % % Nucleated RBC % (0.0-0.3) % Absolute Neutrophils (1.2-6.7) 10^3/uL Absolute Lymphocytes (1.2-3.4) 10^3/uL Absolute Monocytes (0.1-0.8) 10^3/uL Absolute Eosinophils (0.0-0.7) 10^3/uL Absolute Basophils (0.0-0.2) 10^3/uL VBG Lactate (<or=2.0) mmol/L Procalcitonin ng/mL Urine Color (Yellow) Urine Clarity (Clear) Urine pH (5-8) Ur Specific [place] (1.005-1.025) Urine Protein (Neg-Trace) mg/dL Urine Ketones (Negative) mg/dL Urine Blood (Negative) Urine Nitrite (Negative) Urine Bilirubin (Negative) Urine Urobilinogen (Up to 0.2) mg/dL Ur Leukocyte Esterase (Negative) Urine RBC Urine WBC Ur Epithelial Cells Urine Crystals Urine Bacteria Urine Casts Negative Urine Mucus Trace Cancelled Urine Other Cancelled Ur Culture Indicated? C&S Done As Ordered Cancelled Urine Glucose Negative (Negative) mg/dL B. divergens/MO-1 PCR Babesia duncani (PCR) Babesia microti DNA PCR Lyme Disease Antibody COVID-19 Source SARS-CoV-2 (PCR) (Negative) E.chaffeensis DNA (PCR) E.ewingii/canis DNA PCR E.muris eauclairensis (PCR) Influenza Type A (PCR) (Negative) Influenza Type B (PCR) (Negative) RSV (PCR) (Negative) A. phagocytophilum (PCR) Blood B. miyamotoi (PCR) 01/23/25 01/23/25 01/23/25 Range/Units 16:17 16:17 16:17 WBC (4.4-10.8) 10^3/uL RBC (3.93-5.22) 10^6/uL Hgb (11.2-15.7) g/dL Hct (36.0-46.0) % MCV (80-95) fL MCH (27.0-33.0) pg MCHC (32.0-36.0) % RDW (11.7-14.6) % Plt Count (130-400) 10^3/uL MPV (8.0-11.0) fL Immature Gran % % Neutrophils % % Lymphocytes % % Monocytes % % Eosinophils % % Basophils % % Nucleated RBC % (0.0-0.3) % Absolute Neutrophils (1.2-6.7) 10^3/uL Absolute Lymphocytes (1.2-3.4) 10^3/uL Absolute Monocytes (0.1-0.8) 10^3/uL Absolute Eosinophils (0.0-0.7) 10^3/uL Absolute Basophils (0.0-0.2) 10^3/uL VBG Lactate (<or=2.0) mmol/L Procalcitonin ng/mL Urine Color (Yellow) Urine Clarity (Clear) Urine pH (5-8) Ur Specific [place] (1.005-1.025) Urine Protein (Neg-Trace) mg/dL Urine Ketones (Negative) mg/dL Urine Blood (Negative) Urine Nitrite (Negative) Urine Bilirubin (Negative) Urine Urobilinogen (Up to 0.2) mg/dL Ur Leukocyte Esterase (Negative) Urine RBC Urine WBC Ur Epithelial Cells Few Urine Crystals Negative Cancelled Urine Bacteria Many Cancelled Urine Casts Cancelled Urine Mucus Urine Other Ur Culture Indicated? Urine Glucose (Negative) mg/dL B. divergens/MO-1 PCR Babesia duncani (PCR) Babesia microti DNA PCR Lyme Disease Antibody COVID-19 Source SARS-CoV-2 (PCR) (Negative) E.chaffeensis DNA (PCR) E.ewingii/canis DNA PCR E.muris eauclairensis (PCR) Influenza Type A (PCR) (Negative) Influenza Type B (PCR) (Negative) RSV (PCR) (Negative) A. phagocytophilum (PCR) Blood B. miyamotoi (PCR) 01/23/25 01/23/25 01/23/25 Range/Units 16:17 16:17 16:17 WBC (4.4-10.8) 10^3/uL RBC (3.93-5.22) 10^6/uL Hgb (11.2-15.7) g/dL Hct (36.0-46.0) % MCV (80-95) fL MCH (27.0-33.0) pg MCHC (32.0-36.0) % RDW (11.7-14.6) % Plt Count (130-400) 10^3/uL MPV (8.0-11.0) fL Immature Gran % % Neutrophils % % Lymphocytes % % Monocytes % % Eosinophils % % Basophils % % Nucleated RBC % (0.0-0.3) % Absolute Neutrophils (1.2-6.7) 10^3/uL Absolute Lymphocytes (1.2-3.4) 10^3/uL Absolute Monocytes (0.1-0.8) 10^3/uL Absolute Eosinophils (0.0-0.7) 10^3/uL Absolute Basophils (0.0-0.2) 10^3/uL VBG Lactate (<or=2.0) mmol/L Procalcitonin ng/mL Urine Color Yellow (Yellow) Urine Clarity Clear (Clear) Urine pH 6.0 (5-8) Ur Specific [place] 1.010 (1.005-1.025) Urine Protein 100 H (Neg-Trace) mg/dL Urine Ketones 40 H (Negative) mg/dL Urine Blood Large H (Negative) Urine Nitrite Positive H (Negative) Urine Bilirubin Negative (Negative) Urine Urobilinogen 1.0 H (Up to 0.2) mg/dL Ur Leukocyte Esterase Negative (Negative) Urine RBC 10-20 H Cancelled Urine WBC 5-10 Cancelled Ur Epithelial Cells Cancelled Urine Crystals Urine Bacteria Urine Casts Urine Mucus Urine Other Ur Culture Indicated? Urine Glucose (Negative) mg/dL B. divergens/MO-1 PCR Babesia duncani (PCR) Babesia microti DNA PCR Lyme Disease Antibody COVID-19 Source SARS-CoV-2 (PCR) (Negative) E.chaffeensis DNA (PCR) E.ewingii/canis DNA PCR E.muris eauclairensis (PCR) Influenza Type A (PCR) (Negative) Influenza Type B (PCR) (Negative) RSV (PCR) (Negative) A. phagocytophilum (PCR) Blood B. miyamotoi (PCR) 01/23/25 01/23/25 01/23/25 Range/Units 14:14 14:13 14:06 WBC 6.08 (4.4-10.8) 10^3/uL RBC 4.54 (3.93-5.22) 10^6/uL Hgb 13.0 (11.2-15.7) g/dL Hct 39.2 (36.0-46.0) % MCV 86 (80-95) fL MCH 28.6 (27.0-33.0) pg MCHC 33.2 (32.0-36.0) % RDW 12.8 (11.7-14.6) % Plt Count 144 (130-400) 10^3/uL MPV (8.0-11.0) fL Immature Gran % 0.3 % Neutrophils % 84.1 % Lymphocytes % 10.0 % Monocytes % 5.1 % Eosinophils % 0.2 % Basophils % 0.3 % Nucleated RBC % 0.0 (0.0-0.3) % Absolute Neutrophils 5.11 (1.2-6.7) 10^3/uL Absolute Lymphocytes 0.61 L (1.2-3.4) 10^3/uL Absolute Monocytes 0.31 (0.1-0.8) 10^3/uL Absolute Eosinophils 0.01 (0.0-0.7) 10^3/uL Absolute Basophils 0.02 (0.0-0.2) 10^3/uL VBG Lactate 1.1 (<or=2.0) mmol/L Procalcitonin 0.23 ng/mL Urine Color (Yellow) Urine Clarity (Clear) Urine pH (5-8) Ur Specific [place] (1.005-1.025) Urine Protein (Neg-Trace) mg/dL Urine Ketones (Negative) mg/dL Urine Blood (Negative) Urine Nitrite (Negative) Urine Bilirubin (Negative) Urine Urobilinogen (Up to 0.2) mg/dL Ur Leukocyte Esterase (Negative) Urine RBC Urine WBC Ur Epithelial Cells Urine Crystals Urine Bacteria Urine Casts Urine Mucus Urine Other Ur Culture Indicated? Urine Glucose (Negative) mg/dL B. divergens/MO-1 PCR Pending Babesia duncani (PCR) Pending Babesia microti DNA PCR Pending Lyme Disease Antibody Pending COVID-19 Source Nasopharynx SARS-CoV-2 (PCR) Negative (Negative) E.chaffeensis DNA (PCR) Pending E.ewingii/canis DNA PCR Pending E.muris eauclairensis (PCR) Pending Influenza Type A (PCR) Negative (Negative) Influenza Type B (PCR) Negative (Negative) RSV (PCR) Negative (Negative) A. phagocytophilum (PCR) Pending Blood B. miyamotoi (PCR) Pending 01/23/25 16:17 Urine Culture - Pending Urine - Clean Catch 01/23/25 14:13 Blood Culture - Pending Blood 01/23/25 13:54 Blood Culture - Pending Blood Intake and Output - 24 Hour Total 01/23/25 13:37 thru 01/23/25 17:24 Intake Total 1100 Balance 1100 Weight 58.967 kg Intake: IV 1100 Other: Urine Appearance Clear Falls Risk Assessment History of Falls No History 01/23/25 17:24 Contributing Factors No Factors 01/23/25 17:24 Ambulatory Aids Independent 01/23/25 17:24 Tubes/Lines W/no contributing factors 01/23/25 17:24 Gait Evaluation No gait disturbance 01/23/25 17:24 Cognition No cognitive impairment 01/23/25 17:24 Fall Total Score 10 01/23/25 17:24 Level of Risk Standard/Low Risk 01/23/25 17:24 v v v v v v v v v Sending and/or Receiving Nurses: Please use comment section below to note any information pertinent to the patient hand-off not included above. Information / Comments: Large bullseye rash found in left axillary space. Report received from: Report received from MARCIAL Arce RN. First report called at 17:02, called back at 17:11.
[2025-01-23] MEDS: Acetaminophen 325 MG TAB 650 MG PO (20:00)
[2025-01-23] MEDS: Normal Saline 1,000 ML 75 ML IV (20:01)
[2025-01-24] VITALS (8 sets, daily range): BP systolic 106–144; BP diastolic 52–69; PULSE 68–99; RESP 14–18; TEMP 36–38.6; O2SAT 93–98
[2025-01-24] MEDS: Acetaminophen 325 MG TAB 650 MG PO ×2 (03:47→14:06)
[2025-01-24] MEDS: DOXYCYCLINE 100 MG in Normal Saline 100 ML IVPB ×2 (05:19→18:00)
[2025-01-24] MEDS: Levothyroxine 50 MCG TAB PO (05:23)
[2025-01-24 06:45] LABS: ESR 19 mm/hr (0-30)
[2025-01-24 06:57] LABS: Abs Immature Grans 0.01 10^3/uL (0.0-0.06); Absolute Basophil Count 0.01 10^3/uL (0.0-0.2); Absolute Eosinophil Count 0.02 10^3/uL (0.0-0.7); Absolute Lymphocyte Count 0.88 10^3/uL (1.2-3.4); Absolute Monocyte Count 0.23 10^3/uL (0.1-0.8); Absolute Neutrophil Count 4.45 10^3/uL (1.2-6.7); Basophils % 0.2 %; Eosinophils % 0.4 %; HCT 30.9 % (36.0-46.0); HGB 10.4 g/dL (11.2-15.7); Immature Grans % 0.2 %; Lymphocytes % 15.7 %; MCH 29.3 pg (27.0-33.0); MCHC 33.7 % (32.0-36.0); MCV 87 fL (80-95); Monocytes % 4.1 %; Neutrophils % 79.4 %; RBC 3.55 10^6/uL (3.93-5.22); RDW 12.9 % (11.7-14.6); RDW-SD 41.3 fL
[2025-01-24 07:12] LABS: ALT 40 U/L (14-59); AST 34 U/L (15-37); Albumin 2.7 g/dL (3.4-5.0); Alkaline Phosphatase 106 U/L (46-116); Anion Gap 9.7 mmol/L (3-11); BUN 23 mg/dL (7-18); Bilirubin, Total 0.8 mg/dL (0.2-1.0); CO2 25.3 mmol/L (21.0-32.0); CREATININE 0.8 mg/dL (0.55-1.02); Calcium 8.2 mg/dL (8.5-10.1); Chloride 102 mmol/L (98-107); Glucose 109 mg/dL (74-106); Potassium 3.2 mmol/L (3.5-5.1); Sodium 137 mmol/L (136-145); Total Protein 6.1 g/dL (6.4-8.2)
[2025-01-24] MEDS: buPROPion-CR 150 MG TABCR PO (07:35)
[2025-01-24] MEDS: Cholecalciferol (Vitamin D3) 1,000 UNIT TAB 2000 UNITS PO (07:35)
[2025-01-24] MEDS: hydroCHLOROthiazide 12.5 MG TAB PO (07:36)
[2025-01-24] MEDS: Losartan 50 MG TAB 100 MG PO (07:36)
[2025-01-24 07:39] LABS: Platelet Count 116 10^3/uL (130-400)
--- NOTE | 2025-01-24 08:26 | RESPIRATORY ---
Spoke with patient about ASHLEIGH diagnosis and she advised she had a previous sleep study and was using a dental appliance but due to issues with the appliance she stopped using.
--- NOTE | 2025-01-24 08:35 | INITIAL_ITS ---
Date of service: 01/24/25 Time of Service: 08:37 Care Management Initial Assmt Initial Assessment Reason for Hospitalization: Sepsis Functional Status/Living Situation Patient Presentation: Nyla was lying in bed, and visiting with her daughter - Tommy, when CM arrived. She presented to the ED for feeling ill. Nyla was pleasant and willing to engage in conversation. Per Nyla, she is living alone, with her cat, in [place]. She is independent with ADL's at baseline, including driving. She enjoys outdoor activities and reports she is very active. Nyla is not connected to any community service organizations and declines the need for commuity support, at this time. CM will continue to follow. 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 Medications Medication Management: No Issues/Barriers identified Advance Directives Advance Directives: Do you have an Advance Directive: Y , 10:28 AD On File at [facility]: Y 06/19/24, 10:28 Date Asked 01/28/20 06/19/24, 10:28 AD Date Reviewed 01/29/24 11/07/24, 09:08 COLST On File at [facility] No 06/19/24, :28 COLST Date Scanned Code Status Resuscitation Status Full Code Portal Pt does not currently have a portal and education provided: Yes Insurance Coverage/Financial Issues Insurance: Medicare Part A & B - [id number] [facility] - [id number] Care Team Visit Care Team Role Provider Type Sarah Rodgers APRN MD [facility] STAFF PHYSICIAN Suzanne Bunn MD, [place] Primary Care Provider , [facility] Nino Perez DO Emergency Provider [facility] STAFF PHYSICIAN Brant Enriquez Admit Provider [facility] STAFF PHYSICIAN Attending Provider Discharge Potential Discharge Needs: PT Evaluation and PCP F/U Appt Anticipated Barriers to Discharge: Medical Status Patient/Family Education Needs: Review discharge instructions, discuss Ask Me Three Transportation: Private vehicle Plan: Anticipate, Nyla will be discharged home, once medically ready. She will follow up with her community provider and continue per her plan of care. Nyla will transport via private vehilcle by family. Social Determinants of Health Screening Will the Patient Participate in the Screening?: Unable to obtain PFSH All Active Problems (Updated 01/23/25 @ 18:39 by Sarah Rodgers APRN) Systemic inflammatory response syndrome (SIRS) (Acute) Dehydration (Acute) Lymphopenia (Acute) Sepsis (Acute) Fever (Acute) Fever and chills (Acute) Sleep apnea (Acute) Decreased hearing of both ears (Acute) Quadriceps muscle strain (Acute) Sebaceous cyst (Acute) Vaginitis (Acute) Sacroiliac dysfunction (Acute) Tendinitis of right quadriceps tendon (Acute) Pes anserinus bursitis of left knee (Acute) Lumbar radiculopathy (Acute) Shoulder pain (Acute) Vertigo (Acute) Hypertension (Chronic) Tick bite of axillary region (Acute) Cough (Acute) Wrist pain (Acute) Chronic thumb pain (Acute) Sensorineural hearing loss of both ears (Acute) Decreased hearing (Acute) Arthralgia (Acute) Right leg pain (Acute) Left hip pain (Acute) Grief (Acute) Vitamin D deficiency (Chronic 07/08/11) Tubular adenoma (Chronic 11/28/17) Seborrheic keratosis (Chronic 04/18/17) RUQ abdominal pain (Chronic 06/19/17) Psoriasis (Chronic 01/18/18) Osteopenia (Chronic) DEXA 03: -1.3/-0.3/-0.1; DEXA 05: -1.8/-0.9/-1.1 Obstructive sleep apnea syndrome (Chronic) Sleep study showed moderate obstructive sleep apnea w/ some desaturation; no CPAP due to claustrophobia Neck pain (Chronic) DECREASED L BICEPS JERK; C5-6 NARROWING Medial epicondylitis of right elbow (Chronic 04/18/17) Knee pain (Chronic) PES ANSERINE BURSITIS; S/P TKR Joint pain (Chronic 04/29/12) HAND Irritable colon (Chronic) RECURRENT ABD PAIN; NEG GB Impaired fasting glucose (Chronic 07/04/11) Hypothyroidism (Chronic) CHRONIC THYROIDITIS, S/P BX '97 Hyperlipidemia (Chronic) LIPITOR RX Gastroesophageal reflux disease with esophagitis (Chronic) 97 GIRISH TEST POS; 07 EGD: GERD, NEG H. 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 Medical History (Updated 01/23/25 @ 18:39 by Sarah Rodgers APRN) Skin change URI (upper respiratory infection) Ganglion cyst of volar aspect of right wrist Medial epicondylitis of right elbow (04/18/17) Neck pain Stress due to illness of family member (05/24/16) pulmonary hypertension Depressive disorder GERD (gastroesophageal reflux disease) Hypothyroidism ASHLEIGH (obstructive sleep apnea) Surgical History (Updated 10/14/24 @ 09:00 by REY Gross) Arthrofibrosis of total knee arthroplasty s/p Left knee manipulation under anesthesia 11/29/23 S/P Left knee arthroscopic synovectomy: 08/30/2024 History of total left knee replacement (10/04/23) History of appendectomy History of hand surgery Replacement of total knee joint RIGHT KNEE REPAIR (~2011) TORN MINISCUS Hysterectomy, Laproscopic TOTAL; AGE 33. Colonoscopy - MAC (11/28/17) Family History Mother , 83 COPD (chronic obstructive pulmonary disease) Father , 65 Lung cancer Brain cancer Brother Psoriasis Maternal Grandfather No problems noted. Paternal Grandfather MS (multiple sclerosis) Maternal Grandmother Diabetes Paternal Grandmother Diabetes Son Essential hypertension Anxiety Hyperlipidemia Daughter Thyroid cancer Brother No problems noted. Social History Smoking/Tobacco Use Status: Never Second Hand Exposure: Yes Smoking risk assessment performed?: Yes Alcohol Intake: current Alcohol Intake frequency: holidays/special occasions only Alcohol type: wine Drug use: Never Substance use type: does not use Counseling given: No Counseling provided: none Caregiver/Support person: No Household members: none Housing: house Communication Needs: None Do you need help understanding health information?: Never Pets and animals: Yes Pets and animals: cat(s) Sexually active: No Do you think of yourself as: straight/heterosexual Current gender identity: female What is your relationship status?: How often do you talk on the phone with friends or family?: three or more times per week How often do you get together with friends or relatives?: three or more times per week How often do you attend voodoo or holiness services?: decline to answer Do you belong to any clubs or organized social groups?: yes Panel score (0-1 are the most socially isolated patients): 2 What type of physical activity do you participate in: aerobic Duration: < 15 minutes/day Frequency: 3-4 times per week Claudia/Episcopal: Episcopal Special claudia needs: No Seatbelt use: always Helmet use: No Drive intox or ride w/intox laundry route driver: No Additional Social history: UTAP Readmission Within the Past 30 Days Yes or No: No
[2025-01-24] MEDS: PIPERACILLIN/TAZO 3.375 GM in Normal Saline 50 ML IVPB (11:15)
[2025-01-24 11:31] LABS: Lyme Ab w Rflx to Lyme Confirm Positive (Negative)
--- NOTE | 2025-01-24 11:31 | CHAPLAIN ---
Nyla was sitting up in bed when I visited. She was was pleasant and engaged in a conversation. Her IV was beeping and I let nursing know. I explained my role and offered support.
--- NOTE | 2025-01-24 11:56 | NUR.NOTE ---
Nursing Note: Reviewed documentation by Naima Veras, student GEOSCIENTIST. Agree with her findings.
[2025-01-24 13:38] LABS: Lyme IgG Ab Positive (Negative); Lyme IgM Ab Positive (Negative)
--- NOTE | 2025-01-24 13:42 | PGE_ITS ---
Date of Service Date of service: 01/24/25 Time of Service: 13:42 Assessment and Plan Assessment and plan (1) Sepsis: Status: Acute Assessment and plan: On admission sepsis criteria met with tachycardia at 98 and fever at 39.3 source of infection most likely due to tick bite to the left axillary region versus urinary with urine showing positive nitrate Blood cultures pending Urine grew E. coli Ongoing IV Zosyn and doxycycline Labs in the morning continue to trendr laboratory markers Elevated CRP (2) Positive Lyme disease serology: Status: Acute Assessment and plan: Lyme panel positive and as above (3) Urinary tract infectious disease: Status: Resolved Assessment and plan: Positive E. coli in the urine culture Continue Zosyn until blood culture results (4) Dehydration: Status: Acute Assessment and plan: Slow IV hydration overnight was discontinued; Creatinine at 0.8 Will encourage oral hydration BMP in a.m. (5) Lymphopenia: Status: Acute Assessment and plan: Most likely due to tickborne illness as below; panel pending Also has mild transaminitis in the setting of 4 (6) Tick bite of axillary region: Status: Acute Assessment and plan: continue to monitor site -remains painful but improving central induration and redness (7) Fever: Status: Acute Assessment and plan: On ongoing fevers overnight continue as needed acetaminophen (8) Hypertension: Status: Chronic Assessment and plan: home medicine regimen (9) GERD (gastroesophageal reflux disease): Assessment and plan: On oral PPI PRN at home In the setting of acute hospital stay, significant drop in H&H overnight will transition to IV PPI, until OC stool results protonix 40 mg IV daily (10) Hypothyroidism: Assessment and plan: Ongoing home medicine regimen (11) Hyperlipidemia: Status: Chronic Assessment and plan: Not currently on any statin therapy DVT prophylaxis with low molecular weight heparin not initiated , but in the setting of Discussed with Dr. Robb (12) Anemia: Status: Chronic Assessment and plan: In the setting of positive Lyme disease as well as dilutional Hemoglobin was 13 and is now 10.4 144 now 116 MCV was 0.61 now 0.88 Nevertheless obtain stool for occult blood (13) Thrombocytopenia: Status: Chronic Assessment and plan: As above Lovenox not initiated We will do TEDS for DVT prophylaxis Discussed with Dr. Robb Subjective Subjective Patient reports: no new complaints, tolerating liquids well, tolerating a regular diet, voiding w/o difficulty, bowel movement (01/23) and fever; denies diarrhea, blood in stool, nausea, vomiting or shortness of breath Exam Narrative Exam Narrative: No acute distress, left axilla with red erythema/swelling/tenderness no limited range of motion, A&O X4, no neurological focal deficit, S1, S2 regular, clear lungs, moves all the 4 extremities, non-acute abd, no CVA tenderness, Objective Last Vital Signs Temp 36.5 C 01/24/25 11:09 Pulse 75 01/24/25 11:09 Resp 14 01/24/25 11:09 BP 119/56 L 01/24/25 11:09 Pulse Ox 93 01/24/25 11:09 Laboratory Results - last 24 hr 01/23/25 01/23/25 01/23/25 14:06 14:13 14:14 WBC 6.08 RBC 4.54 Hgb 13.0 Hct 39.2 MCV 86 MCH 28.6 MCHC 33.2 RDW 12.8 Plt Count 144 MPV Immature Gran % 0.3 Neutrophils % 84.1 Lymphocytes % 10.0 Monocytes % 5.1 Eosinophils % 0.2 Basophils % 0.3 Nucleated RBC % 0.0 Absolute Neutrophils 5.11 Absolute Lymphocytes 0.61 L Absolute Monocytes 0.31 Absolute Eosinophils 0.01 Absolute Basophils 0.02 ESR VBG Lactate 1.1 Sodium Potassium Chloride Carbon Dioxide Anion Gap BUN Creatinine Est GFR (CKD-EPI 2020) Glucose Calcium Total Bilirubin AST ALT Alkaline Phosphatase C-Reactive Protein Total Protein Albumin Procalcitonin 0.23 Urine Color Urine Clarity Urine pH Ur Specific [place] Urine Protein Urine Ketones Urine Blood Urine Nitrite Urine Bilirubin Urine Urobilinogen Ur Leukocyte Esterase Urine RBC Urine WBC Ur Epithelial Cells Urine Crystals Urine Bacteria Urine Casts Urine Mucus Urine Other Ur Culture Indicated? Urine Glucose Lyme Disease Antibody Positive A COVID-19 Source Nasopharynx SARS-CoV-2 (PCR) Negative Influenza Type A (PCR) Negative Influenza Type B (PCR) Negative RSV (PCR) Negative 01/23/25 01/23/25 01/23/25 16:17 16:17 16:17 WBC RBC Hgb Hct MCV MCH MCHC RDW Plt Count MPV Immature Gran % Neutrophils % Lymphocytes % Monocytes % Eosinophils % Basophils % Nucleated RBC % Absolute Neutrophils Absolute Lymphocytes Absolute Monocytes Absolute Eosinophils Absolute Basophils ESR VBG Lactate Sodium Potassium Chloride Carbon Dioxide Anion Gap BUN Creatinine Est GFR (CKD-EPI 2020) Glucose Calcium Total Bilirubin AST ALT Alkaline Phosphatase C-Reactive Protein Total Protein Albumin Procalcitonin Urine Color Yellow Urine Clarity Clear Urine pH 6.0 Ur Specific [place] 1.010 Urine Protein 100 H Urine Ketones 40 H Urine Blood Large H Urine Nitrite Positive H Urine Bilirubin Negative Urine Urobilinogen 1.0 H Ur Leukocyte Esterase Negative Urine RBC Cancelled 10-20 H Urine WBC Cancelled 5-10 Ur Epithelial Cells Cancelled Urine Crystals Urine Bacteria Urine Casts Urine Mucus Urine Other Ur Culture Indicated? Urine Glucose Lyme Disease Antibody COVID-19 Source SARS-CoV-2 (PCR) Influenza Type A (PCR) Influenza Type B (PCR) RSV (PCR) 01/23/25 01/23/25 01/23/25 16:17 16:17 16:17 WBC RBC Hgb Hct MCV MCH MCHC RDW Plt Count MPV Immature Gran % Neutrophils % Lymphocytes % Monocytes % Eosinophils % Basophils % Nucleated RBC % Absolute Neutrophils Absolute Lymphocytes Absolute Monocytes Absolute Eosinophils Absolute Basophils ESR VBG Lactate Sodium Potassium Chloride Carbon Dioxide Anion Gap BUN Creatinine Est GFR (CKD-EPI 2020) Glucose Calcium Total Bilirubin AST ALT Alkaline Phosphatase C-Reactive Protein Total Protein Albumin Procalcitonin Urine Color Urine Clarity Urine pH Ur Specific [place] Urine Protein Urine Ketones Urine Blood Urine Nitrite Urine Bilirubin Urine Urobilinogen Ur Leukocyte Esterase Urine RBC Urine WBC Ur Epithelial Cells Few Urine Crystals Cancelled Negative Urine Bacteria Cancelled Many Urine Casts Cancelled Urine Mucus Urine Other Ur Culture Indicated? Urine Glucose Lyme Disease Antibody COVID-19 Source SARS-CoV-2 (PCR) Influenza Type A (PCR) Influenza Type B (PCR) RSV (PCR) 01/23/25 01/23/25 01/23/25 16:17 16:17 16:17 WBC RBC Hgb Hct MCV MCH MCHC RDW Plt Count MPV Immature Gran % Neutrophils % Lymphocytes % Monocytes % Eosinophils % Basophils % Nucleated RBC % Absolute Neutrophils Absolute Lymphocytes Absolute Monocytes Absolute Eosinophils Absolute Basophils ESR VBG Lactate Sodium Potassium Chloride Carbon Dioxide Anion Gap BUN Creatinine Est GFR (CKD-EPI 2020) Glucose Calcium Total Bilirubin AST ALT Alkaline Phosphatase C-Reactive Protein Total Protein Albumin Procalcitonin Urine Color Urine Clarity Urine pH Ur Specific [place] Urine Protein Urine Ketones Urine Blood Urine Nitrite Urine Bilirubin Urine Urobilinogen Ur Leukocyte Esterase Urine RBC Urine WBC Ur Epithelial Cells Urine Crystals Urine Bacteria Urine Casts Negative Urine Mucus Cancelled Trace Urine Other Cancelled Ur Culture Indicated? Cancelled C&S Done As Ordered Urine Glucose Negative Lyme Disease Antibody COVID-19 Source SARS-CoV-2 (PCR) Influenza Type A (PCR) Influenza Type B (PCR) RSV (PCR) 01/24/25 06:36 WBC 5.60 RBC 3.55 L Hgb 10.4 L D Hct 30.9 L MCV 87 MCH 29.3 MCHC 33.7 RDW 12.9 Plt Count 116 L MPV Immature Gran % 0.2 Neutrophils % 79.4 Lymphocytes % 15.7 Monocytes % 4.1 Eosinophils % 0.4 Basophils % 0.2 Nucleated RBC % 0.0 Absolute Neutrophils 4.45 Absolute Lymphocytes 0.88 L Absolute Monocytes 0.23 Absolute Eosinophils 0.02 Absolute Basophils 0.01 ESR 19 VBG Lactate Sodium 137 Potassium 3.2 L Chloride 102 Carbon Dioxide 25.3 Anion Gap 9.7 BUN 23 H Creatinine 0.8 Est GFR (CKD-EPI 2020) 74.90 Glucose 109 H Calcium 8.2 L Total Bilirubin 0.8 AST 34 ALT 40 Alkaline Phosphatase 106 C-Reactive Protein 17.90 H Total Protein 6.1 L Albumin 2.7 L Procalcitonin Urine Color Urine Clarity Urine pH Ur Specific [place] Urine Protein Urine Ketones Urine Blood Urine Nitrite Urine Bilirubin Urine Urobilinogen Ur Leukocyte Esterase Urine RBC Urine WBC Ur Epithelial Cells Urine Crystals Urine Bacteria Urine Casts Urine Mucus Urine Other Ur Culture Indicated? Urine Glucose Lyme Disease Antibody COVID-19 Source SARS-CoV-2 (PCR) Influenza Type A (PCR) Influenza Type B (PCR) RSV (PCR) Time Spent with Patient Time Spent with Patient: >50 minutes Time was spent: preparing to see the patient(eg.review tests), obtaining and/or reviewing separately otained hiistory, ordering medications,tests, procedures, referring, communicating with other health critical care educator, indepentently interpreting results, counseling the patient and care coordination
[2025-01-24 13:58] LABS: Magnesium 1.6 mg/dL (1.8-2.4)
[2025-01-24] MEDS: Normal Saline 1,000 ML 75 ML IV (13:59)
[2025-01-24] MEDS: Pantoprazole 40 MG VIAL IVP (15:12)
[2025-01-24] MEDS: Potassium Chloride 20 MEQ TABCR 40 MEQ PO ×2 (15:12→21:04)
[2025-01-24] MEDS: MAGNESIUM SULFATE 2 GM/50 ML BAG IV_INF (15:12)
--- NOTE | 2025-01-24 15:50 | PHA.REVIEW2 ---
Pharmacy Admission Review Admission Clinical Review Admission Pharmacy Review: Positive Lyme disease serology (Acute) Dehydration (Acute) Lymphopenia (Acute) Sepsis (Acute) Fever (Acute) Tick bite of axillary region (Acute) neomycin Allergy (Unknown, Verified 01/23/25 17:00) Other (See Comment) piperazine Allergy (Unknown, Verified 01/23/25 17:00) Hives Opioids - Morphine Analogues Adverse Reaction (Severe, Verified 01/23/25 17:00) Psychosis Airjwcb-LWA-[id number] Reductase Inhibitor (Hjmfwba-Bfx-Nik Reductase Inhibitor) Adverse Reaction (Mild, Verified 01/23/25 17:00) MUSCLE PAIN Resuscitation Status Full Code Height 5 ft 2 in Weight 58.967 kg Comments Comments/Follow Ups: Watch VS, SCr, mag, K+, labs, for culture results and for med changes (IV to PO, possible renal dose adjustments) Pharmacy Admission Review Renal Dosing Renal Dosing: BUN 23 mg/dL (7-18) H 01/24/25 06:36 Creatinine 0.8 mg/dL (0.55-1.02) 01/24/25 06:36 Medications needing adjustments: Intervened (Crcl ~45.1 mL/min current meds are okay, zosyn was increased back to 4.5g Q6H due to improvement in renal function) Anticoagulation Anticoagulation: Hgb 10.4 g/dL (11.2-15.7) L D 01/24/25 06:36 Hct 30.9 % (36.0-46.0) L 01/24/25 06:36 Plt Count 116 10^3/uL (130-400) L 01/24/25 06:36 Creatinine 0.8 mg/dL (0.55-1.02) 01/24/25 06:36 DVT Prophylaxis: Intervened (LMWH mentioned in H&P but not currently ordered. Mentioned to provider, provider plans to order TEDs) Opiate Usage Evaluate Pain Scale/Pains Meds: N/A Relevant Labs Relevant Labs: ESR 19 mm/hr (0-30) 01/24/25 06:36 Sodium 137 mmol/L (136-145) 01/24/25 06:36 Potassium 3.2 mmol/L (3.5-5.1) L 01/24/25 06:36 Chloride 102 mmol/L (98-107) 01/24/25 06:36 Magnesium 1.6 mg/dL (1.8-2.4) L 01/24/25 06:30 C-Reactive Protein 17.90 mg/dL (<or=0.5) H 01/24/25 06:36 Electrolytes, C-Reactive P, ESR: Reviewed (IV mag and PO K+ replacement ordered) DM Control DM Control: Glucose 109 mg/dL (74-106) H 01/24/25 06:36 DM Control: Reviewed (No DM noted in pt's medical history, A1c 6.0 on 01/23/25) Cardiac Review BP, HR, EF%: Reviewed (BP has been up and down and HR has been normal to high so far this admission. ) QTc Review QTc: N/A IV to PO Switch IV Medications: Reviewed Home Meds Home Med List reviewed: Reviewed Relevent Home Meds Not ordered & why?: betamethasone cream (PRN), mometasone topical solution (PRN) Current Meds Current Medication Order Review: Intervened (changed zosyn from premix to admix as the premix is non-formulary/we do not have any in stock. ) Pharmacy Antibiotic Review Relevant Labs: Relevant Labs 01/24/25 06:36 C-Reactive Protein 17.90 H Pharmacy Antibiotic Activity: C/S review and Renal function adjustment Comments: Urine culture is growing E.coli, blood cultures are no growth @24H x2 and pending x2. Doxy and zosyn continue. As mentioned above, zosyn dosing adjusted due to improvement in renal function. Comments Comments/Follow Ups: Watch VS, SCr, mag, K+, labs, for culture results and for med changes (IV to PO, possible renal dose adjustments)
[2025-01-24] MEDS: PIPERACILLIN/TAZO 4.5 GM in Normal Saline 100 ML IVPB ×2 (16:41→21:03)
[2025-01-24 19:19] LABS: Lab Add On Test DONE
[2025-01-25] MEDS: PIPERACILLIN/TAZO 4.5 GM in Normal Saline 100 ML IVPB ×2 (03:40→10:50)
[2025-01-25 04:00] VITALS: BP 102/64; PULSE 73; RESP 20; TEMP 36.5; O2SAT 97
[2025-01-25] MEDS: Levothyroxine 50 MCG TAB PO (05:41)
[2025-01-25] MEDS: DOXYCYCLINE 100 MG in Normal Saline 100 ML IVPB (05:41)
[2025-01-25 07:34] LABS: Absolute Eosinophil Count 0.09 10^3/uL (0.0-0.7); HCT 30.1 % (36.0-46.0); HGB 10.1 g/dL (11.2-15.7); MCH 29.7 pg (27.0-33.0); MCHC 33.6 % (32.0-36.0); MCV 89 fL (80-95); MPV 12.1 fL (8.0-11.0); RDW 13.2 % (11.7-14.6); RDW-SD 42.5 fL; WBC 3.07 10^3/uL (4.4-10.8)
[2025-01-25 07:41] VITALS: BP 128/68; PULSE 74; RESP 16; TEMP 36.8; O2SAT 97
[2025-01-25 08:15] LABS: BUN 13 mg/dL (7-18); CREATININE 0.7 mg/dL (0.55-1.02); Calcium 8.2 mg/dL (8.5-10.1); Chloride 108 mmol/L (98-107); Estimated GFR 87.92 (mL/min/1.73m2); Glucose 101 mg/dL (74-106); Potassium 4.3 mmol/L (3.5-5.1); Sodium 141 mmol/L (136-145)
[2025-01-25 08:29] LABS: Absolute Basophil Count 0.03 10^3/uL (0.0-0.2); Absolute Lymphocyte Count 1.26 10^3/uL (1.2-3.4); Absolute Monocyte Count 0.18 10^3/uL (0.1-0.8); Atypical Lymphocytes % 1 %; Diff Comment Manual Differential; RBC Morphology Normal
[2025-01-25] MEDS: Pantoprazole 40 MG VIAL IVP (08:32)
[2025-01-25] MEDS: Cholecalciferol (Vitamin D3) 1,000 UNIT TAB 2000 UNITS PO (08:33)
[2025-01-25] MEDS: hydroCHLOROthiazide 12.5 MG TAB PO (08:33)
[2025-01-25] MEDS: Potassium Chloride 20 MEQ TABCR 40 MEQ PO (08:33)
[2025-01-25] MEDS: buPROPion-CR 150 MG TABCR PO (08:33)
[2025-01-25] MEDS: Losartan 50 MG TAB 100 MG PO (08:33)
--- NOTE | 2025-01-25 11:03 | DSE_ITS ---
Date of service: 01/25/25 Time of Service: 11:03 DS: Diagnosis Discharge Diagnosis (1) Sepsis: Status: Acute (2) Positive Lyme disease serology: Status: Acute (3) Urinary tract infectious disease: Status: Resolved (4) Dehydration: Status: Acute (5) Lymphopenia: Status: Acute (6) Tick bite of axillary region: Status: Acute (7) Fever: Status: Acute (8) Hypertension: Status: Chronic (9) GERD (gastroesophageal reflux disease): (10) Hypothyroidism: (11) Hyperlipidemia: Status: Chronic (12) Anemia: Status: Chronic (13) Thrombocytopenia: Status: Chronic Discharge Plan Disposition Patient Disposition: Home Condition: Improving Discharge Details Reason For Visit: sepsis Admit Date/Time: 01/23/25 16:37 Admit Provider: Brant Enriquez Attending Provider: Brant Enriquez Primary Care Provider: Suzanne Bunn [facility] Course Hospital Course: This 79 years old female patient with medical history of hypertension hypothyroidism GERD presented to the ED at [facility] with complaints of malaise for the past 3 days, cough, fevers max 103. Her workup shows sepsis without septic shock. She was started on Zosyn and doxycycline. Her urine did grow a pansensitive E. coli. Her Lyme antibody was positive. She remained hemodynamically stable feeling much improved. She was eating and drinking b owels and bladder functioning. She has been afebrile blood cultures have been negative to date. She is stable for discharge to home she will be discharged on 5 days of cefpodoxime for her urinary tract infection and 21 days of doxycycline to treat her Lyme disease. She should follow-up with primary care provider or return sooner for new or worsening symptoms. Discharge discussed with Dr. Tanvir Salter and New Rx's Prescriptions: New cefpodoxime 200 mg tablet 200 mg PO BID Qty: 10 0RF Rx Instructions: must administer with a meal/food doxycycline hyclate 100 mg capsule 100 mg PO BID Qty: 42 0RF Continued mometasone 0.1 % solution 1 applic topical DAILY PRN (Reason: skin irritation) Qty: 60 5RF cholecalciferol (vitamin D3) 50 mcg (2,000 unit) capsule 50 mcg PO DAILY levothyroxine 50 mcg tablet 50 mcg PO DAILY Qty: 90 3RF hydrochlorothiazide 12.5 mg tablet 12.5 mg PO QAM Qty: 90 3RF pantoprazole 40 mg tablet,delayed release (DR/EC) 40 mg PO DAILY PRN (Reason: GERD) Qty: 90 4RF losartan 100 mg tablet 100 mg PO DAILY Qty: 90 12RF betamethasone dipropionate 0.05 % cream 1 applic topical BID PRN (Reason: skin irritation) Qty: 45 5RF bupropion HCl 150 mg tablet sustained-release 12 hr 150 mg PO QAM Qty: 90 5RF Discharge Instructions Instructions: Lyme disease, Urinary Tract Infection, Adult ED Additional Instructions: Complete antibiotics as prescribed, even if you feel better push fluids to stay well hydrated. resume usual medications as prescribed. Stand Alone Forms: Nursing Discharge Form Referrals: Suzanne Bunn MD, [place] [Primary Care Provider, Medicine] Referral Note: Please call the office on Monday to set up a hospital follow up within 7-10 days Activity:: Activity as Tolerated Equipment/Supplies:: No Equipment Needed Diet:: As Tolerated Discharge Orders Discharge Orders: Discharge Order (Routine); Ordered 01/25/25 Ordered By: Shanell Hull Discharge Data Discharge Date/Time-TO BE ENTERED AT DEPARTURE: 01/25/25 12:32 DS: Summary Time Spent with Patient providing and/or coordinating discharge services: Greater than 30 minutes Status at Discharge Functional status at discharge: independent ambulation Overall status at discharge: patient is progressing back to baseline Mental Status: mental status grossly normal Speech and Movement: speech and movement normal Mood: congruent mood Affect: normal affect Quality:SDOH Health Related Social Needs: Health related social needs details none Exam Narrative Exam Narrative: Well-appearing female of stated age no acute distress head is atraumatic eyes nonicteric noninjected oral mucosa is moist neck is supple no JVD cardiovascular regular rate and rhythm respirations even and unlabored abdomen benign moves all extremities skin is pink warm dry well-perfused Psych Mental Status: mental status grossly normal Speech and Movement: speech and movement normal Mood: congruent mood Affect: normal affect DS: Data Vitals/I&O Vitals and I&O: Vital Signs Temperature 36.8 C 01/25/25 07:41 Temperature Source Temporal Artery Scan 01/25/25 07:41 Pulse 74 01/25/25 07:41 Pulse Rhythm Irregular 01/23/25 17:24 Respiratory Rate 16 01/25/25 07:41 Respiratory Effort Normal 01/23/25 17:24 Respiratory Depth Normal 01/23/25 17:24 Respiratory Pattern Normal 01/23/25 17:24 Blood Pressure 128/68 01/25/25 07:41 Blood Pressure Mean 88 01/25/25 07:41 Blood Pressure Position Supine 01/23/25 16:35 Pulse Oximetry 97 01/25/25 07:41 Oxygen Delivery Method Room Air 01/25/25 07:41 Oxygen Flow Rate 0 01/25/25 07:41 Pain Level 0 01/24/25 07:24 Intake & Output 01/24/25 01/24/25 01/25/25 11:59 23:59 11:59 Intake Total 1290 / 1740 450 / 1740 1200 / 1200 Output Total 400 / 1250 850 / 1250 Balance 890 / 490 -400 / 490 1200 / 1200 Intake: IV 1050 / 1500 450 / 1500 1200 / 1200 Oral 240 / 240 Output: Urine 400 / 1250 850 / 1250 Other: Urine Color Yellow Yellow Urine Appearance Clear Clear Urine Odor Normal Comment pt voided independently in the bathroom pt reports she has voided independently Stool Size Small Small Stool Characteristics Soft Liquid Formed Brown Brown Data Completed and Pending Labs on day of discharge: Labs from last 24 hours 01/25/25 01/24/25 01/24/25 06:40 Unknown 06:36 WBC 3.07 L RBC 3.40 L Hgb 10.1 L Hct 30.1 L MCV 89 MCH 29.7 MCHC 33.6 RDW 13.2 Plt Count MPV 12.1 H Immature Gran % 0.0 Neutrophils % 49.0 Lymphocytes % 40.0 Atypical Lymphs % 1 Monocytes % 6.0 Eosinophils % 3.0 Basophils % 1.0 Nucleated RBC % 0.0 Absolute Neutrophils 1.50 Absolute Lymphocytes 1.26 Absolute Monocytes 0.18 Absolute Eosinophils 0.09 Absolute Basophils 0.03 RBC Morphology Normal Sodium 141 Potassium 4.3 D Chloride 108 H Carbon Dioxide 25.0 Anion Gap 8.0 BUN 13 Creatinine 0.7 Est GFR (CKD-EPI 2020) 87.92 Glucose 101 Calcium 8.2 L Magnesium 2.0 B. divergens/MO-1 PCR Cancelled Babesia duncani (PCR) Cancelled Babesia microti DNA PCR Cancelled B.burgdorferi IgG B.burgdorferi IgM Lyme Disease Antibody Cancelled Lyme Ab Interpretation E.chaffeensis DNA (PCR) Cancelled E.ewingii/canis DNA PCR Cancelled E.muris eauclairensis (PCR) Cancelled A. phagocytophilum (PCR) Cancelled Blood B. miyamotoi (PCR) Cancelled Add-On Test Request DONE 01/24/25 01/23/25 06:30 14:13 WBC RBC Hgb Hct MCV MCH MCHC RDW Plt Count MPV Immature Gran % Neutrophils % Lymphocytes % Atypical Lymphs % Monocytes % Eosinophils % Basophils % Nucleated RBC % Absolute Neutrophils Absolute Lymphocytes Absolute Monocytes Absolute Eosinophils Absolute Basophils RBC Morphology Sodium Potassium Chloride Carbon Dioxide Anion Gap BUN Creatinine Est GFR (CKD-EPI 2020) Glucose Calcium Magnesium 1.6 L B. divergens/MO-1 PCR Babesia duncani (PCR) Babesia microti DNA PCR B.burgdorferi IgG Positive A B.burgdorferi IgM Positive A Lyme Disease Antibody Positive A Lyme Ab Interpretation See Comment E.chaffeensis DNA (PCR) E.ewingii/canis DNA PCR E.muris eauclairensis (PCR) A. phagocytophilum (PCR) Blood B. miyamotoi (PCR) Add-On Test Request Preliminary micro results at discharge 01/23/25 18:35 Blood Blood Culture - Preliminary NO GROWTH 24 HOURS 01/23/25 14:13 Blood Blood Culture - Preliminary NO GROWTH 24 HOURS PFSH All Active Problems (Updated 01/24/25 @ 14:03 by Sarah Rodgers APRN) Thrombocytopenia (Chronic) Anemia (Chronic) Positive Lyme disease serology (Acute) Systemic inflammatory response syndrome (SIRS) (Acute) Dehydration (Acute) Lymphopenia (Acute) Sepsis (Acute) Fever (Acute) Fever and chills (Acute) Sleep apnea (Acute) Decreased hearing of both ears (Acute) Quadriceps muscle strain (Acute) Sebaceous cyst (Acute) Vaginitis (Acute) Sacroiliac dysfunction (Acute) Tendinitis of right quadriceps tendon (Acute) Pes anserinus bursitis of left knee (Acute) Lumbar radiculopathy (Acute) Shoulder pain (Acute) Vertigo (Acute) Hypertension (Chronic) Tick bite of axillary region (Acute) Cough (Acute) Wrist pain (Acute) Chronic thumb pain (Acute) Sensorineural hearing loss of both ears (Acute) Decreased hearing (Acute) Arthralgia (Acute) Right leg pain (Acute) Left hip pain (Acute) Grief (Acute) Vitamin D deficiency (Chronic 07/08/11) Tubular adenoma (Chronic 11/28/17) Seborrheic keratosis (Chronic 04/18/17) RUQ abdominal pain (Chronic 06/19/17) Psoriasis (Chronic 01/18/18) Osteopenia (Chronic) DEXA 03: -1.3/-0.3/-0.1; DEXA 05: -1.8/-0.9/-1.1 Obstructive sleep apnea syndrome (Chronic) Sleep study showed moderate obstructive sleep apnea w/ some desaturation; no CPAP due to claustrophobia Neck pain (Chronic) DECREASED L BICEPS JERK; C5-6 NARROWING Medial epicondylitis of right elbow (Chronic 04/18/17) Knee pain (Chronic) PES ANSERINE BURSITIS; S/P TKR Joint pain (Chronic 04/29/12) HAND Irritable colon (Chronic) RECURRENT ABD PAIN; NEG GB Impaired fasting glucose (Chronic 07/04/11) Hypothyroidism (Chronic) CHRONIC THYROIDITIS, S/P BX '97 Hyperlipidemia (Chronic) LIPITOR RX Gastroesophageal reflux disease with esophagitis (Chronic) 97 GIRISH TEST POS; 07 EGD: GERD, NEG H. PYLORI Essential hypertension (Chronic 05/24/13) Dysphagia (Chronic 06/02/14) s/p barium swallow Dyshidrosis [pompholyx] (Chronic) Disorder of lung (Chronic 07/30/03) 08/03 CXR: RML CALCIFICATION; S/P bx Deviated nasal septum (Chronic) turbinate surgery Chronic left shoulder pain (Chronic 01/02/17) Arthritis (Chronic) PSORIAFORM Abdominal pain (Chronic 06/02/14) Pulmonary embolism (Chronic 12/07/12) Thought to be secondary to recent total knee replacement done at [facility] [place] on 11/27/2012. Medical History (Updated 01/24/25 @ 14:03 by Sarah Rodgers APRN) Skin change URI (upper respiratory infection) Ganglion cyst of volar aspect of right wrist Medial epicondylitis of right elbow (04/18/17) Neck pain Stress due to illness of family member (05/24/16) pulmonary hypertension Depressive disorder GERD (gastroesophageal reflux disease) Hypothyroidism ASHLEIGH (obstructive sleep apnea) Surgical History (Updated 10/14/24 @ 09:00 by REY Gross) Arthrofibrosis of total knee arthroplasty s/p Left knee manipulation under anesthesia 11/29/23 S/P Left knee arthroscopic synovectomy: 08/30/2024 History of total left knee replacement (10/04/23) History of appendectomy History of hand surgery Replacement of total knee joint RIGHT KNEE REPAIR (~2011) TORN MINISCUS Hysterectomy, Laproscopic TOTAL; AGE 33. Colonoscopy - MAC (11/28/17) Family History Mother , 83 COPD (chronic obstructive pulmonary disease) Father , 65 Lung cancer Brain cancer Brother Psoriasis Maternal Grandfather No problems noted. Paternal Grandfather MS (multiple sclerosis) Maternal Grandmother Diabetes Paternal Grandmother Diabetes Son Essential hypertension Anxiety Hyperlipidemia Daughter Thyroid cancer Brother No problems noted. Social History Smoking/Tobacco Use Status: Never Second Hand Exposure: Yes Smoking risk assessment performed?: Yes Alcohol Intake: current Alcohol Intake frequency: holidays/special occasions only Alcohol type: wine Drug use: Never Substance use type: does not use Counseling given: No Counseling provided: none Caregiver/Support person: No Household members: none Housing: house Communication Needs: None Do you need help understanding health information?: Never Pets and animals: Yes Pets and animals: cat(s) Sexually active: No Do you think of yourself as: straight/heterosexual Current gender identity: female What is your relationship status?: How often do you talk on the phone with friends or family?: three or more times per week How often do you get together with friends or relatives?: three or more times per week How often do you attend mu-ism or shinto services?: decline to answer Do you belong to any clubs or organized social groups?: yes Panel score (0-1 are the most socially isolated patients): 2 What type of physical activity do you participate in: aerobic Duration: < 15 minutes/day Frequency: 3-4 times per week Claudia/Protestant: Spiritism Special claudia needs: No Seatbelt use: always Helmet use: No 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
--- NOTE | 2025-01-25 12:17 | PDOC.CMDIS ---
Date of service: 01/25/25 Time of Service: 12:17 LACE Index Scoring Tool Questions: Length of Stay (in days): 2 Was the patient admitted via the E.D.?: Yes E.D. Visits: 0 Answers: Total Score: 5 Risk of Readmission: Low Risk Care Management Discharge Plan Reason for Hospitalization: sepsis Discharge Plan: Nyla will return home today with no new services. She will transport via private vehicle by family. She will follow up with her PCP and discharge plan of care. Patient/Family Education Needs: Review discharge instructions and limitations, discussion of self care needs including ask me three. SDOH Health Related Social Needs: Health related social needs details none
[2025-01-25 23:19] LABS: Anaplasma phagocytophilum Negative (Negative); B. miyamotoi PCR Negative (Negative); Babesia divergens/MO-1 Negative (Negative); Babesia duncani Negative (Negative); Babesia microti Negative (Negative); Ehrlichia chaffeensis Negative (Negative); Ehrlichia ewingii/canis Negative (Negative); Ehrlichia muris eauclairensis Negative (Negative)
== END 2025-01-25 12:32 | disposition home or self-care (01) | DRG 872 ==
LOC: ER 16:24 → MS 17:19
PROVIDERS: Nurse Practitioner Acute Care; Admitting Provider Family Medicine; Emergency Provider Student in an Organized Health Care Education/Training Program; PCP Family Medicine; Responsible Provider Nurse Practitioner Acute Care; Visit Provider Family Medicine
DX: A41.9 Sepsis, unspecified organism (principal); E86.0 Dehydration; D72.810 Lymphocytopenia; W57.XXXA Bitten or stung by nonvenomous insect and other nonvenomous arthropods, initial encounter; I10 Essential (primary) hypertension; K21.9 Gastro-esophageal reflux disease without esophagitis; E03.9 Hypothyroidism, unspecified; E78.5 Hyperlipidemia, unspecified; N39.0 Urinary tract infection, site not specified; D64.9 Anemia, unspecified; D69.6 Thrombocytopenia, unspecified; E87.1 Hypo-osmolality and hyponatremia; A69.20 Lyme disease, unspecified; S40.862A Insect bite (nonvenomous) of left upper arm, initial encounter; R74.01 Elevation of levels of liver transaminase levels; M54.16 Radiculopathy, lumbar region; E55.9 Vitamin D deficiency, unspecified; G47.33 Obstructive sleep apnea (adult) (pediatric); K58.9 Irritable bowel syndrome, unspecified; M85.80 Other specified disorders of bone density and structure, unspecified site; R73.01 Impaired fasting glucose; Z86.711 Personal history of pulmonary embolism; Z96.653 Presence of artificial knee joint, bilateral; B96.20 Unspecified Escherichia coli [E. coli] as the cause of diseases classified elsewhere
CPT/HCPCS: 00123; 36415; 71275; 80048; 80053; 80061; 84145; 85027; 85652; 86617; 87040; 87077; 87637; 87798; 96361; 96365; 96375; 99291; 71046; 81003; 81015; 82270; 82272; 83036; 83605; 83735; 84443; 85025; 86140; 86618; 87086; 87186; 99223; 99233; 99239; J1885; J2470; J2543; J3475; J3490

== ENCOUNTER 2025-02-03 14:34 | Outpatient (REF) | payer MEDICARE, SELFPAY ==
[2025-02-03 16:38] LABS: Glucose Negative (Negative)
[2025-02-03 16:47] LABS: C & S Indicated? No; RBC 0-2 HPF (0-2); WBC Negative HPF (0-5)
== END 2025-02-03 14:35 | disposition home or self-care (01) ==
LOC: LBN 14:34
PROVIDERS: PCP Family Medicine; Visit Provider Family Medicine
DX: R30.0 Dysuria (principal)
CPT/HCPCS: 81003; 81015

== ENCOUNTER 2025-02-12 02:09 | Outpatient (CLI) | payer MEDICARE, SELFPAY ==
--- NOTE | 2025-02-12 07:15 | DI.US_ITS ---
Exam(s) US ABDOMEN EXAM: US ABDOMEN CLINICAL HISTORY: severe epigastric pain,r10.13 TECHNIQUE: Ultrasound abdomen performed using standard protocol. COMPARISON: No exams were available for comparison FINDINGS: ABDOMINAL AORTA AND IVC: Visualized portions normal caliber. PANCREAS: Normal where visualized. LIVER: Normal. Hepatopetal flow in the Portal Vein. There is a stable 2 cm cyst in the liver. No follow-up is recommended. The liver measures 13.4cm long. GALLBLADDER:No evidence of cholelithiasis. No evidence of wall thickening. No pericholecystic fluid identified. BILIARY SYSTEM: Common bile duct measures < 7 mm. No intrahepatic biliary ductal dilation. WALLACE'S SIGN: Negative. KIDNEYS: Kidneys are symmetric in size. No evidence of renal calculi. No evidence of hydronephrosis. There are small simple cysts in the left kidney. The largest measures 0.9 cm. No follow-up is recommended. SPLEEN: Not enlarged. ASCITES: None seen. IMPRESSION: No acute abdominal process. DATA REPOSITORY:
== END 2025-02-12 02:29 ==
LOC: DI 02:09
PROVIDERS: PCP Family Medicine; Visit Provider Family Medicine
DX: R10.13 Epigastric pain (principal)
CPT/HCPCS: 76700

== ENCOUNTER 2025-04-04 15:08 | Outpatient (CLI) | payer MEDICARE, SELFPAY ==
[2025-04-04 12:28] LABS: HCT 39.0 % (36.0-46.0); HGB 12.9 g/dL (11.2-15.7); MCH 29.4 pg (27.0-33.0); MCHC 33.1 % (32.0-36.0); MCV 89 fL (80-95); MPV 11.8 fL (8.0-11.0); Platelet Count 178 10^3/uL (130-400); RBC 4.39 10^6/uL (3.93-5.22); RDW 13.2 % (11.7-14.6); RDW-SD 43.4 fL; WBC 4.23 10^3/uL (4.4-10.8)
[2025-04-04 13:00] LABS: Iron 91 ug/dL (50-170)
[2025-04-04 13:15] LABS: ALT 17 U/L (14-59); AST 18 U/L (15-37); Albumin 4.0 g/dL (3.4-5.0); Alkaline Phosphatase 77 U/L (46-116); Anion Gap 7.8 mmol/L (3-11); BUN 25 mg/dL (7-18); Bilirubin, Total 0.6 mg/dL (0.2-1.0); CO2 30.2 mmol/L (21.0-32.0); Calcium 9.4 mg/dL (8.5-10.1); Chloride 102 mmol/L (98-107); Estimated GFR 74.90 (mL/min/1.73m2); Ferritin 43 ng/mL (8-252); Glucose 103 mg/dL (74-106); Potassium 4.0 mmol/L (3.5-5.1); Sodium 140 mmol/L (136-145); TSH (W/Ref FT4) 2.84 uIU/mL (0.36-3.74); Total Protein 7.3 g/dL (6.4-8.2)
[2025-04-04 13:28] LABS: C-Reactive Protein < 0.50 mg/dL (<or=0.5)
== END 2025-04-04 15:09 | disposition home or self-care (01) ==
LOC: LOS 15:08
PROVIDERS: PCP Family Medicine; Visit Provider Family Medicine
DX: I10 Essential (primary) hypertension (principal); R79.82 Elevated C-reactive protein (CRP); D64.9 Anemia, unspecified; E03.9 Hypothyroidism, unspecified
CPT/HCPCS: 36415; 80053; 85027; 82728; 83540; 84443; 86140

== ENCOUNTER 2025-05-20 00:20 | Outpatient (CLI) | payer MEDICARE, SELFPAY ==
--- NOTE | 2025-05-20 07:15 | DI.RAD_ITS ---
Exam(s) XR SHOULDER LT COMPLETE 2+V EXAM: XR SHOULDER LT COMPLETE 2+V CLINICAL HISTORY: left shoulder pain,M25.519. TECHNIQUE: 2D digital imaging was performed of the left shoulder. Five images were obtained. AP, Grashey, Y-view and axillary views were obtained. COMPARISON: CR RIGHT SHOULDER COMPLETE from 04/01/2010 CR CHEST 2 VIEWS PA,LAT from 10/08/2015 FINDINGS: BONES: No acute fracture is present. No bony destructive lesion is seen. JOINTS: No dislocation present. The glenohumeral joint is well maintained. There are mild degenerative changes at the AC joint. SOFT TISSUE: Normal. IMPRESSION: Mild degenerative changes of the AC joint. DATA REPOSITORY: RADIATION DOSE DELIVERED:
== END 2025-05-20 00:40 ==
LOC: DI 00:20
PROVIDERS: PCP Family Medicine; Visit Provider Family Medicine
DX: M25.512 Pain in left shoulder (principal)
CPT/HCPCS: 73030

== ENCOUNTER 2025-06-09 09:15 | Outpatient (CLI) | payer MEDICARE, SELFPAY ==
[2025-06-09 12:14] LABS: Abs Immature Grans 0.01 10^3/uL (0.0-0.06); HCT 37.6 % (36.0-46.0); HGB 12.6 g/dL (11.2-15.7); Immature Grans % 0.2 %; MCH 29.0 pg (27.0-33.0); MCHC 33.5 % (32.0-36.0); MCV 87 fL (80-95); Platelet Count 174 10^3/uL (130-400); RBC 4.34 10^6/uL (3.93-5.22); RDW 12.6 % (11.7-14.6); RDW-SD 40.4 fL; WBC 4.94 10^3/uL (4.4-10.8)
[2025-06-09 12:17] LABS: ESR 7 mm/hr (0-30)
[2025-06-09 12:29] LABS: ALT 16 U/L (14-59); AST 16 U/L (15-37); Albumin 3.9 g/dL (3.4-5.0); Alkaline Phosphatase 91 U/L (46-116); Anion Gap 8.0 mmol/L (3-11); BUN 23 mg/dL (7-18); Bilirubin, Total 0.4 mg/dL (0.2-1.0); CO2 30.0 mmol/L (21.0-32.0); Calcium 8.9 mg/dL (8.5-10.1); Chloride 102 mmol/L (98-107); Glucose 91 mg/dL (74-106); Potassium 3.7 mmol/L (3.5-5.1); Sodium 140 mmol/L (136-145); Total Protein 7.6 g/dL (6.4-8.2)
[2025-06-09 12:36] LABS: C-Reactive Protein < 0.50 mg/dL (<or=0.5)
== END 2025-06-09 09:16 | disposition home or self-care (01) ==
LOC: LBO 09:16
PROVIDERS: PCP Family Medicine; Visit Provider Family Medicine
DX: M79.18 Myalgia, other site (principal); I10 Essential (primary) hypertension; R53.83 Other fatigue
CPT/HCPCS: 36415; 80053; 85652; 85025; 86140

== ENCOUNTER → 2025-07-29 14:36 | Outpatient (CLI) | payer MEDICARE, SELFPAY ==
--- NOTE | 2025-07-29 07:07 | DI.RAD_ITS ---
Exam(s) XR THORACIC SPINE COMPLETE EXAM: XR THORACIC SPINE COMPLETE CLINICAL HISTORY: upper left pain,upper back and neck pain, m54.9. TECHNIQUE: 2D digital imaging was performed. Three views. COMPARISON: CT CT CHEST PE CTA from 01/23/2025 CR XR CERVICAL SPINE COMP 4-5V from 07/29/2025 FINDINGS: BONES: There is no fracture or destructive lesion. The vertebral bodies and posterior elements are unremarkable. ALIGNMENT: Within normal limits. DISKS: Mild narrowing of the anterior portion of the disc spaces in the mid thoracic region. There are endplate osteophytes in the mid thoracic region projecting anteriorly and toward the right. SOFT TISSUE: Circumscribed nodules again noted in the right upper lobe. IMPRESSION: Moderate degenerative changes of the midthoracic spine. DATA REPOSITORY: RADIATION DOSE DELIVERED:
--- NOTE | 2025-07-29 07:07 | DI.RAD_ITS ---
Exam(s) XR CERVICAL SPINE COMP 4-5V EXAM: XR CERVICAL SPINE COMP 4-5V CLINICAL HISTORY: left neck pain,upper back pain,m54.2. TECHNIQUE: 2D digital imaging was performed. Five views were performed. COMPARISON: No exams were available for comparison FINDINGS: BONES: No fracture or destructive lesion. Vertebral bodies are unremarkable. There are facet degenerative changes throughout, greatest at C2-3 on the left, causing neural foraminal narrowing. DISKS: The C2-3 through C4-5 as well as C7-T1 intervertebral disc spaces are maintained. There is severe narrowing of the C5-6 and C6-7 disc spaces. There are small endplate osteophytes. There is mild neural foraminal narrowing on the left at C 2 3 and C5-6. ALIGNMENT: Cervical spinal alignment is within normal limits. The odontoid and atlantoaxial articulations are normal. SOFT TISSUE: Normal. The lung apices are clear. IMPRESSION: Advanced degenerative disc changes at C5-6 and C6-7. Neural foraminal narrowing at C5-6 on the left. DATA REPOSITORY: RADIATION DOSE DELIVERED:
== END ==
LOC: DI 08-06 14:36
PROVIDERS: PCP Family Medicine; Visit Provider Family Medicine
DX: M51.34 Other intervertebral disc degeneration, thoracic region (principal); M99.61 Osseous and subluxation stenosis of intervertebral foramina of cervical region; M50.022 Cervical disc disorder at C5-C6 level with myelopathy; M50.023 Cervical disc disorder at C6-C7 level with myelopathy
CPT/HCPCS: 72050; 72072